=== PATIENT | female | born 1950 | race Caucasian/White ===

== ENCOUNTER 2019-02-18 11:40 | Observation (INO) | payer MEDICARE, OTHER ==
[~2019-02-18] VITALS: Ht 165.1 cm; Wt 90.7 kg
--- NOTE | ~2019-02-18 | HEMODYNAMI ---
PATIENT:ELANA CHERRY MEDICAL RECORD: [id number] : 48 LOCATION:[facility] D.2117 ADMISSION DATE: 02/18/19 Generatedon:02/19/201911:13 Patient name: ELANA CHERRY Patient #: [id number] SSN: : Date of study: 02/19/2019 Page: Of Hemodynamic Procedure Report Patient Data Patient Demographics Procedure consent was obtained First Name: ELANA Gender: Female Last Name: : 1950 [facility] Initial: MAYO Age: 68 year(s) Patient #: [id number] Race: Unknown Additional ID: [id number] Contact details [address]: [address] [place] [address] State: [place] City: [place] Zip code: [address] Admission Admission Data Admission Date: 02/18/2019 Admission Time: 14:12 Arrival Date: 02/18/2019 Arrival Time: 14:12 Admit Source: Other Insurance Payor: Medicare Room #: D.2117 Height (in.): 64.96 BSA: 1.98 (m2) Height (cm.): 165 BMI: 33.39 (kg/m2) Weight (lbs.): 200.4 Weight (kg.): 90.9 Lab Results Lab Result Date: 02/19/2019 Lab Result Time: 0:00 Biochemistry Name Units Result Min Max BUN mg/dl 17 --(---*)-- 7 18 Creatinine mg/dl 1.1 --(--*-)-- 0.6 1.3 CBC Name Units Result Min Max Hemoglobin g/dl 11.7 *-(----)-- 13.5 17.5 Procedure Procedure Types Cath Procedure Diagnostic Procedure [facility] w/Coronaries Procedure Description Procedure Date Procedure Date: 02/19/2019 Procedure Start Time: 11:01 Procedure End Time: 11:11 Procedure Staff Name Function Yasir Quiros MD Performing Physician Jian Montes De Oca RN Nurse Waldo White RT Scrub Adonis Varela RT Monitor Procedure Data Cath Procedure Fluoroscopy Diagnostic fluoroscopy Total fluoroscopy Time: 0.9 time: 0.9 min min Diagnostic fluoroscopy Total fluoroscopy dose: 385 dose: 385 mGy mGy Contrast Material Contrast Material Type Amount (ml) Isovue 370 46 Entry Location Entry Primary Successful Side Size Upsize Upsize Entry Closure Flores ccessful Closure Location (Fr) 1 (Fr) 2 (Fr) Remarks Device Remarks Radial Right 6 Fr Mechanical artery Short Compression Estimated blood loss: 10 ml Procedure Complications No complications Procedure Medications Medication Administration Route Dosage 0.9% NaCl I.V. 100 ml/hr Oxygen etCO2 Nasal cannula 2 l/min Heparin Flush Bag added to field 2 bags (1000units/500ml NS) Lidocaine 2% added to field 20 Radial Cocktail added to field 1 syringe (Verapamil 2mg/Nitro 400mcg/Heparin 1500units) Radial Cocktail I.A. 1 syringe (Verapamil 2mg/Nitro 400mcg/Heparin 1500units) Versed I.V. 1 mg Fentanyl I.V. 50 mcg Hemodynamics Rest BSA: 1.98 (m2) HGB: 11.7 (g/dl) O2 Consumption: Estimated: 186.7 (ml/min) O2 Con sumption indexed: Estimated:94.29 (ml/min/m) Heart Rate: 75 (bpm) Pressure Samples Time Site Value (mmHg) Purpose Heart Use Rate(bpm) 11:03 LV 89/7,9 Snapshot 84 11:04 AO 117/96(106) Pullback 82 11:04 LV 106/-19,85 Pullback 82 Gradients Valve Time Site 1 Site 2 Mean SEP/DFP Peak To Heart Use (mmHg) (sec/min) Peak Rate (mmHg) (bpm) Aortic 11:04 LV AO 0 13 0 82 106/-19,85 117/96(106) Calculations Valve P-P Mean Valve Index Valve Source Name Gradient Area Flow (cm2) Aortic 0 0 0 0 Snapshots Pre Cath Intra NCS Post Cath Vital Signs Time Heart Resp SPO2 etCO2 NIBP (mmHg) Rhythm Pain Sedation Rate (ipm) (%) (mmHg) Status Level (bpm) 10:52:45 73 15 99 52 156/87(125) NSR 0 (11) 10(A) , No pain 10:56:47 79 19 100 55 157/95(126) NSR 0 (11) 10(A) , No pain 11:00:53 84 11 94 49.8 161/96(127) NSR 0 (11) 10(A) , No pain 11:05:07 76 14 92 30 123/81(101) NSR 0 (11) 10(A) , No pain 11:08:52 85 19 92 23.7 140/115(132) NSR 0 (11) 10(A) , No pain Medications Time Medication Route Dose Verified Delivered Reason Notes Effectiveness by by 10:56:11 0.9% NaCl I.V. 100 Jian Jian Per ml/hr Tavon Montes De Oca physician RN RN 10:56:20 Oxygen etCO2 2 l/min Jian Jian for low 02 Nasal Lorigan Jessiigan sats cannula RN RN 10:56:36 Heparin Flush added 2 bags Jian Jian used for Bag to Lorigan Lorigan procedure (1000units/500ml field RN RN NS) 10:56:47 Lidocaine 2% added 20ml Jian Jian for local to vial Lorigan Lorigan anesthetic field MARSHALL RN 10:57:05 Radial Cocktail added 1 Jian Jian used for (Verapamil to syringe Lorigan Lorigan procedure 2mg/Nitro field MARSHALL RN 400mcg/Heparin 1500units) 10:57:45 Versed I.V. 1 mg Jian Jian for sedation Tavon Montes De Oca RN RN 10:57:56 Fentanyl I.V. 50 mcg Jian Jian for sedation Tavon Montes De Oca RN RN 11:04:17 Radial Cocktail I.A. 1 Jian Yasir for (Verapamil syringe Lorigan Catlett vasodilation 2mg/Nitro ROLANDO CARABALLO 400mcg/Heparin 1500units) Procedure Log Time Note 8:41:09 Time tracking: Regular hours (M-F 7:00 - 5:00) 8:41:13 Plan of Care:Hemodynamics will remain stable., Cardiac rhythm will remain stable., Comfort level will be maintained., Respiratory function will remain adequate., Patient/ family verbilizes understanding of procedure., Procedure tolerated without complication., Recovers from procedure without complications.. 8:43:22 Lab Result : BUN 17 mg/dl 8:43:22 Lab Result : Creatinine 1.1 mg/dl 8:43:22 Lab Result : Hemoglobin 11.7 g/dl 8:43:25 Admit Source: Other 8:43:29 Patient Height : 64.96 inches 8:43:32 Patient Weight : 200.4 lbs 8:43:40 Insurance Payor : Medicare 8:43:46 Arrival Date: 02/18/2019 2:12:00 PM 10:12:26 Waldo HERNÁNDEZ(R) sent for patient. Start room use. 10:41:53 Patient received from Med II to CCL 2 Alert and oriented. Tansferred to table in Supine position. 10:41:54 Warm blankets applied, and alie hugger turned on for patient comfort. 10:41:54 Correct patient and procedure confirmed by team. 10:41:56 Signed procedure consent form obtained from patient. 10:41:56 ECG and BP/O2 sat monitors applied to patient. 10:47:50 Vital chart was started 10:54:51 Baseline sample Acquired. 10:54:57 Rhythm: sinus rhythm 10:54:58 Full Disclosure recording started 10:55:01 H&P Date Dictated: 02/19/2019 New H&P dictated by physician.. 10:55:03 Pre-procedure instructions explained to patient. 10:55:03 Pre-op teaching completed and patient verbalized understanding. 10:55:10 Family in patients room. 10:55:11 Patient NPO since Midnight. 10:55:14 Is the patient allergic to Iodine/contrast media? No. 10:55:15 Was the patient premedicated? No 10:55:16 Is patient on blood thinner?No 10:55:17 Patient diabetic? Yes. 10:55:18 If diabetic: On Metformin? No 10:55:32 Previous problem with sedation/anesthesia? Yes desat with sedation 10:55:34 Snore? Yes 10:55:35 Sleep apnea? Yes 10:55:36 Deviated septum? No 10:55:37 Opens mouth fully? Yes 10:55:42 Sticks out tongue? Yes 10:55:45 Airway obstruction? Yes copd 10:55:47 Dentures? No ? 10:55:50 Pre procedure: right dorsailis pedis pulse 2+ Normal; easily identifiable; not easily obliterated 10:55:52 Pre procedure: left dorsailis pedis pulse 2+ Normal; easily identifiable; not easily obliterated 10:55:54 Patient pain scale 0/10 ?. 10:55:59 IV patent on arrival in left forearm with 0.9% NaCl at [facility]. 10:56:01 Lab results completed and on chart. 10:56:05 Right Radial & Right Groin area was prepped with chlora-prep and draped in sterile fashion 10:56:06 Alarms reviewed by R. N. 10:56:06 Sharps counted by scrub and verified by R.N. 10:56:07 Physician arrived 10:56:08 --------ALL STOP TIME OUT------ 10:56:08 Final Timeout: patient, procedure, and site verified with staff and physician. All members of the team are in agreement. 10:56:10 5 Fr Medtronic Ultra 4.0 10:56:10 Right Radial & Right Groin site verified by team. 10:56:11 0.9% NaCl 100 ml/hr I.V. was administered by Jian Montes De Oca RN; Per physician; 10:56:13 Maximum allowable Isovue 370 dose 300ml. Physician notified. (300ml for normal creatinines. For patients with creatinine of 1.7 or higher multiply weight(kg) x 5 divided by creatinine.) 10:56:16 Fire Safety Assessment: A--An alcohol-based skin anteseptic being used preoperatively., C--Open oxygen or nitrous oxide is being used., D--An ESU, laser, or fiber-optic light is being used. 10:56:19 Physical assessment completed. ASA score P 2 - A patient with mild systemic disease as per Yasir Quiros MD. 10:56:20 Oxygen 2 l/min etCO2 Nasal cannula was administered by Jian Montes De Oca RN; for low 02 sats; 10:56:23 Sedation plan: IV Moderate Sedation Medication:Versed, Fentanyl 10:56:35 Use device set Radial Dx or PCI 10:56:36 Heparin Flush Bag (1000units/500ml NS) 2 bags added to field was administered by Jian Montes De Oca RN; used for procedure; 10:56:36 ACIST Syringe (76408) opened to sterile field. 10:56:37 Medline Cath Pack ([id number]) opened to sterile field. 10:56:37 Bag Decanter () opened to sterile field. 10:56:37 DIAGNOSTIC WIRE .035 260cm J wire (140387) opened to sterile field. 10:56:38 ACIST Hand Control (61833) opened to sterile field. 10:56:38 ACIST Manifold (74522) opened to sterile field. 10:56:39 Tegaderm 4 x 4 (1626W) opened to sterile field. 10:56:40 MBrace Wrist Support ([id number]) opened to sterile field. 10:56:41 SHEATH 6FR Slender (45-5550) opened to sterile field. 10:56:47 Lidocaine 2% 20ml vial added to field was administered by Jian Montes De Oca RN; for local anesthetic; 10:57:05 Radial Cocktail (Verapamil 2mg/Nitro 400mcg/Heparin 1500units) 1 syringe added to field was administered by Jian Montes De Oca RN; used for procedure; 10:57:45 Versed 1 mg I.V. was administered by Jian Montes De Oca RN; for sedation; 10:57:56 Fentanyl 50 mcg I.V. was administered by Jian Montes De Oca RN; for sedation; 10:59:09 Procedure started. 11:00:11 ULTRA 4.0 opened to sterile field. 11:01:14 A 6 Fr Short sheath was inserted into the Right Radial artery 11:01:57 Local anesthetic to right radial artery with Lidocaine 2% by Yasir Quiros MD.INITIAL ACCESS ONLY 11:02:08 Zero performed for pressure channel P1 11:02:19 Zero performed for pressure channel P1 11:04:17 Radial Cocktail (Verapamil 2mg/Nitro 400mcg/Heparin 1500units) 1 syringe I.A. was administered by Yasir Quiros MD; for vasodilation; 11:05:19 LV gram done using SOMMER 11:05:23 Injector settings: Ml/sec: 5, Volume: 15, 11:05:25 LV hemodynamics recorded. 11:05:36 EF : 55 % 11::40 LCA angiography performed. 11:05:43 RCA angiography performed. 11:06:34 Catheter removed. 11:08:03 Sheath removed intact; hemostasis achieved with Mechanical Compression to the Right Radial artery. 11:08:39 Procedure ended.(Physican Out) 11:09:23 Fluoroscopy time 00.90 minutes. 11::28 Flurop Dose total: 385 11::28 Fluoroscopy dose: 385 mGy 11::33 Contrast amount:Isovue 370 46ml. 11:09:37 Sharps counted by scrub and verified by R.N. 11:09:39 TR band inflated with 12cc of air. 11:09:40 Insertion/operative site no bleeding no hematoma. 11:09:46 Post right radial artery:stable, soft, clean and dry 11:09:47 Post Procedure Pulses reassessed and unchanged 11:09:49 Post-procedure physical assessment completed. ASA score P 2 - A patient with mild systemic disease as per Yasir Quiros MD. 11:09:51 Post procedure rhythm: unchanged. 11:09:53 Estimated blood loss: 10 ml 11:09:54 Post procedure instruction explained to patient.Patient verbalizes understanding. 11:09:55 Patient needs reinforcement of post procedure teaching. 11:10:37 Procedure and supply charges have been captured, reviewed, submitted and are correct. 11:10:40 Procedure Complication : No complications 11:10:57 Vital chart was stopped 11:10:57 See physician's report for complete and final results. 11:11:09 Report given to PCU. 11:11:11 Patient transfered to PCU with Stretcher. 11:11:13 Procedure ended. 11:11:13 Full Disclosure recording stopped 11:11:18 End room use (Document Last) Device Usage Item Name Manufacture Quantity Catalog Hospital Part Current Minimal Lot# / Number Charge Number Stock Stock Serial# Code ACIST Acist 1 26239 369958 119929 855550 20 Syringe Medical (12258) Systems Inc Medline Medline 1 [id number] 679316 23419 715962 5 Cath Pack ([id number]) Bag Microtek 1 2001S 162568 92232 093223 5 Decanter Medical Inc. () DIAGNOSTIC St Jeremy 1 961884 771363 097182 213019 30 WIRE .035 260cm J wire (865160) ACIST Hand Acist 1 45114 910187 209622 144449 5 Control Medical (06204) Systems Inc ACIST Acist 1 35840 597438 199228 553828 5 Manifold Medical (89664) Systems Inc Tegaderm 4 3M 1 1626W 721633 794048 802898 5 x 4 (1626W) MBrace Advanced 1 140-0250-00 532391 65031 333334 5 Wrist Vascular Support Dynamics ([id number]) SHEATH 6FR Terumo 1 [id number] 095050 923167 616972 5 Slender (30-7081) ULTRA 4.0 Unknown 1 0 0 Signature Audit [place] Stage Time Signature Unsigned Intra-Procedure 02/19/2019 Adonis Varela 11:13:47 AM RT(R) Signatures Monitor : Adonis Varela RT Signature : Date : Time : [facility] [address] [place] [address]
[2019-02-18] MEDS ORDERED: COREG6.25 MG PO (11:56)
[2019-02-18] MEDS ORDERED: LISINOPRIL20 MG PO (11:56)
[2019-02-18] MEDS ORDERED: SYNTHROID200 MC1 PO (11:56)
[2019-02-18] MEDS ORDERED: NEURONTIN 300300 MG PO ×2 (11:57)
[2019-02-18] MEDS ORDERED: REQUIP1 MG PO ×2 (11:58→14:59)
[2019-02-18] MEDS ORDERED: K-DUR20 MEQ PO (11:58)
[2019-02-18] MEDS ORDERED: CYMBALTA60 MG PO ×2 (11:59→14:56)
[2019-02-18] MEDS ORDERED: DEMADEX20 MG PO (11:59)
[2019-02-18] MEDS ORDERED: TRAZODONE HCL150 MG PO (12:00)
[2019-02-18] MEDS ORDERED: NOVOLOG100 UNIT/1 SC (12:05)
[2019-02-18] MEDS ORDERED: LANTUS INSULIN10 ML SC (12:05)
[2019-02-18 12:31] LABS: BASOPHILS 0.4 % (0-2); EOSINOPHILS 2.8 % (0-7); HEMATOCRIT 37.7 % (36.0-48.0); HEMOGLOBIN 12.1 g/dL (12-16); IMMATURE GRANULOCYTES 0.6 % (0-5); LYMPHOCYTES 37.9 % (15-50); MCHC 32.1 g/dL (31.0-37.0); MCV 81.1 fL (80.0-100.0); MONOCYTES 4.5 % (2-11); NEUTROPHILS 53.8 % (40-80); PLATELET COUNT 162 10x3/uL (130-400); RBC 4.65 10x6/uL (4.00-5.40); RDW 14.9 % (11.5-14.5); WBC 12.7 10x3/uL (4.8-10.8)
[2019-02-18 12:43] LABS: APTT 33.2 SECONDS (22.8-39.4); INR 0.98 (0.85-1.17); PROTIME 12.5 SECONDS (11.6-15.0)
[2019-02-18 12:46] LABS: ALBUMIN 3.6 g/dL (3.4-5.0); ALKALINE PHOSPHATASE 94 U/L (46-116); ALT (SGPT) 25 U/L (10-68); BILIRUBIN - TOTAL 0.34 mg/dL (0.2-1.3); CALC OSMOLALITY 288 mosm/kg (275-300); CALCIUM 8.8 mg/dL (8.5-10.1); CARBON DIOXIDE 31.9 mmol/L (21.0-32.0); CHLORIDE - SERUM 102 mmol/L (98-107); GLUCOSE 210 mg/dL (74-106); POTASSIUM - SERUM 3.6 mmol/L (3.5-5.1); PROTEIN - SERUM 7.2 g/dL (6.4-8.2); SODIUM 141 mmol/L (136-145); UREA NITROGEN 17 mg/dL (7-18); eGFR NON AFRICAN AMERICAN 58 mL/min (90-120)
[2019-02-18 12:52] VITALS: BP 151/93
[2019-02-18 12:57] LABS: CREATINE KINASE 149 UL (21-215); MAGNESIUM - SERUM 1.8 mg/dL (1.8-2.4); TROPONIN-I < 0.017 ng/mL (0.000-0.060)
--- NOTE | 2019-02-18 13:04 | NUR ---
PT STATES THAT SHE IS PAIN FREE AFTER 1 NTG.
[2019-02-18 13:11] VITALS: BP 151/94
[2019-02-18] MEDS ORDERED: ROPINIROLE HCL2 MG PO (14:58)
[2019-02-18] MEDS ORDERED: SINGULAIR10 MG PO (15:00)
[2019-02-18] MEDS ORDERED: RESTORIL15 MG PO (15:00)
[2019-02-18 15:01] VITALS: BP 139/96; BMI 33.3
[2019-02-18] MEDS ORDERED: IPRAT-ALBUT 0.5-3 ML UPD (15:01)
--- NOTE | 2019-02-18 15:26 | NUR ---
PT WAS A NEW ADMIT FROM ER. A&O SITTING UP IN BED. ADMISSION WORKUP COMPLETED. PT DENIES ANY CHEST PAIN AND STATES SHE NEVER HAD ANY THAT SHE ACTUALLY CAME IN FOR A VERY HARSH COUGH WHICH HAS MADE HER THROAT VERY SORE. PT IN PAIN NOW REQUESTING THROAT RELIEF. PAGED PRIMARY AND REC'D NEW ORDERS WILL TRY TO MAKE PT COMFORTABLE. SHE VOICED THANKS. WILL CTM.
[2019-02-18 18:58] LABS: CKMB 2.1 U/L (0.0-3.6); CREATINE KINASE 127 UL (21-215)
[2019-02-18 19:09] LABS: TROPONIN-I < 0.017 ng/mL (0.000-0.060)
--- NOTE | 2019-02-18 19:30 | NUR ---
RESUMING PATIENT CARE. PATIENT IS RESTING COMFORTABLY IN BED. RESPIRATIONS ARE EVEN AND UNLABORED. NEEDS MET. NO S/S OF DISTRESS. NO C/O PAIN. CALL LIGHT WITHIN REACH. WILL CPOC.
--- NOTE | 2019-02-18 19:38 | NUR ---
PROVIDED PT WITH BRIEFS REQUESTED. PT STATES SHE IS INCONTINENT AND DOESNT REALIZE WHEN SHE GOES TO THE BR. WE ARE NEEDING A UA I EXPLAINED PROCESS AND SHE STATES SHE WILL TRY BUT IF UNABLE TO COLLECT WE WILL HAVE TO PERFORM AN IN/OUT CATH. PT VERBALIZED UNDERSTANDING. BEDSIDE SHIFT REPORT COMPLETED. PT DENIES ANY FURTHER NEEDS FROM ME AT THIS TIME.
[2019-02-18 20:00] VITALS: BP 145/92
[2019-02-19 02:33] LABS: BASOPHILS 0.4 % (0-2); EOSINOPHILS 3.3 % (0-7); HEMATOCRIT 36.8 % (36.0-48.0); HEMOGLOBIN 11.7 g/dL (12-16); IMMATURE GRANULOCYTES 0.6 % (0-5); LYMPHOCYTES 37.8 % (15-50); MCHC 31.8 g/dL (31.0-37.0); MCV 81.8 fL (80.0-100.0); MEAN PLATELET VOLUME 9.6 fL (7.4-10.4); MONOCYTES 6.1 % (2-11); NEUTROPHILS 51.8 % (40-80); PLATELET COUNT 156 10x3/uL (130-400); RDW 14.9 % (11.5-14.5); WBC 12.3 10x3/uL (4.8-10.8)
[2019-02-19 03:01] LABS: CALC OSMOLALITY 285 mosm/kg (275-300); CALCIUM 8.5 mg/dL (8.5-10.1); CARBON DIOXIDE 30.4 mmol/L (21.0-32.0); CHLORIDE - SERUM 103 mmol/L (98-107); CKMB 1.9 U/L (0.0-3.6); CREATINE KINASE 104 UL (21-215); CREATININE - SERUM 1.1 mg/dL (0.6-1.3); GLUCOSE 182 mg/dL (74-106); POTASSIUM - SERUM 3.5 mmol/L (3.5-5.1); SODIUM 140 mmol/L (136-145); TROPONIN-I < 0.017 ng/mL (0.000-0.060); UREA NITROGEN 17 mg/dL (7-18); eGFR NON AFRICAN AMERICAN 52 mL/min (90-120)
[2019-02-19 04:00] VITALS: BP 137/78
--- NOTE | 2019-02-19 04:07 | NUR ---
PATIENT ASKED FOR MEDICATION FOR HER HEADACHE. PATIENT HAD TYLENOL FOR A HEADACHE. ATTEMPTED TO GIVE PATIENT THE TYLENOL AND SHE REFUSED THAT THAT SHE WOULD NOT TAKE THE TYLENOL BECAUSE IT WOULD DO NO GOOD.
--- NOTE | 2019-02-19 07:00 | NUR ---
AM ROUNDS COMPLETED. INTRODUCED MYSELF TO PT PRIMARY RN FOR TODAYS SHIFT. PT IS A&O LYING BACK IN BED RESTING QUIETLY. PT C/O HER MIGRAINE COMING BACK AND STATES SHES BEEN CRYING ALL NIGHT. WILL PAGE PRIMARY TO TRY AND GET HER RELIEF. PT VOICED THANKS. 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 CONSENTS ARE SIGNED AND IN CHART AND PT HAS HAD HER BATH. WILL REVIEW CHART AND ORDERS AND BRING MORNING MEDICATIONS. NO IMMEDIATE NEEDS. CL IN REACH, BED IN LOWEST, SIDE RAILS X2. WILL CTM.
[2019-02-19 09:18] VITALS: BP 145/86
--- NOTE | 2019-02-19 09:30 | NUR ---
SOLDERING MACHINE OPERATOR AUTOMATIC CALLED TO PRE-OP PT. PRE-OP MEDICATIONS GIVEN. PT RESTING QUIETLY IN BED AND DENIES ANY CURRENT PAIN OR NEEDS. CL IN REACH. WILL CTM.
[2019-02-19 09:46] VITALS: Ht 165.1 cm; Wt 90.7 kg
--- NOTE | 2019-02-19 11:12 | CN ---
PATIENT NAME:ELANA CHERRY MEDICAL RECORD: [id number] : 48 LOCATION:D.Robert D.2117 ADMIT DATE: 02/18/19 ACCOUNT: [id number] CONSULTING PHYSICIAN: BENITA RAMÍREZ MD REFERRING PHYSICIAN: REY RUSS MD DATE OF CONSULTATION: 02/18/2019 HISTORY OF PRESENT ILLNESS: A 68-year-old female with a history of cardiac arrhythmia status post loop monitor. No high-grade arrhythmias being diagnosed at this time, this was almost 3 years ago. She has a history of hypertension as well as diabetes mellitus, dyslipidemia, has been having intermittent chest pain, chest tightness and pressure, they are kind of by shortness of breath, dizzy. Has some cough. Cardiac enzymes negative at this point. She has noticed increasing tightness and pressure with even ADLs at this point. We are asked to see her concerning her cardiovascular status. PAST MEDICAL HISTORY: Includes: 1. History of hypertension. 2. Hyperlipidemia. 3. Diabetes mellitus. 4. Cardiac arrhythmias, type unspecified. 5. Peripheral neuropathy. MEDICATIONS: Typically include insulin, lisinopril 20 mg daily, Synthroid 200 mcg every day, Demadex 20 every day, trazodone 100 at bedtime, Restoril 30 mg at bedtime, Neurontin 900 bedtime, Cymbalta 120 every day, and carvedilol 6.25 b.i.d. ALLERGIES: INCLUDE COMPAZINE, MORPHINE, IBUPROFEN, METFORMIN, AND BENADRYL. SOCIAL HISTORY: Nonsmoker, nondrinker, typically takes care of all of her ADLs. Exercise in the form of physical therapy at home. REVIEW OF SYSTEMS: The patient reports easy bruising but reports no swollen glands. The patient reports no fever, no night sweats, no significant weight gain, no significant weight loss. No significant exercise tolerance. The patient reports no dry eyes, no irritation, no vision change. Patient reports no difficulty hearing and no ear pain. Patient reports no frequent nose bleeds or nose and sinus problems. Patient reports on arm pain on exertion. No shortness of breath while lying down. No history of heart murmur. Patient reports no cough, no wheezing or coughing up blood. Patient reports no abdominal pain, no vomiting. Normal appetite. No diarrhea and not vomiting blood. No nausea and no constipation. Patient reports no incontinence. No difficulty urinating. No hematuria. No increased frequency. Patient reports no muscle aches. No weakness, no arthralgias, no back pain. No swelling of the extremities. Patient reports no abnormal mole, no jaundice, no rashes. Reports no loss of consciousness. No weakness and no numbness. No seizures, dizziness, or headaches. The patient reports no depression, no sleep disturbance, feeling safe in a relationship and no alcohol abuse. Patient reports on fatigue. Reports no runny nose or sinus pressure. No itching, no hives, and no frequent sneezing. PHYSICAL EXAMINATION: GENERAL: Pleasant female in no acute distress. VITAL SIGNS: 132/93, pulse 95 and regular. CONSULT REPORT [id number] ELANA CHERRY HEENT: Normocephalic and atraumatic. NECK: No bruits noted. HEART: Regular, II/ systolic ejection murmur. LUNGS: Good air excursion. ABDOMEN: Soft, nontender. EXTREMITIES: Pulses 2+. There is no edema. DIAGNOSTIC DATA: ECG shows poor R-wave progression, nonspecific ST-T changes inferiorly. IMPRESSION: Acute coronary syndrome, accelerated angina. PLAN: Diagnostic angiography, intervention based on above. TRANSINT:[id number] Voice Confirmation ID: [id number] DOCUMENT ID: [id number] BENITA RAMÍREZ MD at 1112 CC: [id number] DICTATION DATE: 02/18/19 1607 LIBRARY MEDIA SPECIALIST: 02/18/19 2230 [place] [address]
--- NOTE | 2019-02-19 11:49 | NUR ---
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 NO BLEEDING OR S/S OF HEMATOMA NOTED. VSS AND BEING MONITERED PER POST PROCEDURE POLICY. FAMILY AT BEDSIDE. WILL CTM.
[2019-02-19 12:11] VITALS: BP 126/69
--- NOTE | 2019-02-19 12:20 | NUR ---
PT KEEPS FALLING ASLEEP AND DESATTING IN THE 80S. ONCE PT IS WOKE UP SHE IMMEDIATELY JUMPS BACK TO 94% ON 3L NC. ALL OTHER VITALS ARE UNREMARKABLE. PT IS ON/OFF AWAKE BUT AWAKENS VERY EASILY BY VOICE. NS INFUSING VIA L.AC PIV ORDERED. PT SITTING UP WAITING ON LUNCH TRAY. R.WRIST TR BAND IN PLACE AND HAS NO BLEEDING OR S/S OF HEMATOMA NOTED. CL IN REACH. WILL CTM.
--- NOTE | 2019-02-19 13:10 | NUR ---
PT ATE 100% OF HER LUNCH. PT IS SITTING UP IN BED RESTING WITH FAMILY AT BEDSIDE. RR NONLABORED AND SHE REMOVED HER OXGYEN AND PULSE OX IS STAYING >92%. VSS AND BEING MONITERED. R.WRIST TR BAND REMAINS FREE OF BLEEDING OR HEMATOMA. CL IN REACH. WILL CTM.
[2019-02-19 13:12] VITALS: BP 123/65
--- NOTE | 2019-02-19 14:23 | NUR ---
REMOVED HALF AIR FROM R.WRIST TR BAND AND NO BLEEDING NOTED. WILL CONTINUE TO REMOVE PER PROTOCOL. VSS AND FAMILY AT BEDSIDE. CL IN REACH. WILL CTM.
--- NOTE | 2019-02-19 15:30 | NUR ---
ALL AIR WAS REMOVED FROM PTS R.WRIST TR BAND AND NO BLEEDING WAS NOTED. PLACED BAND-AID AND WILL CONTINUE TO MONITER FOR HEMATOMA OR BLEEDING. VSS. PT DENIES ANY CURRENT NEEDS AND IS INQUIRING ABOUT DISCHARGING. WILL PAGE PRIMARY AND FIND OUT.
[2019-02-19] MEDS ORDERED: TESSALON PERLE100 MG PO (16:12)
[2019-02-19] MEDS ORDERED: ROBITUSSIN AC (WITH PO (16:13)
--- NOTE | 2019-02-19 17:51 | NUR ---
DISCHARGE TEACHING PROVIDED AND PAPERS SIGNED. FAMILY SURROUNDING BEDSIDE. PT DENIES ANY QUESTIONS OR CONCERNS. D/C PTS L.AC PIV WITH CATHETER TIP FULLY INTACT. RETURNED TELEMETRY TO Apportable SEP. PT IS FINISHING UP DINNER AND STATES THEN SHE WILL GET DRESSED AND BE READY TO GO. NO FURTHER NEEDS.
--- NOTE | 2019-02-22 08:37 | MORECARE ---
CASE MANAGEMENT DISCHARGE SUMMARY PATIENT: ELANA CHERRY UNIT: [id number] ADM DATE: 02/18/19 AGE: 68 : [birth year] SEX: F ROOM/BED: D.8793 AUTHOR: ESPERANZA GRANGER PHYSICIAN: REFERRING PHYSICIAN: REY RUSS MD DATE OF SERVICE: 02/22/19 Discharge Plan Patient Name: [facility]LANA CHERRY [facility] : 1950 Planned Disposition: Home Anticipated Discharge Date: 02/19/19 Discharge Date: 02/19/2019 Expected LOS: 1 Initial Reviewer: [email or web address] Initial Review Date: 02/22/2019 Generated: 02/22/19 9:37 am Patient Name: ELANA CHERRY Page [phone] at 0837 All edits/amendments must be made on the electronic document DICTATION DATE: 02/22/19835 ARCHERY INSTRUCTOR: LISS 02/22/1937 RPT#: [id number] DC DATE:02/19/19 STATUS: DIS IN [facility] [address] [place] [address] END OF REPORT
--- NOTE | 2019-02-22 09:55 | EC ---
PATIENT:ELANA CHERRY DATE OF SERVICE: 02/18/19 SEX: F MEDICAL RECORD: [id number] DATE OF : [birth year] LOCATION:D.M2 D.211 AGE OF PATIENT: 68 ADMISSION DATE: 02/18/19 REFERRING PHYSICIAN: INTERPRETING PHYSICIAN: BENITA RAMÍREZ MD ECHOCARDIOGRAM REPORT ECHO CHARGES 4 ECHO COMPLETE Date: 02/19/19 CLINICAL DIAGNOSIS: ECHOCARDIOGRAPHIC MEASUREMENTS (adult normal given) AC root (d.<3.7cm) 3.1 cm LV Septum d (<1.2 cm> 1.4 cm Valve Excursion 1.7 cm LV Septum (systole) 1.6 cm Left Atria (s.<4.0cm> 2.8 cm LVPW d(<1.2cm) 0.8 cm RV (d.<2.3cm) 3.1 cm LVPW (sytole) 1.3 cm LV diastole(<5.6CM) 5.4 cm MV E-F(>70mm/sec) cm LV systole 4.6 cm LVOT Diameter 1.9 cm MV exc.(>10mm) cm Est.ejection fraction (50-75%) % DOPPLER: LVIT cm/sec A 78.0 cm/sec E 54.0 cm/sec LA cm/sec RVSP 32.2 mmHg LVOT 91.0 cm/sec AOP1/2T m/s Asc. Ao 135 cm/sec RVOT 59.0 cm/sec RA cm/sec PA 96.0 cm/sec AV Gradient Peak 7.3 mmHg AV Mean 4.1 mmHg AV Area 1.9 cm MV Gradient Peak 3.8 mmHg MV Mean 2.4 mmHg MV Area cm COMMENTS: Data Entry Coordinator: Barbara PALMA Printed Circuit Boards Inspector: 2 Dr. Fox TAPE# PACS Pericardial Effusion N DATE OF SERVICE: Adequate 2D, color flow, spectral Doppler, and M-Mode LVH is present. LV internal dimensions are normal. Wall motion is normal. EF is greater than or equal to 55%. Aortic valve is tricuspid. There is no evidence of stenosis by Doppler interrogation. Left atrium is normal. Mitral valve shows no prolapse. Trace MR. Right-sided chambers are grossly normal. Trace TR. ECHOCARDIOGRAM REPORT [id number] ELANA CHERRY TRANSINT:[id number] Voice Confirmation ID: [id number] DOCUMENT ID: [id number] BENITA RAMÍREZ MD at 0955 CC: [id number] DICTATION DATE: 02/19/19 1129 PARACHUTE FOLDER: 02/19/19 1335 DIS IN 02/19/19 [facility] [address] [place] [id number]
--- NOTE | 2019-02-22 09:55 | OP ---
PATIENT NAME: ELANA CHERRY MEDICAL RECORD: [id number] :48 LOCATION:D.M2 D.2117 ADMISSION DATE:02/18/19 SURGEON: BENITA RAMÍREZ MD DATE OF OPERATION: 02/19/2019 PROCEDURE: Left heart catheterization, selective coronary angiography, right radial approach. CATHETERS: Radial sheath, [place] catheter. The procedure was well tolerated. The patient returned to nelson. Sheath was removed. TR band was placed. FINDINGS: Left ventriculography in 30-degree SOMMER view: Normal wall motion and normal systolic function. CORONARY ANATOMY: LEFT MAIN: Left main is free of disease. LAD: Free of disease in the diagonal system. CIRCUMFLEX: Free of disease in the marginal system. RIGHT CORONARY ARTERY: Dominant artery, gives rise to PDA, free of disease. IMPRESSION: LV systolic function. Normal coronary anatomy. TRANSINT:[id number] Voice Confirmation ID: [id number] DOCUMENT ID: [id number] BENITA RAMÍREZ MD at 0955 CC: [id number] DICTATION DATE: 02/19/19 1112 OPHTHALMOLOGY SURGICAL TECHNICIAN: 02/19/19 1216 DIS IN 02/19/19 [facility] [address] [place] [address]
== END 2019-02-19 18:45 | disposition home or self-care (01) ==
LOC: D.ER 11:40 → D.M2 14:12 → OBSVTIME 14:13 → D.M2 02-19 18:45
PROVIDERS: Emergency Medicine; ADMIT Internal Medicine Nephrology; ATTEND Internal Medicine Nephrology
DX: I24.9 Acute ischemic heart disease, unspecified (principal); I20.0 Unstable angina; I10 Essential (primary) hypertension; G47.33 Obstructive sleep apnea (adult) (pediatric); M32.9 Systemic lupus erythematosus, unspecified; E78.5 Hyperlipidemia, unspecified; E11.42 Type 2 diabetes mellitus with diabetic polyneuropathy

== ENCOUNTER 2019-02-28 14:56 | Emergency (ER) | payer MEDICARE, OTHER ==
[~2019-02-28] VITALS: Ht 165.1 cm; Wt 90.9 kg
[~2019-02-28 14:56] MED LIST: COREG6.25 MG PO; CYMBALTA60 MG PO; DEMADEX20 MG PO; IPRAT-ALBUT 0.5-3 ML UPD; K-DUR20 MEQ PO; LANTUS INSULIN10 ML SC; LISINOPRIL20 MG PO; NEURONTIN 300300 MG PO; NOVOLOG100 UNIT/1 SC; REQUIP1 MG PO; RESTORIL15 MG PO; ROBITUSSIN AC (WITH PO; ROPINIROLE HCL2 MG PO; SINGULAIR10 MG PO; SYNTHROID200 MC1 PO; TESSALON PERLE100 MG PO; TRAZODONE HCL150 MG PO
[2019-02-28 15:25] VITALS: Ht 165.1 cm; Wt 90.9 kg
[2019-02-28] MEDS ORDERED: IMITREX6 MG/0.51 SQ (19:22)
[2019-02-28] MEDS ORDERED: PHENERGAN25 M1 PO (19:22)
[2019-02-28 19:49] VITALS: BP 128/90
== END 2019-02-28 19:44 | disposition home or self-care (01) ==
LOC: D.ER 14:56
DX: G43.909 Migraine, unspecified, not intractable, without status migrainosus (principal)

== ENCOUNTER 2019-03-18 13:58 | Inpatient (IN) | payer MEDICARE, OTHER ==
[~2019-03-18] VITALS: Ht 165.1 cm; Wt 93.8 kg
[~2019-03-18 13:58] MED LIST changes: +IMITREX6 MG/0.51 SQ; +PHENERGAN25 M1 PO
[2019-03-18 14:47] LABS: BASOPHILS 0.5 % (0-2); EOSINOPHILS 4.1 % (0-7); HEMATOCRIT 34.7 % (36.0-48.0); HEMOGLOBIN 10.8 g/dL (12-16); IMMATURE GRANULOCYTES 0.2 % (0-5); LYMPHOCYTES 42.4 % (15-50); MCH 25.4 pg (26.0-34.0); MCHC 31.1 g/dL (31.0-37.0); MCV 81.6 fL (80.0-100.0); MEAN PLATELET VOLUME 10.1 fL (7.4-10.4); MONOCYTES 3.9 % (2-11); NEUTROPHILS 48.9 % (40-80); PLATELET COUNT 155 10x3/uL (130-400); RBC 4.25 10x6/uL (4.00-5.40); RDW 15.4 % (11.5-14.5); WBC 8.4 10x3/uL (4.8-10.8)
[2019-03-18 15:21] LABS: APTT 35.1 SECONDS (22.8-39.4); INR 0.91 (0.85-1.17); PROTIME 11.8 SECONDS (11.6-15.0)
[2019-03-18 15:36] LABS: ALBUMIN 3.3 g/dL (3.4-5.0); ALKALINE PHOSPHATASE 63 U/L (46-116); ALT (SGPT) 36 U/L (10-68); BILIRUBIN - TOTAL 0.34 mg/dL (0.2-1.3); CALC OSMOLALITY 286 mosm/kg (275-300); CALCIUM 8.7 mg/dL (8.5-10.1); CARBON DIOXIDE 31.6 mmol/L (21.0-32.0); CHLORIDE - SERUM 102 mmol/L (98-107); CREATININE - SERUM 1.2 mg/dL (0.6-1.3); GLUCOSE 220 mg/dL (74-106); POTASSIUM - SERUM 3.6 mmol/L (3.5-5.1); PROTEIN - SERUM 6.7 g/dL (6.4-8.2); SODIUM 139 mmol/L (136-145); UREA NITROGEN 17 mg/dL (7-18); eGFR NON AFRICAN AMERICAN 47 mL/min (90-120)
[2019-03-18 15:46] LABS: CKMB 11.2 U/L (0.0-3.6); CREATINE KINASE 508 UL (21-215); PRO BNP 65 pg/mL (0-125)
[2019-03-18 15:49] LABS: TROPONIN-I < 0.017 ng/mL (0.000-0.060)
[2019-03-18 18:26] VITALS: BP 146/74
[2019-03-18 18:26] LABS: APPEARANCE CLEAR (CLEAR); BILIRUBIN NEGATIVE (NEGATIVE); COLOR YELLOW (YELLOW); GLUCOSE NEGATIVE (NEGATIVE); KETONE NEGATIVE (NEGATIVE); NITRITE NEGATIVE (NEGATIVE); PROTEIN NEGATIVE (NEGATIVE); UROBILINOGEN NORMAL (NORMAL)
[2019-03-18 18:27] LABS: BACTERIA MODERATE /hpf (NONE SEEN); EPITHELIAL CELLS OCC /hpf (0-5); RED CELLS - URINE OCC /hpf (0-5); WHITE CELLS - URINE 0-5 /hpf (0-5)
[2019-03-18 20:00] VITALS: BP 145/80
[2019-03-18 20:33] LABS: % SATURATION 9 % (15-55); IRON 40 ug/dl (35-150); TOTAL IRON BIND CAPACITY 401 ug/dl (260-445); UNSAT IRON BIND CAPACITY 361 ug/dl (150-375)
[2019-03-18 21:38] VITALS: BP 145/80; BMI 37.5
[2019-03-18 22:20] LABS: CKMB 14.9 U/L (0.0-3.6); CREATINE KINASE 494 UL (21-215); TROPONIN-I < 0.017 ng/mL (0.000-0.060)
[2019-03-19] VITALS: BP 130/87
[2019-03-19 04:00] VITALS: BP 129/76
[2019-03-19 06:00] LABS: BASOPHILS 0.4 % (0-2); EOSINOPHILS 3.7 % (0-7); HEMOGLOBIN 11.6 g/dL (12-16); IMMATURE GRANULOCYTES 0.1 % (0-5); LYMPHOCYTES 38.4 % (15-50); MCH 25.3 pg (26.0-34.0); MCHC 30.5 g/dL (31.0-37.0); MEAN PLATELET VOLUME 9.7 fL (7.4-10.4); MONOCYTES 4.1 % (2-11); NEUTROPHILS 53.3 % (40-80); PLATELET COUNT 151 10x3/uL (130-400); RBC 4.58 10x6/uL (4.00-5.40); RDW 15.4 % (11.5-14.5); WBC 9.3 10x3/uL (4.8-10.8)
[2019-03-19 06:34] LABS: ALBUMIN 3.5 g/dL (3.4-5.0); BILIRUBIN - TOTAL 0.31 mg/dL (0.2-1.3); CALCIUM 8.9 mg/dL (8.5-10.1); CREATININE - SERUM 1.3 mg/dL (0.6-1.3); POTASSIUM - SERUM 3.5 mmol/L (3.5-5.1); PROTEIN - SERUM 7.1 g/dL (6.4-8.2)
[2019-03-19 06:40] LABS: ANION GAP 6.8 mmol/L (8-16)
[2019-03-19 06:41] LABS: CARBON DIOXIDE 40.7 mmol/L (21.0-32.0)
--- NOTE | 2019-03-19 07:00 | NUR ---
REPORT RECEIVED FROM NIGHTSHIFT AND CARE ASSUMED. SHE IS LYING ON LEFT SIDE IN BED WITH CPAP ON THAT SHE WEARS AT HS. ALERT ABLE TO VOICE NEEDS. RESP EVEN WITHOUT LABOR, DAUGHTER AT BEDSIDE. CL IN REACH. SHE AGREES TO WEAR HER MACHINE FOR A LITTLE LONGER THIS AM TO HELP WITH INCREASE IN CO2 LEVEL.
[2019-03-19 08:38] VITALS: BP 117/83
[2019-03-19 11:30] VITALS: BP 122/78
--- NOTE | 2019-03-19 12:17 | NUR ---
SHE REQUESTED A DOSE OF IMITREX FOR HER MIGRAINE THAT HAS NOT FULLY LET UP. NO OTHER C/O
[2019-03-19 14:48] VITALS: BP 110/80
--- NOTE | 2019-03-19 15:31 | NUR ---
SHE IS AWARE OF NEED FOR STOOL SPECIMEN, HAT IN BATHROOM. WILL CALL IF SHE HAS BM BUT STATES THAT MAY NOT BE TODAY.
--- NOTE | 2019-03-19 16:02 | NUR ---
TRANSPORTED PER CT STAFF TO RECEIVE CT SCAN AT THIS TIME. RESP EVEN WITHOUT LABOR NO CHANGE IN STATUS. TYLENOL GIVEN FOR GENERAL ACHES.
[2019-03-19 20:00] VITALS: BP 109/66
--- NOTE | 2019-03-19 22:58 | NUR ---
PT STATES:" SHE FEEL HARD TO BREATH. CALLED RESP STAFF. AND RESP STAFF GIVEN PRN TREATMENT FOR PT.
--- NOTE | 2019-03-19 23:01 | NUR ---
PT STATES SHE IS HAVING A HARD TIME TAKING A DEEP BREATH. PT NOW TAKING PRN DUONEB BREATHING TREATMENT WITH SOME RELIEF. HR 86, SPO2 96 ON 3L NC DIMINDIHED BS BILATERALLY. WILL CONTINUE TO MONITOR
[2019-03-20] VITALS: BP 111/56; BP 121/72
--- NOTE | 2019-03-20 02:12 | NUR ---
I have reviewed this patient and I concur with the Shift Assessment completed by the Licensed Practical Nurse today this shift.
--- NOTE | 2019-03-20 03:01 | NUR ---
LOVENOX GIVEN ORDERED. CALL LIGHT IN REACH.
[2019-03-20 04:00] VITALS: BP 100/48
[2019-03-20 04:26] LABS: BASOPHILS 0.4 % (0-2); EOSINOPHILS 2.3 % (0-7); HEMATOCRIT 35.4 % (36.0-48.0); HEMOGLOBIN 10.7 g/dL (12-16); IMMATURE GRANULOCYTES 0.1 % (0-5); LYMPHOCYTES 20.5 % (15-50); MCH 24.9 pg (26.0-34.0); MCHC 30.2 g/dL (31.0-37.0); MCV 82.5 fL (80.0-100.0); MEAN PLATELET VOLUME 9.9 fL (7.4-10.4); MONOCYTES 6.9 % (2-11); NEUTROPHILS 69.8 % (40-80); PLATELET COUNT 125 10x3/uL (130-400); RBC 4.29 10x6/uL (4.00-5.40); RDW 15.4 % (11.5-14.5); WBC 7.7 10x3/uL (4.8-10.8)
[2019-03-20 04:41] LABS: ALBUMIN 3.2 g/dL (3.4-5.0); ANION GAP 5.5 mmol/L (8-16); BILIRUBIN - TOTAL 0.31 mg/dL (0.2-1.3); CALCIUM 8.1 mg/dL (8.5-10.1); CARBON DIOXIDE 38.2 mmol/L (21.0-32.0); CREATININE - SERUM 1.5 mg/dL (0.6-1.3); MAGNESIUM - SERUM 1.7 mg/dL (1.8-2.4); POTASSIUM - SERUM 2.7 mmol/L (3.5-5.1); PROTEIN - SERUM 6.4 g/dL (6.4-8.2)
--- NOTE | 2019-03-20 04:57 | NUR ---
LAB CALLED, PT POTASSIUM 2.7, POTASSIUM 20MEQ GIVEN ORDERED.
--- NOTE | 2019-03-20 07:18 | NUR ---
PT ASLEEP WITH CPAP ON, DID NOT WAKE I ENTERED, DID NOT FURTHER DISTURB AT THIS TIME. NO DISTRESS NOTED, BREATHS EVEN/REGULAR/UNLABORED. CL IN REACH, SRX2.
[2019-03-20 09:32] VITALS: BP 106/58
--- NOTE | 2019-03-20 10:36 | MORECARE ---
CASE MANAGEMENT DISCHARGE SUMMARY PATIENT: ELANA CHERRY UNIT: [id number] ADM DATE: 03/18/19 AGE: 68 : 49 SEX: F ROOM/BED: D.2102 AUTHOR: ESPERANZA GRANGER PHYSICIAN: REFERRING PHYSICIAN: REY RUSS MD DATE OF SERVICE: 03/20/19 Discharge Plan Patient Name: ELANA CHERRY Facility: [facility]:[place] : 1950 Planned Disposition: Home Anticipated Discharge Date: Discharge Date: Expected LOS: Initial Reviewer: [email or web address] Initial Review Date: 03/20/2019 Generated: 03/20/19 11:36 am Comments DCP- Discharge Planning Updated by [email or web address]: Mana Padilla on 03/20/19 9:[address] Patient Name: ELANA CHERRY Admission Status: ER Accout number: [id number] Admission Date: 03-18-2019 : 1950 Admission Diagnosis: Attending: REY RUSS Current LOS: 2 Anticipated DC Date: Planned Disposition: Home Primary Insurance: MEDICARE A & B Discharge Planning Comments: CM AFTER OBTAINING VERBAL CONSENT COMPLETED INITIAL ASSESSMENT. PT WAS EDUCATED ON CM ROLE AND ON ALL SERVICES AVAILABLE LIKE DME, HOME HEALTH AND REHAB SERVICES. PT DENIES ANY NEEDS AT THIS TIME. LIVES WITH SPOUSE AND STATES HOME IS A SAFE DC PLAN. CM WILL CONT TO FOLLOW THRU STAY Senior Managing Director: Mana Padilla DCPIA - Discharge Planning Initial Assessment Updated by [email or web address]: Mana Padilla on 03/20/19 10:32 am * Is the patient Alert and Oriented? Yes * How many steps to enter\exit or inside your home? * PCP NONE * Pharmacy [facility] * Preadmission Environment Home with Family * ADLs Independent * Verbal permission to speak to the caregivers and representatives has been obtained from the patient. N/A * Additional services required to return to the preadmission environment? No * Can the patient safely return to the preadmission environment? Yes * Has this patient been hospitalized within the prior 30 days at any hospital? No Patient Name: ELANA CHERRY Page [phone] at 1036 All edits/amendments must be made on the electronic document DICTATION DATE: 03/20/19 103 CCO: LISS 03/20/19 1035 RPT#: [id number] SC DATE: STATUS: ADM IN [facility] [address] [place] [address] END OF REPORT
--- NOTE | 2019-03-20 10:42 | NUR ---
I have reviewed this patient and I concur with the Shift Assessment completed by the Licensed Practical Nurse today this shift.
[2019-03-20 11:00] VITALS: BP 89/44
--- NOTE | 2019-03-20 14:31 | NUR ---
PT B/P 89/44, STATES NO SIDE EFFECTS AT THIS TIME. WILL GIVE BOLUS OF NS AND ELEVATE LEGS.
--- NOTE | 2019-03-20 14:45 | NUR ---
PT STATES SHE'S FEELING A BIT SICKLY NOW, STATES SHE FEELS WEEK AND FLUSTURED. PUT PT IN SLIGHT [place] POSITON AND AM CURRENTLY RUNNING A BOLUS OF FLUID TO BRING B/P UP. WILL REASSES.
[2019-03-20 15:00] VITALS: BP 110/86
--- NOTE | 2019-03-20 15:50 | NUR ---
RECHECKED B/O, 110/65, WITHIN PTS NORMAL RANGE. PT STATES SHE STILL FEELS BAD BUT NO WORSE THAN SHE HAD BEEN. CL IN REACH, SRX2
--- NOTE | 2019-03-20 17:31 | NUR ---
PT IS AWAKE AND ORIENTED, GRANDDAUGHTER AT BEDSIDE. PT HAS HAD A ROUGH DAY, THE LOW B/PS (RESOLVED) FROM EARLIER MADE HER NERVOUS. SHE HAS OTHERWISE FELT TIRED AND ILL, STATING "I JUST DON'T FEEL WELL". NO COPMLAINTS/CONCERNS AT THIS TIME, GOING TO TAKE A NAP POST SUPPER WITH HER HOME CPAP. CL IN REACH, SRX2.
[2019-03-20 19:51] VITALS: BP 109/70
--- NOTE | 2019-03-20 21:40 | NUR ---
CHECKED PT FABS 226. 4 UNITS HUMULIN R ORDERED.
--- NOTE | 2019-03-20 21:56 | NUR ---
REST IN BED AND PLAY WITH CELL PHONE. DENIES NEEDS AT THIS TIME.
--- NOTE | 2019-03-21 00:57 | NUR ---
REST QUIETLY IN BED. RESP EVEN, NO S/S OF DISTRESS. CALL LIGHT IN REACH.
[2019-03-21 04:30] VITALS: BP 102/56
[2019-03-21 04:46] LABS: EOSINOPHILS 4.9 % (0-7); HEMATOCRIT 36.8 % (36.0-48.0); IMMATURE GRANULOCYTES 0.4 % (0-5); LYMPHOCYTES 26.5 % (15-50); MCH 24.9 pg (26.0-34.0); MCHC 29.9 g/dL (31.0-37.0); MCV 83.4 fL (80.0-100.0); MEAN PLATELET VOLUME 9.9 fL (7.4-10.4); MONOCYTES 6.3 % (2-11); NEUTROPHILS 60.9 % (40-80); PLATELET COUNT 106 10x3/uL (130-400); RBC 4.41 10x6/uL (4.00-5.40); RDW 15.5 % (11.5-14.5)
[2019-03-21 04:54] LABS: WBC 4.9 10x3/uL (4.8-10.8)
[2019-03-21 05:06] LABS: ALBUMIN 3.1 g/dL (3.4-5.0); ANION GAP 9.1 mmol/L (8-16); BILIRUBIN - TOTAL 0.29 mg/dL (0.2-1.3); CALCIUM 8.2 mg/dL (8.5-10.1); CARBON DIOXIDE 36.3 mmol/L (21.0-32.0); CREATININE - SERUM 1.3 mg/dL (0.6-1.3); MAGNESIUM - SERUM 2.1 mg/dL (1.8-2.4); POTASSIUM - SERUM 3.4 mmol/L (3.5-5.1); PROTEIN - SERUM 6.4 g/dL (6.4-8.2)
--- NOTE | 2019-03-21 05:21 | NUR ---
CHECKED PT FSBS 128.
--- NOTE | 2019-03-21 05:25 | NUR ---
I have reviewed this patient and I concur with the Shift Assessment completed by the Licensed Practical Nurse today this shift.
--- NOTE | 2019-03-21 05:46 | NUR ---
PT'S POTASSIUM LEVEL 3.4. 40MEQ POTASSIUM GIVEN ORDERED.
[2019-03-21 10:09] VITALS: BP 108/68
--- NOTE | 2019-03-21 10:32 | NUR ---
PT IS LYING IN BED, WOKE EASILY TO MODERATE STIMULATION. SHE STATES SHE'S JUST FEELING VERY TIRED TODAY. PT KEPT FALLING ASLEEP I WAS GETTING HER MEDICATION READY, SHE REQUESTED TO BE LEFT ALONE AFTER GETTING MEDICATIONS SO SHE COULD REST MORE THIS MORNING. OBLIGED. CL IN REACH, SRX2, HOME CPAP ON AND FUNCTIONING WNL.
--- NOTE | 2019-03-21 15:35 | NUR ---
THIS HOSTED SERVICES ANALYST LOGGED IN SO ELANA GANDARA LPN CAN ADMINISTER MEDICATIONS. DUE TO POWER OUTAGE, SYSTEM SAYS THAT SHE IS LOGGED INTO 2 COMPUTERS AND WILL NOT LOG HER OUT. THIS HOSTED SERVICES ANALYST DID NOT ADMINISTER THE MEDICATIONS SCANNED AT THIS TIME.
--- NOTE | 2019-03-21 17:15 | NUR ---
I have reviewed this patient and I concur with the Shift Assessment completed by the Licensed Practical Nurse today this shift.
[2019-03-21 19:02] VITALS: BP 116/78
[2019-03-21 19:06] VITALS: BP 122/65
[2019-03-21 20:00] VITALS: BP 112/62
--- NOTE | 2019-03-21 20:11 | NUR ---
RECIEVED UP IN BED WITH HOB ELEVATED AND TRILOGY ON. DTR AT BEDSIDE. IV TO LFT AC SL.. GENERALIZED EDEMA AND FACE PUFFY. DENIES ANY NEEDSAT THIS TIME.
[2019-03-22] VITALS (31 sets, daily range): BP systolic 62–139; BP diastolic 37–94; BMI 37.4
[2019-03-22 04:37] LABS: BASOPHILS 0.1 % (0-2); EOSINOPHILS 1.3 % (0-7); HEMATOCRIT 38.9 % (36.0-48.0); IMMATURE GRANULOCYTES 3.1 % (0-5); MCH 24.8 pg (26.0-34.0); MCHC 28.3 g/dL (31.0-37.0); MEAN PLATELET VOLUME 9.7 fL (7.4-10.4); NEUTROPHILS 72.5 % (40-80); PLATELET COUNT 86 10x3/uL (130-400); RBC 4.43 10x6/uL (4.00-5.40); RDW 15.6 % (11.5-14.5)
[2019-03-22 04:45] LABS: MCV 87.8 fL (80.0-100.0); WBC 8.8 10x3/uL (4.8-10.8)
[2019-03-22 04:51] LABS: ALBUMIN 3.5 g/dL (3.4-5.0); BILIRUBIN - TOTAL 0.27 mg/dL (0.2-1.3); CALCIUM 8.4 mg/dL (8.5-10.1); CREATININE - SERUM 1.1 mg/dL (0.6-1.3); MAGNESIUM - SERUM 2.2 mg/dL (1.8-2.4); POTASSIUM - SERUM 3.7 mmol/L (3.5-5.1); PROTEIN - SERUM 7.3 g/dL (6.4-8.2)
[2019-03-22 04:57] LABS: ANION GAP 2.1 mmol/L (8-16); CARBON DIOXIDE 45.6 mmol/L (21.0-32.0)
[2019-03-22 05:24] LABS: PLATELET ESTIMATE DECREASED
--- NOTE | 2019-03-22 05:33 | NUR ---
I have reviewed this patient and I concur with the Shift Assessment completed by the Licensed Practical Nurse today this shift.
--- NOTE | 2019-03-22 06:08 | NUR ---
PT HARD TO AROUSE EARLIER THIS AM. USED STERNAL RUB AND RESPONDED. RT CALLED AND IN ROOM. O2 SAT 89% WITH TRILOGY ON. TRILOGY TAKEN OFF AND SAT JACE TO 94%. RECIEVED LAB RESULS OF CO2 AT 45.6. ABG ORDWER AND PH 7.1 CO2 135 ON [address] HUNT NOTIFIED WITH NEW ORDERS TO REMOVE HOME TRILOGY FROM ROOM START BIPAP AT 18/6 AND 40%FIO2.RT SET SETTING AND APPLIED TO PT. ALSO, NPO TIL DR. HUNT SEES PT THIS AM.
--- NOTE | 2019-03-22 06:33 | NUR ---
SPOKE WITH DR. HUNT 0630-PER PHONE COVERSATION. RN MONICA AND RADARMAN HEARD CONVERSATION. INTUBATE PATIENT WITH 7.5 TUBE, AC 500/22/+8 AND 60% FI02. NO SEDATION OR GASES TO BE DRAWN AT THIS TIME.
--- NOTE | 2019-03-22 07:00 | NUR ---
RAPID RESPONSE CALLED [facility], REC'D PATIENT VIA BED, LETHARGIC, NOT EASILY AROUSED, DOSE NOT FOLLOW COMMANDS, VSS, CO2 LEVEL HIGH PER ABG, O2 VIA NC AT 4L, HAS BEEN WEARING TRILOGY FOR 4 DAYS PER RT, PER ORDER INTUBATED BY ANESTHESIA MD ON ARRIVAL, ASSESSMENT COMPLETED PER ANDRADE, DAUGHTER CALLED TO BEDSIDE, STATUS UPDATE GIVEN, SHE HAS NOTIFIED THE YANELI WHO IS ON HIS WAY.
--- NOTE | 2019-03-22 07:14 | NUR ---
CALLED SPOUSE AND NO ANSWER. LEFT A MESSAGE.
--- NOTE | 2019-03-22 07:30 | NUR ---
RIGHT IJ CVL PLACE BY DR HIGGINBOTHAM WITHOUT DIFFICULTY DRESSING CDI, AND SWAB CAPS IN USE
--- NOTE | 2019-03-22 09:00 | NUR ---
DR HUNT HERE FOR EVAL, NEW ORDER GIVEN, CVP LINE INITIATED, READING 10
--- NOTE | 2019-03-22 10:05 | NUR ---
CHG BATH COMPLETED STOVALL PLACED PER ORDER
--- NOTE | 2019-03-22 11:00 | NUR ---
ASSESSMENT COMPLETED PER FLOWSHEET, NO ACUTE CHANGE FROM PREVIOUS, ALERT AND FOLLOWS COMMANDS, NO NEEDS AT THIS TIME
--- NOTE | 2019-03-22 15:00 | NUR ---
REPOSTIIONED TO RIGTHT SIDE WITH PILLOW PROPPED TO BACK, NO ACUTE CHANGE FROM PREVIOUS ASSESSMENT, VSS, ORAL CARE AND SUCTION COMPLETED, CALL LIGHT IN REACH
--- NOTE | 2019-03-22 17:30 | NUR ---
RESTING WITH EYES OPEN, NO SIGNS OF DISTRESS, VSS, REPOSITIONED TO BACK WITH HEELS FLOATED
--- NOTE | 2019-03-22 17:45 | NUR ---
CULTURES ORDERED FOR ELEVATED TEMP
--- NOTE | 2019-03-22 18:53 | NUR ---
BEDSIDE SHIFT REPORT GIVEN BY DEPARTING RN. PT LAYING IN BED ON VENT WITHOUT RESTRAINTS OR SEDATION. AAOX4. PERRLA. VENT SETTINGS ON FLOWSHEET. RT SUBCLAVIAN CVL SL'D. F/C DRAINING TO GRAVITY. ORAL TEMP 101.3 ORDERS FOR NPO, WILL CONTACT MD FOR FURTHER ORDERS. C/O DENERALIZED PAIN OF 06/24. ASSESSMENT COMPLETE. VSS. SAFETY MEASURES IN PLACE. CBIR.
--- NOTE | 2019-03-22 19:43 | NUR ---
DR. HUNT PAGED. ORDERS CLARIFIED. OG TUBE ORDERED TO BE PLACED.
--- NOTE | 2019-03-22 20:00 | NUR ---
PRN PAIN MED GIVEN. FAMILY AT BEDSIDE. ALL QUESTIONS ANSWERED.
--- NOTE | 2019-03-22 20:38 | NUR ---
OG TUBE PLACED. TOLERATED WELL. PRN TYLENOL GIVEN FOR ORAL TEMP OF 101.3
--- NOTE | 2019-03-22 21:40 | NUR ---
HS MEDS GIVEN. BLOOD CULTURES SENT.
--- NOTE | 2019-03-22 23:04 | NUR ---
BP CONTINUING TO DROP. ALL OTHER VSS. SCARLETT HINSON PHONED. ORDERS RECEIVED, VERIFIED, AND READ BACK. SEE MAR FOR DETAILS. STAT LABS SENT.
[2019-03-22 23:09] LABS: BASOPHILS 0.4 % (0-2); EOSINOPHILS 0.4 % (0-7); HEMATOCRIT 31.9 % (36.0-48.0); HEMOGLOBIN 9.3 g/dL (12-16); IMMATURE GRANULOCYTES 0.4 % (0-5); LYMPHOCYTES 34.9 % (15-50); MCH 25.1 pg (26.0-34.0); MCHC 29.2 g/dL (31.0-37.0); MCV 86.2 fL (80.0-100.0); MONOCYTES 9.5 % (2-11); NEUTROPHILS 54.4 % (40-80); PLATELET COUNT 113 10x3/uL (130-400); RDW 15.4 % (11.5-14.5); WBC 8.3 10x3/uL (4.8-10.8)
[2019-03-22 23:22] LABS: ANION GAP 6.5 mmol/L (8-16); CALCIUM 8.6 mg/dL (8.5-10.1); CARBON DIOXIDE 38.5 mmol/L (21.0-32.0); MAGNESIUM - SERUM 1.7 mg/dL (1.8-2.4)
[2019-03-22 23:24] LABS: CREATININE - SERUM 2.2 mg/dL (0.6-1.3)
--- NOTE | 2019-03-22 23:24 | NUR ---
CRITICAL PHOS OF 0.6 SCARLETT HINSON NOTIFIED. FOLLOW PROTOCOL. ELECTROLYTE PROTOCOL INITIATED FOR POTASSIUM OF 3.0, PHOS 0.6, AND MAG 1.7. SEE MAR FOR DETAILS.
[2019-03-22 23:27] LABS: PHOSPHOROUS 0.6 mg/dL (2.5-4.9)
--- NOTE | 2019-03-22 23:34 | NUR ---
DR. HUNT PAGED REGARDING O2 SAT 90% AND BP REMAINING LOW. ORDERS RECEIVED, VERIFIED, AND READ BACK. SEE MAR FOR DETAILS. ORDERED PT TO "NOT BE TURNED OR MOVED TOO MUCH".
[2019-03-23] VITALS (99 sets, daily range): BP systolic 60–221; BP diastolic 22–148
--- NOTE | 2019-03-23 01:10 | NUR ---
TITRATING LEVOPHED PER MD ORDER
--- NOTE | 2019-03-23 02:50 | NUR ---
REASSESSMENT COMPLETE. NO NEW CHANGES TO REPORT. LEVOPHED TITRATION PER MD ORDER TO CONTINUE. AAOX4. NO DISTRESS NOTED AT THIS TIME.
--- NOTE | 2019-03-23 04:54 | NUR ---
PRN MED GIVEN. TOLERATED WELL.
--- NOTE | 2019-03-23 07:00 | NUR ---
REC'D REPORT AND RESUMED CARE, SLEEPING AROUSABLEL TO VERBAL STIMULI, FOLLOWS COMMANDS, NO SEDATION IN USE, VSS, LEVAPHED IN USE AT 3 MCG, 5.6 CC/HR, STOVALL TO GRAVITY WITH CLEAR YELLOW DRAINAGE TO BAG, RIGHT IJ DRESSING BLOODY, PDRESSING CHANGE COMPLETED PER PROTOCAL, ASSESSMNENT COMPLETED PER FLOWSHEET
--- NOTE | 2019-03-23 08:11 | NUR ---
DR HUNT AT BEDSIDE, NEW ORDERS GIVEN, VENT SETTINGS CHANGE TO CPAP 500 12/58, WITH 60 % FIO2,
--- NOTE | 2019-03-23 10:35 | NUR ---
BLOOD DRAWN FROM CVL, GIVEN TO CLOUD CONSULTANT FOR TRANSPORT TO LAB AND EVAL
[2019-03-23 10:42] LABS: ALBUMIN 3.2 g/dL (3.4-5.0); BILIRUBIN - TOTAL 0.81 mg/dL (0.2-1.3); CALCIUM 7.8 mg/dL (8.5-10.1); CARBON DIOXIDE 36.2 mmol/L (21.0-32.0); CREATININE - SERUM 2.4 mg/dL (0.6-1.3); MAGNESIUM - SERUM 1.8 mg/dL (1.8-2.4); PROTEIN - SERUM 6.4 g/dL (6.4-8.2)
[2019-03-23 10:43] LABS: ANION GAP 7.5 mmol/L (8-16); PHOSPHOROUS 2.2 mg/dL (2.5-4.9); POTASSIUM - SERUM 3.7 mmol/L (3.5-5.1)
--- NOTE | 2019-03-23 11:02 | NUR ---
CALLED TO ROOM, WROTE ON CLIP BOARD, PAIN 5/10, FENTANYL 25 MCG GIVEN PER PRN ORDER, NO OTHER ACUTE CHANGES FROM PREVIOUS ASSESSMENT
--- NOTE | 2019-03-23 13:27 | NUR ---
PT BECAME APENIC AFTER PAIN MEDICATION. PT CHANGED BACK OVER TO CPAP, PT LASTED ABOUT 10 MINUTES AND THEN BECAME APENIC AND HAD TO BE CHANGED BACK OVER TO AC.
[2019-03-23 14:19] LABS: BASOPHILS 0.4 % (0-2); EOSINOPHILS 0.5 % (0-7); HEMATOCRIT 34.1 % (36.0-48.0); IMMATURE GRANULOCYTES 0.6 % (0-5); LYMPHOCYTES 44.1 % (15-50); MCH 25.2 pg (26.0-34.0); MCHC 29.3 g/dL (31.0-37.0); MCV 85.9 fL (80.0-100.0); MEAN PLATELET VOLUME 10.4 fL (7.4-10.4); MONOCYTES 8.7 % (2-11); NEUTROPHILS 45.7 % (40-80); PLATELET COUNT 123 10x3/uL (130-400); RBC 3.97 10x6/uL (4.00-5.40); RDW 15.7 % (11.5-14.5)
[2019-03-23 14:20] LABS: WBC 12.6 10x3/uL (4.8-10.8)
--- NOTE | 2019-03-23 14:49 | NUR ---
PER DR HUNT EXTUBATE 2-3L NASAL CANNULA. PLACE ON TRILOGY IF NEEDED, TRILOGY HS AND PRN DAYTIME
--- NOTE | 2019-03-23 14:55 | NUR ---
EXTUBATED TO 3 L NC, TOLERATED WITHOUT DIFFICULTY, ORAL CARE AND SUCTION COMPLETED, NO OTHER ACUTE CHANGE FROM PREVIOUS
--- NOTE | 2019-03-23 15:15 | NUR ---
STRIDER NOTED, O2 SAT IN 80'S, RACEMIC EPI GIVEN, BIPAP INITIATED AT 100% FIO2, PAGED DR HUNT
--- NOTE | 2019-03-23 15:30 | NUR ---
DR HUNT AT BEDSIDE, NEW ORDERS FOR DEXAMETHANSONE AND ABG'S,
--- NOTE | 2019-03-23 15:55 | NUR ---
REINTUBATED WITH 7.5 ETT AT THE 25 CM, GIVEN 100% FIO2,
--- NOTE | 2019-03-23 16:30 | NUR ---
PATIENT MORE AWAKE AND FOLLOWING COMMANDS, DAUGHTER AT BEDSIDE, STATUS UPDATED, NO NEEDS AT THIS TIME
--- NOTE | 2019-03-23 17:12 | NUR ---
PT EXTUBATED AT 1455. AFTER EXTUBATION PLACED PT ON 3L NASAL CANNULA, PT SATURATION 95% AND VERY HAPPY THE ETT IS OUT. ABOUT 10 MINUTES LATER I WAS CALLED INTO THE ROOM BY THE NURSE BECAUSE THE PT SAURATION WAS 85% AND STRIDOR WAS AUDIBLE. CALLED DR. HUTN HE SAID TO PLACE PT ON BIPAP AND GIVE RACEMIC EPI. PT PLACED ON BIPAP AND 2 RACEMIC EPI WAS GIVEN. PT BEGAN TO ZOË DOWN AND DR. HUNT WAS PAGED AGAIN. GOT AN ABG PER DR. HUNT AND INTUBATED PT AT 1555.
--- NOTE | 2019-03-23 17:29 | MORECARE ---
CASE MANAGEMENT DISCHARGE SUMMARY PATIENT: ELANA CHERRY UNIT: [id number] ADM DATE: 03/18/19 AGE: 69 : 48 SEX: F ROOM/BED: D.2311 AUTHOR: ELKINDOC PHYSICIAN: REFERRING PHYSICIAN: REY RUSS MD DATE OF SERVICE: 03/23/19 Discharge Plan Patient Name: ELANA CHERRY Facility: [facility]:[place] : 1950 Planned Disposition: Home Anticipated Discharge Date: Discharge Date: Expected LOS: Initial Reviewer: [email or web address] Initial Review Date: 03/20/2019 Generated: 03/23/19 6:29 pm Comments DCP- Discharge Planning Updated by [id number]: Natalie Shepherd on 03/23/19 4:[address] Patient Name: ELANA CHERRY Admission Status: ER Accout number: [id number] Admission Date: 03-18-2019 : 1950 Admission Diagnosis:SHORTNESS OF BREATH Attending: REY RUSS Current LOS: 5 Anticipated DC Date: Planned Disposition: Home Primary Insurance: MEDICARE A & B Discharge Planning Comments: MD IS PLANNING FOR PATIENT TO BE EXTUBATED TODAY. AFTER SHE IS EXTUBATED I WILL MEET WITH HER AND SEE IF SHE IS INTERESTED IN [facility] OR OTHER SERVICES. PLEASE ADD AN ORDER FOR PT TO ASSESS AFTER SHE IS EXTUBATED. PATIENT STILL ON THE VENT OF NOW . CM TO FOLLOW AND ASSIST. Painter [employer]: Natalie Shepherd DCP- Discharge Planning Updated by [id number]: Mana Padilla on 03/20/19 9:[address] Patient Name: ELANA CHERRY Admission Status: ER Accout number: [id number] Admission Date: 03-18-2019 : 1950 Admission Diagnosis: Attending: REY RUSS Current LOS: 2 Anticipated DC Date: Planned Disposition: Home Primary Insurance: MEDICARE A & B Discharge Planning Comments: CM AFTER OBTAINING VERBAL CONSENT COMPLETED INITIAL ASSESSMENT. PT WAS EDUCATED ON CM ROLE AND ON ALL SERVICES AVAILABLE LIKE DME, HOME HEALTH AND REHAB SERVICES. PT DENIES ANY NEEDS AT THIS TIME. LIVES WITH SPOUSE AND STATES HOME IS A SAFE DC PLAN. CM WILL CONT TO FOLLOW THRU STAY Painter Shipyard: Mana Padilla DCPIA - Discharge Planning Initial Assessment Updated by [id number]: Mana Padilla on 03/20/19 10:32 am * Is the patient Alert and Oriented? Yes * How many steps to enter\exit or inside your home? * PCP NONE * Pharmacy [facility] * Preadmission Environment Home with Family * ADLs Independent * Verbal permission to speak to the caregivers and representatives has been obtained from the patient. N/A * Additional services required to return to the preadmission environment? No * Can the patient safely return to the preadmission environment? Yes * Has this patient been hospitalized within the prior 30 days at any hospital? No Last DP export: 03/20/19 9:36 am Patient Name: ELANA CHERRY Page [id number] at 1729 All edits/amendments must be made on the electronic document DICTATION DATE: 03/23/191727 DEVELOPMENT ENG: LISS 03/23/191727 RPT#: [id number] DC DATE: STATUS: ADM IN [facility] [address] [place] [address] END OF REPORT
--- NOTE | 2019-03-23 19:01 | NUR ---
BEDSIDE SHIFT REPORT GIVEN BY DEPARTING RN. PT LAYING IN BED WITH EYES OPEN. AAOX4. PERRLA. RESTRAINTS REMAIN OFF AT THIS TIME. PT VERBALIZES UNDERSTANDING AND ACKNOWLEDGES SHE WILL NOT PULL AT LINES OR MEDICAL EQUIPMENT. RT SUBCLAVIAN CVL DRESSING INTACT, YET SOILED. CVL LINES PATENT AND INFUSING MD ORDERED MEDS. WILL CONTINUE TO TITRATE LEVOPHED DRIP PER MD ORDER. REPOSITIONS SELF. F/C NOTED AND DRAINING TO GRAVITY. ASSESSMENT COMPLETE. VSS. SAFETY MEASURES IN PLACE. CBIR.
--- NOTE | 2019-03-23 19:27 | NUR ---
FAMILY AND PREACHER ADMITTED TO UNIT BEFORE VISITATION TIME DUE TO SCHEDULING ISSUES. UPDATE GIVEN. ALL QUESTIONS ANSWERED.
--- NOTE | 2019-03-23 20:47 | NUR ---
CHG BATH GIVEN. LINENS CHANGED. GOWN CHANGED. TOLERATED WELL. ORAL CARE PROVIDED. DENIES ANY NEEDS AT THIS TIME.
--- NOTE | 2019-03-23 21:10 | NUR ---
MD HUNT PHONED TO GET PT UPDATE. UPDATE GIVEN. DENIED ANY NEED FOR OGT. ORDERED TO HOLD ALL PO MEDS, TO KEEP PT NPO. CHANGE ACCUCHECKS TO Q6H.
--- NOTE | 2019-03-23 21:46 | NUR ---
ALERTED NURSE USING CALL MANNING SYSTEM. PLACED ON BED ZARAGOZA. SMALL HARD BM NOTED. TOLERATED WELL.
--- NOTE | 2019-03-23 22:19 | NUR ---
ALERTED NURSE USING CALL MANNING. PLACED ON BED ZARAGOZA.
--- NOTE | 2019-03-23 23:49 | NUR ---
REASSESSMENT COMPLETE. NO CHANGES NOTED IN PT CONDITION. SEE FLOWSHEET FOR FULL DETAILS. DENIES ANY NEEDS AT THIS TIME. SAFETY MEASURES IN PLACE. CBIR.
[2019-03-24] VITALS (95 sets, daily range): BP systolic 92–147; BP diastolic 56–107
--- NOTE | 2019-03-24 02:04 | NUR ---
ALERTED NURSE USING CALL MANNING SYSTEM. PLACED ON BED ZARAGOZA. LARGE FORMED BM NOTED. TOLERATED WELL.
--- NOTE | 2019-03-24 02:35 | NUR ---
REASSESSMENT COMPLETE. NO NEW CHANGES NOTED IN PT CONDITION. VSS. REPOSITIONS SELF. SAFETY MEASURES IN PLACE. CBIR.
--- NOTE | 2019-03-24 03:07 | NUR ---
CVL DRESSING CHANGED PER HOSPITAL PROTOCOL USING STERILE TECHNIQUE. TOLERATED WELL.
[2019-03-24 05:17] LABS: BASOPHILS 0.1 % (0-2); EOSINOPHILS 0 % (0-7); HEMATOCRIT 30.1 % (36.0-48.0); HEMOGLOBIN 9.3 g/dL (12-16); IMMATURE GRANULOCYTES 0.3 % (0-5); LYMPHOCYTES 24.7 % (15-50); MCH 25.2 pg (26.0-34.0); MCHC 30.9 g/dL (31.0-37.0); MEAN PLATELET VOLUME 10.3 fL (7.4-10.4); MONOCYTES 4.1 % (2-11); NEUTROPHILS 70.8 % (40-80); PLATELET COUNT 122 10x3/uL (130-400); RBC 3.69 10x6/uL (4.00-5.40); WBC 14.3 10x3/uL (4.8-10.8)
[2019-03-24 05:27] LABS: MCV 81.6 fL (80.0-100.0)
[2019-03-24 06:14] LABS: ALBUMIN 3.2 g/dL (3.4-5.0); BILIRUBIN - TOTAL 0.74 mg/dL (0.2-1.3); CARBON DIOXIDE 31.8 mmol/L (21.0-32.0); CREATININE - SERUM 1.8 mg/dL (0.6-1.3); PROTEIN - SERUM 6.5 g/dL (6.4-8.2)
[2019-03-24 06:16] LABS: ANION GAP 11.2 mmol/L (8-16)
--- NOTE | 2019-03-24 07:00 | NUR ---
REC'D REPORT AND CARE RESUMED, ETT TO VENTILATION AND SECURED, AWAKE AND ALERT, USES WRITING PAD TO COMMUNICATE, C/O PAIN 03/24, IN BACK AND LEGS, WANTS TO GET REQUIP MEDICATION DISCUSSED AND EDUCATED ON MEDS THAT MAKE HER DROWSEY, PER MD ALL PO MEDDS ARE DEC'D FOR NOW, RIGHT IJ WITH CDI DRESSING, LEVAPHED INFUSING AT 2 MCG, STOVALL TO GRAVITY WITH CLEAR YELLOW DRAINAGE TO BAG, SELF REPOSITIONS, CALL LIGHT IN REACH, ASSESSMENT COMPLETE PER FLOWSHEET
--- NOTE | 2019-03-24 08:30 | NUR ---
CALLED TO ROOM, HAS HEADACHE 03/24, FENTANYL 25 MCG GIVEN PER MAR FLOWSHEET
--- NOTE | 2019-03-24 09:00 | NUR ---
MORNING MEDS INTITIATED PER FLOWSHEET
--- NOTE | 2019-03-24 09:00 | NUR ---
[facility] INITIATED
--- NOTE | 2019-03-24 10:04 | NUR ---
PER DR HUNT PLEASE DO NOT ORDER ANY OTHER SEDATIVE OR PAIN MEDS FOR THIS PATIENT. ANY ORDER FROM OTHER MD'S SHOULD BE VERIFIED BY HIM
--- NOTE | 2019-03-24 11:00 | NUR ---
RESTING WITH NO SIGNS OF DISTRESS, VSS, CONTINUES ON PRESSORS, NO ACUTE CHANGE FROM PREVIOUS ASSESSMENT
--- NOTE | 2019-03-24 12:43 | NUR ---
NUTRITION F/U PT BACK ON VENT, NO CURRENT NUTRITION SUPPORT. RECOMMEND NUTRITION SUPPORT IF UNABLE TO WEAN FROM VENT IN [address] FOLLOWING
--- NOTE | 2019-03-24 15:00 | NUR ---
ASSESSMENT COMPLETE PER FLOWSHEET, VSS, CONTINUES ON PRESSORS, NO ACUTE CHANGE FROM PREVIOUS
--- NOTE | 2019-03-24 16:30 | NUR ---
DAUGHTER JENNIFER AT BEDSIDE, STATUS UPDATED, VOICES NO NEEDS AT THIS TIME
--- NOTE | 2019-03-24 17:43 | NUR ---
COULD NOT STOP GAGING, VERSED 2MG IVP GIVEN PER FLOWSHEET
--- NOTE | 2019-03-24 17:54 | NUR ---
FSBS 171, 2 UNIT S REG INS PER S/S GIVEN LUQ ABD
--- NOTE | 2019-03-24 19:42 | NUR ---
BEDSIDE SHIFT REPORT GIVEN BY DEPARTING RN. PT LAYING ON SIDE WITH EYES CLOSED. AAOX4. PERRLA. VENTILATED WITHOUT RESTRAINTS. VSS. RT SUBCLAVIAN CVL PATENT AND INFUSING WITHOUT DIFFICULTY. F/C NOTED. ASSESSMENT COMPLETE. SEE FS FOR DETAILS. SAFETY MEASURES IN PLACE. CBIR.
--- NOTE | 2019-03-24 22:44 | NUR ---
HS MEDS GIVEN. TOLERATED WELL.
--- NOTE | 2019-03-24 23:09 | NUR ---
REASSESSMENT COMPLETE. NO NEW CHANGES NOTED IN PT CONDITION. VSS. SEE FLOWSHEET FOR DETAILS. CONTINUING TO TITRATE LEVOPHED PER MD ORDER.
[2019-03-25] VITALS (59 sets, daily range): BP systolic 99–143; BP diastolic 64–109
--- NOTE | 2019-03-25 01:40 | NUR ---
C/O JAW PAIN ASSOCIATED WITH VENT. PRN PAIN MED GIVEN.
--- NOTE | 2019-03-25 03:06 | NUR ---
REASSESSMENT COMPLETE. NO NEW CHANGES NOTED IN PT CONDITION. SEE FLOWSHEET FOR DETAILS. SAFETY MEASURES IN PLACE. CBIR.
[2019-03-25 05:09] LABS: BASOPHILS 0.1 % (0-2); EOSINOPHILS 0.1 % (0-7); HEMATOCRIT 29.9 % (36.0-48.0); HEMOGLOBIN 9.3 g/dL (12-16); IMMATURE GRANULOCYTES 0.3 % (0-5); LYMPHOCYTES 29.2 % (15-50); MCH 25.2 pg (26.0-34.0); MCHC 31.1 g/dL (31.0-37.0); MEAN PLATELET VOLUME 10.4 fL (7.4-10.4); MONOCYTES 3.4 % (2-11); NEUTROPHILS 66.9 % (40-80); PLATELET COUNT 124 10x3/uL (130-400); RBC 3.69 10x6/uL (4.00-5.40); RDW 16.1 % (11.5-14.5); WBC 11.8 10x3/uL (4.8-10.8)
[2019-03-25 05:43] LABS: ALBUMIN 3.3 g/dL (3.4-5.0); ANION GAP 9.5 mmol/L (8-16); BILIRUBIN - TOTAL 0.54 mg/dL (0.2-1.3); CALCIUM 8.3 mg/dL (8.5-10.1); CARBON DIOXIDE 30.4 mmol/L (21.0-32.0); CREATININE - SERUM 1.4 mg/dL (0.6-1.3); MAGNESIUM - SERUM 2.1 mg/dL (1.8-2.4); PHOSPHOROUS 2.7 mg/dL (2.5-4.9); PROTEIN - SERUM 6.5 g/dL (6.4-8.2)
[2019-03-25 05:51] LABS: POTASSIUM - SERUM 2.9 mmol/L (3.5-5.1)
--- NOTE | 2019-03-25 07:15 | NUR ---
REPORT RECEIVED. PT IS AWAKE AND ALERT ON VENT. 7.5 TUBE AND 25CM AT THE LIP. PT DOES NOT HAVE AN OGT PER DR ORDER. PT IS NPO. SHE HAS A RIGHT SUBCLAVIAN CENTRAL LINE WITH NS INFUSING AT 5ML/HR. SHE GETS HER BLOOD SUGARS CHECKED EVERY 6 HRS. PT IS ABLE TO REPOSITION HERSELF AND IS ABLE TO SHAKE HER HEAD YES AND NO TO QUESTIONS. PT DOES HAVE A STOVALL. HER LUNGS SOUND COARSE. VSS. WILL CONTINUE TO MONITOR.
--- NOTE | 2019-03-25 08:49 | NUR ---
DR HUNT IN TO CHECK IF PT STILL HAS SWELLING. PT DOES HAVE SWELLING AND WILL LEAVE INTUBATED NOW. PT COMPLAINS OF RLL. WILL ASK ATTENDING FOR MEDICATION TO HELP WITH THAT THROUGH IV.
--- NOTE | 2019-03-25 10:10 | NUR ---
PT ABLE TO COMMUNICATE NEEDS VIA WRITING ON PAPER. COMPLAINS OF RESTLESS LEG AND BEING UNCOMFORTABLE. GAVE DOSE OF VERSED PER ORDER TO TRY TO RELAX PT. WILL CONTINUE TO MONITOR.
--- NOTE | 2019-03-25 11:13 | NUR ---
STARTED PT ON PROPOFOL D/T PT BEING MISERABLE AND GAGGING ON VENT. DR HUNT PUT ORDER IN. BP AT 1110 WAS 148/94 WITH MAP OF 112. HR 62. WILL MONITOR.
--- NOTE | 2019-03-25 13:15 | NUR ---
PT ON PROPOFOL AND SEDATED. VSS. PT REPOSITIONED AND SUCTIONED. STOVALL CATH IN PLACE. IV IN RIGHT SUBC. WILL CONT TO MONITOR.
--- NOTE | 2019-03-25 15:29 | NUR ---
PT REPOSITIONED AND SUCTIONED. VSS. WILL CONTINUE TO MONITOR.
--- NOTE | 2019-03-25 17:30 | NUR ---
BS 145. NO INSULIN. PT SEDATED. REACTS TO ANY STIMULI. PT MAXED ON PROPOFOL. VSS. PT SUCTIONED. WILL CONTINUE TO MONITOR.
--- NOTE | 2019-03-25 19:00 | NUR ---
REPORT REC'D, PT CARE ASSUMED. ASSESSMENT COMPLETED PER FLOWSHEETS. PT SEDATED ON VENT, OPENS EYES WITH VOICES, FOLLOWS COMMANDS.SR ON CM. CPOC.
--- NOTE | 2019-03-25 21:00 | NUR ---
NO VISITORS AT THIS TIME. REPOSITIONED AND MOUTH CARE PROVIDED. PILLOWS IN USE FOR SUPPORT. SHEDULED MEDS GIVEN PER ORDER. VSS. CPOC.
--- NOTE | 2019-03-25 23:00 | NUR ---
REASSESSMENT COMPLETED. SEE FLOWSHEETS FOR ALL FINDINGS. PT SEDATED ON VENT RESTING QUIELTLY AT THIS TIME. VSS. NO ACUTE CHANGES NOTED. CPOC.
[2019-03-26] VITALS (35 sets, daily range): BP systolic 91–149; BP diastolic 60–109
--- NOTE | 2019-03-26 01:00 | NUR ---
PT SEDATED ON VENT RESTLESS, HONKING THE VENT, CONT SEDATION FOR PTS CONFORT ON VENT. REPOSITIONED AND MOUTH CARE PER VAP DONE. HOB UP. SIDE RAILS UP. CPOC.
--- NOTE | 2019-03-26 03:00 | NUR ---
REASSESSMENT COMPLETED PER FLOWSHEETS. NO ACUTE CHANGES NOTED IN PT'S STATUS. VSS. CPOC.
--- NOTE | 2019-03-26 04:00 | NUR ---
I&O COMPLETED TO CHART.
[2019-03-26 04:46] LABS: BASOPHILS 0.1 % (0-2); EOSINOPHILS 0 % (0-7); HEMATOCRIT 30.9 % (36.0-48.0); HEMOGLOBIN 9.9 g/dL (12-16); IMMATURE GRANULOCYTES 0.4 % (0-5); LYMPHOCYTES 42.8 % (15-50); MCH 25.5 pg (26.0-34.0); MCV 79.6 fL (80.0-100.0); MEAN PLATELET VOLUME 10.1 fL (7.4-10.4); NEUTROPHILS 52.7 % (40-80); PLATELET COUNT 131 10x3/uL (130-400); RBC 3.88 10x6/uL (4.00-5.40); RDW 16.1 % (11.5-14.5); WBC 10.6 10x3/uL (4.8-10.8)
[2019-03-26 05:12] LABS: ALBUMIN 3.3 g/dL (3.4-5.0); BILIRUBIN - TOTAL 0.58 mg/dL (0.2-1.3); CALCIUM 7.9 mg/dL (8.5-10.1); CARBON DIOXIDE 29.6 mmol/L (21.0-32.0); CREATININE - SERUM 1.3 mg/dL (0.6-1.3); MAGNESIUM - SERUM 2.1 mg/dL (1.8-2.4); PROTEIN - SERUM 6.5 g/dL (6.4-8.2)
[2019-03-26 05:13] LABS: ANION GAP 12.1 mmol/L (8-16); PHOSPHOROUS 4.1 mg/dL (2.5-4.9)
[2019-03-26 05:21] LABS: POTASSIUM - SERUM 2.7 mmol/L (3.5-5.1)
--- NOTE | 2019-03-26 07:10 | NUR ---
REPORT RECEIVED. PT SEDATED ON PROPOFOL AND ON VENT. SETTINGS PER RT. PT HAD CHG BATH ON TAPE WEAVER. PT GETS HER BLOOD SUGARS CHECKED Q6H. PT HAS NO OGT AND IS NOT TO HAVE ONE D/T SWELLING IN THROAT. SHE HAS A RIGHT IJ. SHE HAS A STOVALL. HER POTASSIUM THIS MORNING WAS 2.7. SHE CURRENTLY HAS POTASSIUM RIDERS INFUSING. HEAD TO TOE ASSESSMENT DONE. VSS. WILL CONTINUE TO MONITOR.
--- NOTE | 2019-03-26 07:47 | NUR ---
PT SEDATION TURNED OFF PER PULMONOLOGY TO DO CPAP TRIALS. WILL MONITOR PT.
--- NOTE | 2019-03-26 08:26 | NUR ---
Nutrition follow-up: Pt remains intubated; possible extubated today There is no NGT/OGT in place due to throat swelling. Labs reviewed Wt: 209# If unable to extubate today, recommend starting ProcalAmine PPN @ 75 ml/hr RDN following.
--- NOTE | 2019-03-26 09:15 | NUR ---
PT HAD LARGE BOWEL MOVEMENT ON BEDPAN. FORMED AND BROWN. PT CLEANED THEN REPOSITIONED IN PT.
--- NOTE | 2019-03-26 09:42 | NUR ---
RT IN TO SEE IF PT STILL HAS SWELLING. WILL MONITOR.
--- NOTE | 2019-03-26 10:08 | NUR ---
WILL NOT REMOVE ETT TODAY D/T SWELLING. PT IN TEARS UNCOMFORTABLE ON VENT. STARTED HER SEDATION (PROPOFOL) BACK. LAST RIDER OF POTASSIUM INFUSING. WILL CONTINUE TO MONITOR.
--- NOTE | 2019-03-26 12:00 | NUR ---
PT SEDATED. VSS. PT SUCTIONED. WILL CONTINUE TO MONITOR. AT BEDSIDE. UPDATED.
--- NOTE | 2019-03-26 12:20 | NUR ---
REHAB PRESCREENING Rehab referral received and chart reviewed. Rehab will continue to follow this patient as she progresses medically and with therapies. Thank you for this referral! Priya Rome, SSN/SSBN [employer] [facility]
--- NOTE | 2019-03-26 13:45 | NUR ---
PT'S FAMILY AT BEDSIDE. UPDATED. VSS.
--- NOTE | 2019-03-26 15:15 | NUR ---
PT'S POTASSIUM RECHECKED. 3.1. WILL REPLACE PER PROTOCOL.
--- NOTE | 2019-03-26 15:48 | NUR ---
PT HAD INCONTINENT BOWEL MOVEMENT. CHG BATH GIVEN. LINENS CHANGED. RT IN TO CHANGE VENT SETTINGS. WILL CONTINUE TO MONITOR.
--- NOTE | 2019-03-26 17:45 | NUR ---
PT REPOSITIONED AND SUCTIONED. VSS. PT SEDATED. OPENS EYES TO VERY LITTLE STIMULUS. NO NEW CHANGES AT THIS TIME. WILL CONTINUE TO MONITOR.
[2019-03-27] VITALS (24 sets, daily range): BP systolic 90–137; BP diastolic 50–95; Ht 165.1 cm; Wt 93.8 kg
[2019-03-27 06:43] LABS: BASOPHILS 0.1 % (0-2); EOSINOPHILS 0.1 % (0-7); HEMATOCRIT 31.7 % (36.0-48.0); HEMOGLOBIN 10.1 g/dL (12-16); IMMATURE GRANULOCYTES 0.2 % (0-5); LYMPHOCYTES 47.6 % (15-50); MCH 25.8 pg (26.0-34.0); MCHC 31.9 g/dL (31.0-37.0); MCV 81.1 fL (80.0-100.0); MEAN PLATELET VOLUME 9.9 fL (7.4-10.4); PLATELET COUNT 152 10x3/uL (130-400); RBC 3.91 10x6/uL (4.00-5.40); RDW 16.3 % (11.5-14.5); WBC 8.6 10x3/uL (4.8-10.8)
[2019-03-27 07:04] LABS: ALBUMIN 3.2 g/dL (3.4-5.0); ANION GAP 10.8 mmol/L (8-16); BILIRUBIN - TOTAL 0.42 mg/dL (0.2-1.3); CALCIUM 7.8 mg/dL (8.5-10.1); CARBON DIOXIDE 29.6 mmol/L (21.0-32.0); CREATININE - SERUM 1.4 mg/dL (0.6-1.3); POTASSIUM - SERUM 3.4 mmol/L (3.5-5.1); PROTEIN - SERUM 6.3 g/dL (6.4-8.2)
--- NOTE | 2019-03-27 07:35 | NUR ---
AWAKES EASILY TO VERBAL STIMULI SKIN WARM AND DRY. ETT SECURE TO VENT. DIPIRVAN TURNED DOWN TO 35 MCG/KG/MIN. TO TRY CPAP TRAIL. OBEYS COMMANDS. NODES HEAD TO YES AND NO QUESTIONS. ANSWERS APPRIOPIATELY. IV RIJ DRESSING INTACT NO REDNESS OR DRAINAGE INFUSING WITH NS AT 30 ML HOUR, DIPRIVAN WAS AT 75 MCG/KG/MIN. STOVALL CATH PATENT DRAINAGE CLOUDY GREEN COLOR. NO DISTRESS.
--- NOTE | 2019-03-27 09:22 | NUR ---
ON BEDPAN, SMALL LIQUID STOOL. COMPLETE BED BATH GIVEN WITH HIBCLENS AND LINEN CHANGE. PATIENT TOLERATE WELL AWAKE ALERT. ASSIST WITH TURNING SELF. AT BEDSIDE UPDATE GIVEN. PATIENT COMPLAINTS OF ITCHING BETWEEN HER LEGS. SOME REDNESS NOTED. BUTTPASTE APPLIED. STOVALL CATH CARE DONE. RESP DEEP AND REGULAR. TOLERATING CPAP WELL.
--- NOTE | 2019-03-27 10:30 | NUR ---
DR. PACHECO HERE ORDERS NOTED. PATIENT TOLERATING CPAP WELL. STILL ON DIPIRVAN AT 37 MCG/KG/MIN. AWAKES EASILY. OBEYS COMMANDS WRITTING NOTES TO COMMUNICATE. OG INSERT WITHOUT DIFFICULTY. IMMEDIATE RETURN OF BROWN LIQUID. AUDIBLE AIR HEARD IN ABD. PATIENT TOLERATED WELL.
--- NOTE | 2019-03-27 12:00 | NUR ---
TOLERATING CPAP WELL. NO DISTRESS.
--- NOTE | 2019-03-27 14:30 | NUR ---
DR. LEHMAN HERE ORDERS RECEIVED
--- NOTE | 2019-03-27 19:00 | NUR ---
REPORT RECEIVED. INITIAL ASSESSMENT COMPLETE. PT AWAKE CALM AND NODS HEAD APPROPRIATELY TO QUESTIONS FOLLOWS COMMANDS. PT CONSTANTLY MOVING LEGS ASKED IF SHE HAD RESTLESS LEG SYNDROME SHE NODS HEAD YES INFORMED HER HER MEDICINE REQUIP WAS ORDERED AT HS. SHE NODS HEAD YES WHEN ASKED IF SHE TAKES REQUIP AT HOME. ORALLY INTUBATED ON VENT SIMV MODE SEE RESP NOTES. DIPRIVAN FOR LIGHT SEDATION SEE FLOWSHEETS FOR ASSESSMENT REPOSTIONED FOR COMFORT. CM READING SR ALARMS ON AND AUDIBLE
--- NOTE | 2019-03-27 23:00 | NUR ---
REASSESSMENT MADE. PT NODS HEAD YES THAT THE REQUIP HELPED WITH RESTLESS LEGS SHE ALSO HAS NOT CONSTANTLY BEEN MOVING LEGS EARLIER. CPOC VSS
[2019-03-28] VITALS (22 sets, daily range): BP systolic 85–126; BP diastolic 45–81
--- NOTE | 2019-03-28 00:30 | NUR ---
PT HAD DARK BROWN BM SAMPLE SENT TO LAB FOR OCCULT BLOOD ORDER NOTED FROM 03/18/19. PARTIAL BATH AND LINEN CHANGE
--- NOTE | 2019-03-28 01:30 | NUR ---
PT HAD LARGE LIQUID DARK BROWN STOOL COMPLETE BATH AND LINEN CHANGE WHILE ROLLING PT TO LEFT SIDE TO CHANGE SOILED LINENS PTS O2 SATS DROPPED TO 70'S. 100% O2 FOR 2 MINUTES ENGAGED ON VENT. O2 SATS NOT COMING UP SO 100% BAG AND SUCTIONED MODERATE AMOUNT CLEAR SECRETIONS VIA ETT AND ORALLY. PT 02 SAT GRADUALLY INCREASED TO 90'S. IT DID TAKE SEVERAL MINUTES FOR SATS TO INCREASE TO 90'S WILL CLOSELY MONITOR.
--- NOTE | 2019-03-28 02:00 | NUR ---
PTS O2 SAT 94%.
--- NOTE | 2019-03-28 03:00 | NUR ---
REASSESSMENT MADE PT HAD BM PARTIAL BATH AND LINEN CHANGE DENIES DISTRESS AT THIS TIME CPOC REPOSITIONED FOR COMFORT
--- NOTE | 2019-03-28 04:00 | NUR ---
PT RESTING EYES CLOSED VSS AT THIS TIME O2 SAT 96% NO DISTRESS NOTED CPOC
--- NOTE | 2019-03-28 06:00 | NUR ---
PT BACK TO MOVING LEGS CONSTANTLY BACK AND FORTH NODS HEAD YES TO RESTLESS LEG SYMPTOMS BACK. INFORMED PT WOULD PASS ON IN REPORT THAT SHE DID GET RELIEF FROM THE 2 MG REQUIP MAYBE SHE COULD HAVE INCREASED DOSE TIMES.
[2019-03-28 07:04] LABS: BASOPHILS 0.1 % (0-2); EOSINOPHILS 1.6 % (0-7); HEMATOCRIT 32.8 % (36.0-48.0); HEMOGLOBIN 10.4 g/dL (12-16); IMMATURE GRANULOCYTES 0.4 % (0-5); MCHC 31.7 g/dL (31.0-37.0); MONOCYTES 4.9 % (2-11); PLATELET COUNT 172 10x3/uL (130-400); RDW 17.2 % (11.5-14.5)
[2019-03-28 07:12] LABS: WBC 13.4 10x3/uL (4.8-10.8)
[2019-03-28 07:17] LABS: BILIRUBIN - TOTAL 0.45 mg/dL (0.2-1.3); CALCIUM 7.3 mg/dL (8.5-10.1); CARBON DIOXIDE 26.2 mmol/L (21.0-32.0); CREATININE - SERUM 1.3 mg/dL (0.6-1.3)
[2019-03-28 07:26] LABS: ANION GAP 14.7 mmol/L (8-16)
[2019-03-28 07:27] LABS: POTASSIUM - SERUM 2.9 mmol/L (3.5-5.1)
--- NOTE | 2019-03-28 07:30 | NUR ---
AWAKE OBEYING COMMANDS, WRITES NOTED TO COMMUNICATE NEEDS. RESTLESS ALL OVER BED, CAN NOT KEEP LEGS STILL. SMALL DARK BROWN STOOL. PERDICARE DONE STOVALL CATH CARE DONE, CLEAN LINEN APPLIED. REPOSITIONED RIJ INFUSING WITH DIPRIVAN AT 50 MCG/KG/MIN. NS AT 30 ML HOUR. OG INFUSING WITH PULMOCARE AT 45 ML HOUR. NO RESIDUAL. MEDS GIVEN EARLY DUE TO RESTLESS LEGS. STOVALL CATH PATENT.
--- NOTE | 2019-03-28 08:25 | NUR ---
RESTING COMFORTABLY ON LEFT SIDE. DIPRIVAN AT 45 MCG/KG/MIN. ON CPAP ON VENT. TOLERATING WELL AT THIS TIME
--- NOTE | 2019-03-28 09:57 | NUR ---
LARGE DARK BROWN STOOL. ETTA CARE AND STOVALL DONE. REPOSITIONED. TOLERATED WELL
--- NOTE | 2019-03-28 12:00 | NUR ---
LARGE DARK BROWN STOOL. PERICARE AND STOVALL CARE DONE, PATIENT TOLERATED WELL
--- NOTE | 2019-03-28 13:00 | NUR ---
ANDREEA HERE UPDATE GIVEN. DR. LEHMAN AND DR. RUSS HERE NEW ORDERS RECEIVED.
--- NOTE | 2019-03-28 13:27 | NUR ---
IMITREX SQ GIVENPER PATIENT REQUEST FOR HEAD ACHE. RESTING COMFORTABLY AT BEDSIDE.
--- NOTE | 2019-03-28 15:00 | NUR ---
TOLERATING CPAP WELL NO DISTRESS. SUCTION ORALL AND ETT.
--- NOTE | 2019-03-28 17:00 | NUR ---
TOLERATING CPAP WELL. NO DISTRESS. RESTLESS LEGS . TALKED DR. RUSS. PATIENT IS ON MAX MEDS FOR THIS.
--- NOTE | 2019-03-28 18:09 | NUR ---
REPOSITIONED. RESTLESS LEGS. DENIES PAIN. HEADACHE RELIEVED. PLACED BACK ON SIMV DIPIRVAN INCREASED TO 45 MCG/KG/MIN. SUCTION THICK WHITE SPUTUM PER ETT, THICK CLEAR SPUTUM FROM MOUTH
--- NOTE | 2019-03-28 23:00 | NUR ---
.RECEIVED PATIENT AWAKE AND ALERT. MONITORS CONNECTED TO PATIENT WITH ALARMS SET. VSS. ETT INTACT/SECURE/PATENT. NO ACUTE DISTRESS OBSERVED. CALL LIGHT IN REACH. HOB UP DEGREES
[2019-03-29] VITALS (24 sets, daily range): BP systolic 87–129; BP diastolic 49–96
--- NOTE | 2019-03-29 01:00 | NUR ---
AWAKE AND ALERT.VSS
--- NOTE | 2019-03-29 05:00 | NUR ---
AWAKE AND ALERT. VSS. NO ACUTE DISRESS OBSERVED
[2019-03-29 05:38] LABS: BASOPHILS 0.2 % (0-2); EOSINOPHILS 1.1 % (0-7); HEMATOCRIT 33.8 % (36.0-48.0); HEMOGLOBIN 10.9 g/dL (12-16); IMMATURE GRANULOCYTES 0.6 % (0-5); LYMPHOCYTES 34.1 % (15-50); MCH 26.4 pg (26.0-34.0); MCHC 32.2 g/dL (31.0-37.0); MCV 81.8 fL (80.0-100.0); MEAN PLATELET VOLUME 9.9 fL (7.4-10.4); MONOCYTES 3.4 % (2-11); NEUTROPHILS 60.6 % (40-80); PLATELET COUNT 180 10x3/uL (130-400); RBC 4.13 10x6/uL (4.00-5.40); RDW 17.7 % (11.5-14.5)
[2019-03-29 05:39] LABS: WBC 17.4 10x3/uL (4.8-10.8)
[2019-03-29 05:51] LABS: ALBUMIN 3.2 g/dL (3.4-5.0); ANION GAP 15.5 mmol/L (8-16); BILIRUBIN - TOTAL 0.48 mg/dL (0.2-1.3); CALCIUM 8.1 mg/dL (8.5-10.1); CREATININE - SERUM 1.3 mg/dL (0.6-1.3); POTASSIUM - SERUM 3.5 mmol/L (3.5-5.1); PROTEIN - SERUM 6.4 g/dL (6.4-8.2)
--- NOTE | 2019-03-29 07:15 | NUR ---
REPORT RECEIVED. PT ON VENT. SETTINGS PER RT. PT IS ON 50MCG OF PROPOFOL. PT IS NOT COMPLETELY SEDATED. SHE AROUSES VERY EASILY. PT RECOGNIZED ME FROM TAKING CARE OF HER LAST WEEK. ABLE TO FOLLOW COMMANDS. PT HAS OGT WITH PULMOCARE INFUSING AT 45ML/HR WHICH IS GOAL AND A 25ML/HR FLUSH. PT HAS A RIGHT IJ AND HAS A STOVALL. HER VSS. WILL CONTINUE TO MONITOR.
--- NOTE | 2019-03-29 09:15 | NUR ---
PT STILL COMPLAINING OF HEADACHE. TYLENOL GIVEN WITH MORNING MEDS. EXTRA WATER GIVEN THROUGH OGT. VSS. WILL CONTINUE TO MONITOR.
--- NOTE | 2019-03-29 09:24 | NUR ---
NUTRITION F/U PT REMAINS SEDATED ON VENT. DIPRIVAN @ 30 CC/HR PROVIDING ~800 KCAL PER DAY. PULMOCARE @ 45 CC/HR PROVIDING ~ 1620 KCAL PER DAY FOR TOTAL 2412 KCAL PER DAY. MAY NEED TO DECREASE TUBE FEED RATE IF UNABLE TO REDUCE DIPRIVAN. RD FOLLOWING
--- NOTE | 2019-03-29 11:15 | NUR ---
PT STILL COMPLAINS OF HEADACHE. WILL GIVE DOSE OF IMITREX. VSS. WILL CONTINUE TO MONITOR.
--- NOTE | 2019-03-29 13:43 | NUR ---
PT RESTING QUIETLY AT THIS TIME. DAUGHTER WAS HERE VISITTING ABOUT 30 MINUTES AGO. VSS. WILL CONTINUE TO MONITOR.
--- NOTE | 2019-03-29 14:44 | NUR ---
ASKED PT IF HER HEAD HAS STOPPED HURTING SOME AND SHE SHOOK HER HEAD YES. WILL CONTINUE TO MONITOR.
--- NOTE | 2019-03-29 16:32 | NUR ---
PT AGAIN COMPLAINS OF HEAD HURTING. WILL GIVE TYLENOL. HAS HAD THE 12MG OF IMITREX ALLOWED WITHIN A DAY (PER ORDER). WILL CONTINUE TO MONITOR.
--- NOTE | 2019-03-29 17:50 | NUR ---
SPOKE WITH SCARLETT GOMEZ, REGARDING PT'S ANTIDEPRESSANTS AND HEADACHES. CANNOT CRUSH CYMBALTA. DOES NOT WANT TO ORDER ANY SEDATING MEDICATION WITHOUT PULMONARY CONSENT. GAVE PT TYLENOL. SHE IS RESTING QUIETLY AT THIS TIME. VSS. WILL CONTINUE TO MONITOR.
[2019-03-30] VITALS (24 sets, daily range): BP systolic 84–145; BP diastolic 46–81
[2019-03-30 05:01] LABS: BASOPHILS 0.1 % (0-2); EOSINOPHILS 1.3 % (0-7); HEMATOCRIT 33.5 % (36.0-48.0); HEMOGLOBIN 10.5 g/dL (12-16); IMMATURE GRANULOCYTES 0.5 % (0-5); MCH 25.5 pg (26.0-34.0); MCHC 31.3 g/dL (31.0-37.0); MCV 81.3 fL (80.0-100.0); MEAN PLATELET VOLUME 10.1 fL (7.4-10.4); MONOCYTES 4.2 % (2-11); NEUTROPHILS 63.9 % (40-80); PLATELET COUNT 166 10x3/uL (130-400); RBC 4.12 10x6/uL (4.00-5.40); RDW 17.5 % (11.5-14.5); WBC 16.7 10x3/uL (4.8-10.8)
[2019-03-30 05:49] LABS: ALBUMIN 3.1 g/dL (3.4-5.0); ANION GAP 14.2 mmol/L (8-16); BILIRUBIN - TOTAL 0.28 mg/dL (0.2-1.3); CALCIUM 8.4 mg/dL (8.5-10.1); CARBON DIOXIDE 26.6 mmol/L (21.0-32.0); CREATININE - SERUM 1.3 mg/dL (0.6-1.3); MAGNESIUM - SERUM 2.2 mg/dL (1.8-2.4); PHOSPHOROUS 4.6 mg/dL (2.5-4.9); POTASSIUM - SERUM 3.8 mmol/L (3.5-5.1); PROTEIN - SERUM 6.3 g/dL (6.4-8.2)
--- NOTE | 2019-03-30 07:30 | NUR ---
REPORT RECEIVED. PT'S SEDATION TURNED DOWN TO 20MCG D/T LOW BP. PT IS AWAKE AND ORIENTED. ORAL CARE DONE. PT SUCTIONED. PT REPOSITIONS HERSELF. STOVALL CATHETER IN PLACE. HAS PULMOCARE INFUSING AT 40ML/HR WITH 25 FLUSH HOURLY. WILL GIVE PT BATH LATER IN THE MORNING. HEAD TO TOE ASSESSMENT COMPLETED. STILL ON VENT. SETTINGS PER RT. WILL CONTINUE TO MONITOR.
--- NOTE | 2019-03-30 09:15 | NUR ---
PT'S BEDSIDE. PT ALERT. VSS. ASKED ABOUT HER REQUIP. GIVING PER MORNING MEDS. VSS. WILL CONTINUE TO MONITOR.
--- NOTE | 2019-03-30 09:25 | NUR ---
NUTRITION F//U CHART REVIEWED, PT VISIT. FAMILY AT BEDSIDE. REMAINS ON VENT WITH PULMOCARE AT 45CC/HR. DIPRIVAN RATE AT 12 CC/HR. WILL CONTINUE TO PROVIDE PULMOCARE AND MONITOR PT PROGRESS. RD FOLLOWING
--- NOTE | 2019-03-30 11:15 | NUR ---
PT RESTING. SUCTIONED. ORAL CARE DONE. PT REPOSITIONS HERSELF. VSS. WILL CONTINUE TO MONITOR.
--- NOTE | 2019-03-30 13:45 | NUR ---
PT GIVEN CHG BATH. LINENS CHANGED. PT ABLE TO TURN AND PARTICIPATE. TOLERATED WELL. VSS.
--- NOTE | 2019-03-30 15:29 | NUR ---
PT UPSET SHE HASN'T BEEN TOLD ANYTHING ABOUT THE VENT AND WHEN/IF THE TUBE WILL BE PULLED. ASKED PT IF SHE HAD THE LEAK TEST DONE TODAY. SHE SHOOK HER HEAD NO. SPOKE WITH RT, BRII. BRII STATED THAT HER STUDENT DID ONE AND THAT NO AIR WAS HEARD. SHE STATED THAT SHE WOULD DO ANOTHER ONE FOR THE PT. STATED DR BONILLA'S PLAN WAS TO BRONCH PT TOMORROW. WILL CONTINUE TO MONITOR.
--- NOTE | 2019-03-30 17:15 | NUR ---
TYLENOL WITH CODEINE GIVEN FOR HEADACHE. PT NODS "YES" THAT IT HAS HELPED ALLEVIATE THE PAIN. VSS. PT SUCTIONED. GOWN CHANGED. FACE CLEANED. NO OTHER NEEDS AT THIS TIME.
--- NOTE | 2019-03-30 18:56 | MORECARE ---
CASE MANAGEMENT DISCHARGE SUMMARY PATIENT: ELANA ARNOLD UNIT: [id number] ADM DATE: 03/18/19 AGE: 69 : 49 SEX: F ROOM/BED: D.2311 AUTHOR: ELKIN,DOC PHYSICIAN: REFERRING PHYSICIAN: REY RUSS MD DATE OF SERVICE: 03/30/19 Discharge Plan Patient Name: ELANA ARNOLD Facility: [facility]:[place] : 1950 Planned Disposition: Home Anticipated Discharge Date: Discharge Date: Expected LOS: Initial Reviewer: [id number] Initial Review Date: 03/20/2019 Generated: 03/30/19 7:55 pm Comments DCP- Discharge Planning Updated by [id number]: Georgia Mccain on 03/30/19 5:[address] CM received call from patient daughter Genoveva Arnold [phone] requesting for patient to be transferred to [facility] in [place]. Genoveva stated that patient has was in [facility] [place] with this same condition in the past and is wanting to transfer there. CM stated that she would check on this and get back intouch with her. CM will continue to follow and assist as needed with discharge planning / needs. DCP- Discharge Planning Updated by [id number]: Natalie Shepherd on 03/23/19 4:[address] Patient Name: ELANA ARNOLD Admission Status: ER Accout number: [id number] Admission Date: 03-18-2019 : 1950 Admission Diagnosis:SHORTNESS OF BREATH Attending: REY RUSS Current LOS: 5 Anticipated DC Date: Planned Disposition: Home Primary Insurance: MEDICARE A & B Discharge Planning Comments: MD IS PLANNING FOR PATIENT TO BE EXTUBATED TODAY. AFTER SHE IS EXTUBATED I WILL MEET WITH HER AND SEE IF SHE IS INTERESTED IN [facility] OR OTHER SERVICES. PLEASE ADD AN ORDER FOR PT TO ASSESS AFTER SHE IS EXTUBATED. PATIENT STILL ON THE VENT OF NOW . CM TO FOLLOW AND ASSIST. Air Box Tester: Natalie Shepherd DCP- Discharge Planning Updated by [id number]: Mana Padilla on 03/20/19 9:[address] Patient Name: ELANA ARNOLD Admission Status: ER Accout number: [id number] Admission Date: 03-18-2019 : 1950 Admission Diagnosis: Attending: REY RUSS Current LOS: 2 Anticipated DC Date: Planned Disposition: Home Primary Insurance: MEDICARE A & B Discharge Planning Comments: CM AFTER OBTAINING VERBAL CONSENT COMPLETED INITIAL ASSESSMENT. PT WAS EDUCATED ON CM ROLE AND ON ALL SERVICES AVAILABLE LIKE DME, HOME HEALTH AND REHAB SERVICES. PT DENIES ANY NEEDS AT THIS TIME. LIVES WITH SPOUSE AND STATES HOME IS A SAFE DC PLAN. CM WILL CONT TO FOLLOW THRU STAY Air Box Tester: Mana Padilla DCPIA - Discharge Planning Initial Assessment Updated by [email or web address]: Mana Padilla on 03/20/19 10:32 am * Is the patient Alert and Oriented? Yes * How many steps to enter\exit or inside your home? * PCP NONE * Pharmacy [facility] * Preadmission Environment Home with Family * ADLs Independent * Verbal permission to speak to the caregivers and representatives has been obtained from the patient. N/A * Additional services required to return to the preadmission environment? No * Can the patient safely return to the preadmission environment? Yes * Has this patient been hospitalized within the prior 30 days at any hospital? No Last DP export: 03/23/19 4:29 pm Patient Name: ELANA ARNOLD Page [id number] at 1856 All edits/amendments must be made on the electronic document DICTATION DATE: 03/30/191854 FOOD CART ATTENDANT: LISS 03/30/191854 RPT#: [id number] DC DATE: STATUS: ADM IN [facility] [address] [place] [address] END OF REPORT
--- NOTE | 2019-03-30 19:00 | NUR ---
REPORT RECEIVED. RECEIVED PATINT IN BED. INTUBATED. AWAKE AND ALERT. COMMUNICATING WITH NOTEPAD.HOB UP 30 DEGREES. MONITORS CONNECETED TO PATIENT WITH ALARMS SET. VSS . SHIFT ASSESSEMENT COMPLETED PER FLOW SHEET WITH NO ACUTE DISTRESS OBSERVED. CALL LIGHT IN REACH AND ABLE TO USE TO MAKE NEEDS KNOWN
--- NOTE | 2019-03-30 21:00 | NUR ---
AWAKE AND ALERT. VSS
--- NOTE | 2019-03-30 23:00 | NUR ---
REASSESSMENT COMPLETED PER FLOW SHEET WITH NO CHANGES OR ACUTE DISTRESS OBSERVED. VSS
[2019-03-31] VITALS (25 sets, daily range): BP systolic 55–141; BP diastolic 33–82
--- NOTE | 2019-03-31 01:00 | NUR ---
AWAKE AND ALERT. VSS.
[2019-03-31 05:13] LABS: BASOPHILS 0.1 % (0-2); EOSINOPHILS 1.2 % (0-7); HEMOGLOBIN 10.4 g/dL (12-16); IMMATURE GRANULOCYTES 0.5 % (0-5); MCH 25.9 pg (26.0-34.0); MCHC 31.5 g/dL (31.0-37.0); MCV 82.3 fL (80.0-100.0); MEAN PLATELET VOLUME 10.3 fL (7.4-10.4); MONOCYTES 5.3 % (2-11); NEUTROPHILS 61.9 % (40-80); PLATELET COUNT 183 10x3/uL (130-400); RBC 4.01 10x6/uL (4.00-5.40); RDW 17.8 % (11.5-14.5); WBC 12.7 10x3/uL (4.8-10.8)
[2019-03-31 05:35] LABS: ANION GAP 11.3 mmol/L (8-16); BILIRUBIN - TOTAL 0.23 mg/dL (0.2-1.3); CALCIUM 8.2 mg/dL (8.5-10.1); CARBON DIOXIDE 26.4 mmol/L (21.0-32.0); CREATININE - SERUM 1.2 mg/dL (0.6-1.3); POTASSIUM - SERUM 3.7 mmol/L (3.5-5.1); PROTEIN - SERUM 6.3 g/dL (6.4-8.2)
--- NOTE | 2019-03-31 09:31 | NUR ---
0700 AWAKE ALERT WHILE ON VENT AT SIMV 14 AT 40% ASSESSMENT COMPLETE PULMOCAR3 OFF FOR POSSOBLE TRACH TODAY PROPOFOL 20 MCG/MN INFUSING TO LEFT CENTRAL IJ. SITE SATISFACTORY PATIENT CALM AND COMPLIENT WITH CARE.
--- NOTE | 2019-03-31 09:34 | NUR ---
0745 PROPOFOL STOPPED PER DESTINY HOFFMAN CLASSER FOR CPAP TRIAL TOLERATING WELL
--- NOTE | 2019-03-31 09:35 | NUR ---
0930 OGT PLACEMENT VERIFIED WITH 10 CC AIR BOLUS PO MEDS CRUSHED AND PLACED DOWN OGT AND CLAMPED
--- NOTE | 2019-03-31 09:38 | NUR ---
0915 NOTIFIED [facility], OF VANC TROUGH OF 17.3. HE GAVE HIS APPROVAL TO INITIATE VANCOMYCIN 1 GRAM IV INFUSION
--- NOTE | 2019-03-31 09:40 | NUR ---
0963 SPOUSE AND DAUGHTER AT BEDSIDE UPDATE PROVIDED DTR ASKED IF PATIENT CAN BE TRANSFERRED TO [facility] REASON GIVEN WAS THAT PATIENT HAD RECENTLY BEEN A PATIENT THERE FOR SEVERAL WEEKS UNDER DR COURTNEY, SUIT MAKER AND BELIEVED THAT HE WAS MORE FAMILIAR WITH PATIENT
--- NOTE | 2019-03-31 09:57 | NUR ---
NUTRITION F/U PT REMAINS ON VENT, TUBE FEEDS OFF FOR POSSIBLE EXTUBATION THIS AM. WILL CONTINUE TO MONITOR PT PROGRESS. PROVIDE TUBE FEEDS IF NEEDED. RD FOLLOWING
--- NOTE | 2019-03-31 11:49 | MORECARE ---
CASE MANAGEMENT DISCHARGE SUMMARY PATIENT: ELANA ARNOLD UNIT: [id number] ADM DATE: 03/18/19 AGE: 69 : 49 SEX: F ROOM/BED: D.2311 AUTHOR: ELKIN,DOC PHYSICIAN: REFERRING PHYSICIAN: REY RUSS MD DATE OF SERVICE: 03/31/19 Discharge Plan Patient Name: ELANA ARNOLD Facility: [facility]:[place] : 1950 Planned Disposition: Home Anticipated Discharge Date: Discharge Date: Expected LOS: Initial Reviewer: [email or web address] Initial Review Date: 03/20/2019 Generated: 03/31/19 12:48 pm Comments DCP- Discharge Planning Updated by [id number]: Georgia Mccain on 03/31/19 10:[address] CM received call from patient daughter Genoveva Arnold [phone] requesting for patient to be transferred to [facility] in [place]. Genoveva stated that patient has was in [facility] [place] with this same condition in the past and is wanting to transfer there. Daughter denied any dislike to facility. CM stated that she would check on this and get back in touch with her. CM will continue to follow and assist as needed with discharge planning / needs. Appended by Georgia Mccain on 03/31/2019 11:41 CDT: CM contacted Crystal Charge Nurse that CM is working on this matter if family should ask. DCP- Discharge Planning Updated by [id number]: Natalie Shepherd on 03/23/19 4:[address] Patient Name: ELANA ARNOLD Admission Status: ER Accout number: [id number] Admission Date: 03-18-2019 : 1950 Admission Diagnosis:SHORTNESS OF BREATH Attending: REY RUSS Current LOS: 5 Anticipated DC Date: Planned Disposition: Home Primary Insurance: MEDICARE A & B Discharge Planning Comments: MD IS PLANNING FOR PATIENT TO BE EXTUBATED TODAY. AFTER SHE IS EXTUBATED I WILL MEET WITH HER AND SEE IF SHE IS INTERESTED IN [facility] OR OTHER SERVICES. PLEASE ADD AN ORDER FOR PT TO ASSESS AFTER SHE IS EXTUBATED. PATIENT STILL ON THE VENT OF NOW . CM TO FOLLOW AND ASSIST. Tax Services Manager: Natalie Shepherd DCP- Discharge Planning Updated by [id number]: Mana Valerie on 03/20/19 9:[address] Patient Name: ELANA ARNOLD Admission Status: ER Accout number: [id number] Admission Date: 03-18-2019 : 1950 Admission Diagnosis: Attending: REY RUSS Current LOS: 2 Anticipated DC Date: Planned Disposition: Home Primary Insurance: MEDICARE A & B Discharge Planning Comments: CM AFTER OBTAINING VERBAL CONSENT COMPLETED INITIAL ASSESSMENT. PT WAS EDUCATED ON CM ROLE AND ON ALL SERVICES AVAILABLE LIKE DME, HOME HEALTH AND REHAB SERVICES. PT DENIES ANY NEEDS AT THIS TIME. LIVES WITH SPOUSE AND STATES HOME IS A SAFE DC PLAN. CM WILL CONT TO FOLLOW THRU STAY Tax Services Manager: Mana Nobleman DCPIA - Discharge Planning Initial Assessment Updated by [email or web address]: Mana Nobleman on 03/20/19 10:32 am * Is the patient Alert and Oriented? Yes * How many steps to enter\exit or inside your home? * PCP NONE * Pharmacy [facility] * Preadmission Environment Home with Family * ADLs Independent * Verbal permission to speak to the caregivers and representatives has been obtained from the patient. N/A * Additional services required to return to the preadmission environment? No * Can the patient safely return to the preadmission environment? Yes * Has this patient been hospitalized within the prior 30 days at any hospital? No Last DP export: 03/30/19 5:55 p Patient Name: ELANA ARNOLD Page [phone] at 1149 All edits/amendments must be made on the electronic document DICTATION DATE: 03/31/19 1148 CORPORATE AUDITOR: LISS 03/31/19 1148 RPT#: [id number] DC DATE: STATUS: ADM IN [facility] [address] [place] [address] END OF REPORT
--- NOTE | 2019-03-31 12:27 | MORECARE ---
CASE MANAGEMENT DISCHARGE SUMMARY PATIENT: ELANA ARNOLD UNIT: [id number] ADM DATE: 03/18/19 AGE: 69 : 49 SEX: F ROOM/BED: D.2311 AUTHOR: ELKIN,DOC PHYSICIAN: REFERRING PHYSICIAN: REY RUSS MD DATE OF SERVICE: 03/31/19 Discharge Plan Patient Name: ELANA ARNOLD Facility: [facility]:[place] : 1950 Planned Disposition: Home Anticipated Discharge Date: Discharge Date: Expected LOS: Initial Reviewer: [id number] Initial Review Date: 03/20/2019 Generated: 03/31/19 1:27 pm Comments DCP- Discharge Planning Updated by [email or web address]: Georgia Mccain on 03/31/19 11:[address] CM called nursing wash house supervisor Carlyn that family is requesting lateral transfer to [facility] in . KRISHNA called [facility] in [phone] [facility]. KRISHNA spoke with Baldemar and gave the patients information and family request for transfer. Baldemar stated that she couldn't find any records where the patient had been to their facility. Baldemar stated that they didn't have any ICU beds currently available but she would needs to speak with her physician windchill administrator and would call CM back. KRISHNA called [facility] while awaiting callback from [facility] on transportation cost. Citlalli with [employer] gave a nunez quote of approximately $1800.00 with $1200. 00 needing to be paid up front and the rest can be paid out in monthly installments. KRISHNA received call back from Baldemar @ [facility]. Baldemar stated that Dr. Zhang had denied transfer d/t it being a lateral transfer ( [facility] has the specialist needed for patient's care) and no ICU bed availability. Baldemar stated that the patient could possibly transfer to [facility] [phone] for vent support. KRISHNA contacted [facility] [phone] and patient has been at their facility this year 10/26/18 -12/17/18 patient was listed under [facility] at that time. KRISHNA will check with MD to see if patient is appropriate for LTACH placement if that is the case and if patient is accepted for LTACH then transportation that would be covered for transfer. CM will continue to follow and assist as needed with discharge planning / needs. DCP- Discharge Planning Updated by [id number]: Georgia Mccain on 03/31/19 10:[address] CM received call from patient daughter Genoveva Arnold [phone] requesting for patient to be transferred to [facility] in [place]. Genoveva stated that patient has was in [facility] [place] with this same condition in the past and is wanting to transfer there. Daughter denied any dislike to facility. CM stated that she would check on this and get back in touch with her. CM will continue to follow and assist as needed with discharge planning / needs. Appended by Georgia Mccain on 03/31/2019 11:41 CDT: CM contacted Crystal Charge Nurse that CM is working on this matter if family should ask. DCP- Discharge Planning Updated by [id number]: Natalie Shepherd on 03/23/19 4:[address] Patient Name: ELANA ARNOLD Admission Status: ER Accout number: [id number] Admission Date: 03-18-2019 : 1950 Admission Diagnosis:SHORTNESS OF BREATH Attending: REY RUSS Current LOS: 5 Anticipated DC Date: Planned Disposition: Home Primary Insurance: MEDICARE A & B Discharge Planning Comments: MD IS PLANNING FOR PATIENT TO BE EXTUBATED TODAY. AFTER SHE IS EXTUBATED I WILL MEET WITH HER AND SEE IF SHE IS INTERESTED IN [facility] OR OTHER SERVICES. PLEASE ADD AN ORDER FOR PT TO ASSESS AFTER SHE IS EXTUBATED. PATIENT STILL ON THE VENT OF NOW . CM TO FOLLOW AND ASSIST. Staff Therapist: Natalie Shepherd DCP- Discharge Planning Updated by [id number]: Mana Padilla on 03/20/19 9:[address] Patient Name: ELANA ARNOLD Admission Status: ER Accout number: [id number] Admission Date: 03-18-2019 : 1950 Admission Diagnosis: Attending: REY RUSS Current LOS: 2 Anticipated DC Date: Planned Disposition: Home Primary Insurance: MEDICARE A & B Discharge Planning Comments: CM AFTER OBTAINING VERBAL CONSENT COMPLETED INITIAL ASSESSMENT. PT WAS EDUCATED ON CM ROLE AND ON ALL SERVICES AVAILABLE LIKE DME, HOME HEALTH AND REHAB SERVICES. PT DENIES ANY NEEDS AT THIS TIME. LIVES WITH SPOUSE AND STATES HOME IS A SAFE DC PLAN. CM WILL CONT TO FOLLOW THRU STAY Staff Therapist: Mana Padilla DCPIA - Discharge Planning Initial Assessment Updated by [email or web address]: Mana Padilla on 03/20/19 10:32 am * Is the patient Alert and Oriented? Yes * How many steps to enter\exit or inside your home? * PCP NONE * Pharmacy [facility] * Preadmission Environment Home with Family * ADLs Independent * Verbal permission to speak to the caregivers and representatives has been obtained from the patient. N/A * Additional services required to return to the preadmission environment? No * Can the patient safely return to the preadmission environment? Yes * Has this patient been hospitalized within the prior 30 days at any hospital? No Last DP export: 03/31/19 10:49 a Patient Name: ELANA ARNOLD Page [phone] at 1227 All edits/amendments must be made on the electronic document DICTATION DATE: 03/31/191226 CATHETER BUILDER: LISS 03/31/197 RPT#: [id number] DC DATE: STATUS: ADM IN [facility] [address] [place] [address] END OF REPORT
--- NOTE | 2019-03-31 13:07 | NUR ---
[address] BONILLA AT BEDSIDE EVALUATING ETT CUFF
--- NOTE | 2019-03-31 13:09 | NUR ---
1300 ORAL AND FACE CARE PROVIDED RESTAARTED DR BONILLA WILL DO BRONCOCOPY AND WEANING TRIAL IN AM RESTARTED PROPOFOL AT 20MCG/KG/MIN OR 12.1ML/HR RESTARTED TUBE FEEDING OF PULMOCARE AT 45ML/HR GOAL
--- NOTE | 2019-03-31 18:04 | MORECARE ---
CASE MANAGEMENT DISCHARGE SUMMARY PATIENT: ELANA ARNOLD UNIT: [id number] ADM DATE: 03/18/19 AGE: 69 : [birth year] SEX: F ROOM/BED: D.2311 AUTHOR: ELKIN,DOC PHYSICIAN: REFERRING PHYSICIAN: REY RUSS MD DATE OF SERVICE: 03/31/19 Discharge Plan Patient Name: ELANA ARNOLD Facility: [facility]:[place] : 1950 Planned Disposition: Home Anticipated Discharge Date: Discharge Date: Expected LOS: Initial Reviewer: Initial Review Date: 03/20/2019 Generated: 03/31/19 7:04 pm Comments DCP- Discharge Planning Updated by [id number]: Georgia Mccain on 03/31/19 4:[address] CM called nursing supervisor special effects Carlyn that family is requesting lateral transfer to [facility] in . KRISHNA called [facility] in [phone] Access Center. KRISHNA spoke with Baldemar and gave the patients information and family request for transfer. Baldemar stated that she couldn't find any records where the patient had been to their facility. Baldemar stated that they didn't have any ICU beds currently available but she would needs to speak with her physician commercial loan administrator and would call CM back. KRISHNA called [employer] while awaiting callback from [facility] on transportation cost. Citlalli with [employer] gave a nunez quote of approximately $1800.00 with $1200. 00 needing to be paid up front and the rest can be paid out in monthly installments. KRISHNA received call back from Baldemar @ [facility]. Baldemar stated that Dr. Zhang had denied transfer d/t it being a lateral transfer ( [facility] has the specialist needed for patient's care) and no ICU bed availability. Baldemar stated that the patient could possibly transfer to [facility] [phone] for vent support. KRISHNA contacted [facility] [place] [phone] and patient has been at their facility this year 10/26/18 -12/17/18 patient was listed under [facility] at that time. KRISHNA will check with MD to see if patient is appropriate for LTACH placement if that is the case and if patient is accepted for LTACH then transportation that would be covered for transfer. CM will continue to follow and assist as needed with discharge planning / needs. Appended by Georgia Mccain on 03/31/2019 17:58 CDT: Dr. Contreras states that he plans on doing a bronch on and possible extubation. If unsuccessful in extubation then he will refer to LTACH. DCP- Discharge Planning Updated by [id number]: Georgia Mccain on 03/31/19 10:[address] CM received call from patient daughter Genoveva Arnold [phone] requesting for patient to be transferred to [facility] [place]. Genoveva stated that patient has was in [facility] [place] with this same condition in the past and is wanting to transfer there. Daughter denied any dislike to facility. CM stated that she would check on this and get back in touch with her. CM will continue to follow and assist as needed with discharge planning / needs. Appended by Georgia Mccain on 03/31/2019 11:41 CDT: CM contacted [facility] Charge Nurse that CM is working on this matter if family should ask. DCP- Discharge Planning Updated by [id number]: Natalie Shepherd on 03/23/19 4:[address] Patient Name: ELANA ARNOLD Admission Status: ER Accout number: [id number] Admission Date: 03-18-2019 : 1950 Admission Diagnosis:SHORTNESS OF BREATH Attending: REY RUSS Current LOS: 5 Anticipated DC Date: Planned Disposition: Home Primary Insurance: MEDICARE A & B Discharge Planning Comments: MD IS PLANNING FOR PATIENT TO BE EXTUBATED TODAY. AFTER SHE IS EXTUBATED I WILL MEET WITH HER AND SEE IF SHE IS INTERESTED IN [facility] OR OTHER SERVICES. PLEASE ADD AN ORDER FOR PT TO ASSESS AFTER SHE IS EXTUBATED. PATIENT STILL ON THE VENT OF NOW . CM TO FOLLOW AND ASSIST. Geospatial Technician: Natalie Shepherd DCP- Discharge Planning Updated by [id number]: Mana Padilla on 03/20/19 9:[address] Patient Name: ELANA ARNOLD Admission Status: ER Accout number: [id number] Admission Date: 03-18-2019 : 1950 Admission Diagnosis: Attending: REY RUSS Current LOS: 2 Anticipated DC Date: Planned Disposition: Home Primary Insurance: MEDICARE A & B Discharge Planning Comments: CM AFTER OBTAINING VERBAL CONSENT COMPLETED INITIAL ASSESSMENT. PT WAS EDUCATED ON CM ROLE AND ON ALL SERVICES AVAILABLE LIKE DME, HOME HEALTH AND REHAB SERVICES. PT DENIES ANY NEEDS AT THIS TIME. LIVES WITH SPOUSE AND STATES HOME IS A SAFE DC PLAN. CM WILL CONT TO FOLLOW THRU STAY Geospatial Technician: Mana Padilla DCPIA - Discharge Planning Initial Assessment Updated by [id number]: Mana Padilla on 03/20/19 10:32 am * Is the patient Alert and Oriented? Yes * How many steps to enter\exit or inside your home? * PCP NONE * Pharmacy [facility] * Preadmission Environment Home with Family * ADLs Independent * Verbal permission to speak to the caregivers and representatives has been obtained from the patient. N/A * Additional services required to return to the preadmission environment? No * Can the patient safely return to the preadmission environment? Yes * Has this patient been hospitalized within the prior 30 days at any hospital? No Last DP export: 03/31/19 11:27 a Patient Name: ELANA ARNOLD Page 61694 at 1804 All edits/amendments must be made on the electronic document DICTATION DATE: 03/31/191803 CARPET BINDER: LISS 03/31/191803 RPT#: [id number] DC DATE: STATUS: ADM IN [facility] [address] [place] [address] END OF REPORT
[2019-04-01] VITALS (24 sets, daily range): BP systolic 83–137; BP diastolic 54–93
[2019-04-01 06:48] LABS: BASOPHILS 0.1 % (0-2); EOSINOPHILS 1.8 % (0-7); HEMATOCRIT 30.7 % (36.0-48.0); HEMOGLOBIN 9.4 g/dL (12-16); IMMATURE GRANULOCYTES 0.3 % (0-5); LYMPHOCYTES 38.7 % (15-50); MCH 25.4 pg (26.0-34.0); MCHC 30.6 g/dL (31.0-37.0); MEAN PLATELET VOLUME 10.4 fL (7.4-10.4); MONOCYTES 8.1 % (2-11); PLATELET COUNT 197 10x3/uL (130-400); RDW 17.8 % (11.5-14.5)
[2019-04-01 06:49] LABS: WBC 9.2 10x3/uL (4.8-10.8)
[2019-04-01 07:02] LABS: ALBUMIN 2.7 g/dL (3.4-5.0); ANION GAP 10.8 mmol/L (8-16); BILIRUBIN - TOTAL 0.21 mg/dL (0.2-1.3); CREATININE - SERUM 1.1 mg/dL (0.6-1.3); MAGNESIUM - SERUM 2.2 mg/dL (1.8-2.4); PHOSPHOROUS 3.6 mg/dL (2.5-4.9); POTASSIUM - SERUM 3.8 mmol/L (3.5-5.1); PROTEIN - SERUM 5.7 g/dL (6.4-8.2)
--- NOTE | 2019-04-01 07:15 | NUR ---
REPORT RECEIVED. PT IS ALERT AND ON THE VENT. VENT SETTINGS PER RT. IT IS PLANNED FOR PT TO HAVE A BRONCHOSCOPY TODAY. CONSENT SIGNED. PT HAS A STOVALL. SHE HAS A CENTRAL LINE IN HER RIGHT IJ. NS AND PROPOFOL ARE INFUSING. PT IS COMPLAINING OF RESTLESS LEG SYNDROME. ASSURED HER THAT I WOULD BE GIVING HER REQUIP WITH HER MORNING MEDS. HEAD TO TOE ASSESSMENT PERFORMED. WILL CONTINUE TO MONITOR.
--- NOTE | 2019-04-01 09:18 | NUR ---
PT COMPLAINS OF THROAT HURTING. STATES SHE IS HOT. CHECKED TEMP AND TURNED ON FAN. 98.4 ORALLY. WILL CONTINUE TO MONITOR.
--- NOTE | 2019-04-01 11:11 | NUR ---
1030-BRONCH STARTED ON PT BY DR BONILLA WITH RT PRESENT. 1040-PT EXTUBATED. NO S/S OF STRIDOR. 1045-RACEMIC EPI STARTED. 1055-PT ON O2 AT 4L. PT O2 SAT AT 97% ON 4L. DENIES HAVING ANY DIFFICULTY BREATHING. STATES SHE WANTS TO REST SOME. WILL BE MONITORING PT CLOSELY. BP 111/63.
--- NOTE | 2019-04-01 12:40 | NUR ---
PT RESTING QUIETLY. O2 SAT 94% ON 4L VIA NC. BLOOD SUGAR 186. PT IS NPO AT THIS TIME AGREED TO NOT GET INSULIN AND WAIT UNTIL WE CHECK BS AGAIN. NO OTHER NEEDS AT THIS TIME. WILL CONTINUE TO MONITOR.
--- NOTE | 2019-04-01 13:45 | NUR ---
PT STATES THAT SHE IS HURTING. WAITING ON SPEECH PATHOLOGIST TO COME DO EVAL AND TREAT. WILL CONTINUE TO MONITOR. VSS.
--- NOTE | 2019-04-01 14:54 | NUR ---
Rehab Note- Continue to follow the patient at this time. SHe was extubated today, will continue to monitor & follow at this time. Thank you for this referral! Olga Lidia Estes RN Clinical Liaison, [facility] Re[facility]
--- NOTE | 2019-04-01 15:36 | NUR ---
SPEECH PATH IN WITH PT AT THIS TIME TO DO EVAL AND TREAT. PER [facility], PT CAN BE ON A MECHANICAL SOFT DIET WITH THIN LIQUIDS.
--- NOTE | 2019-04-01 17:45 | NUR ---
PT ATE MOST OF HER DINNER WITH NO PROBLEM. DAUGHTER AT BEDSIDE. ABLE TO SWALLOW HER THIN LIQUIDS. BS 229. COVERED WITH 4 UNITS OF HUMULIN. COMPLAINS OF HEADACHE. WILL GIVE TYLENOL WITH CODEINE. VSS.
--- NOTE | 2019-04-01 19:00 | NUR ---
REPORT REC'D, ASSUMED PT'S CARE. ASSESSMENT COMPLETED PER FLOWSHEETS. PT A/O X3, DENIES ANY DISCOMFORT AT THIS TIME. CONT ON BIPAP, O2SAT 97%, UNLABORED. PPP. CALL LIGHT IN REACH. CONT TO MONITOR,
--- NOTE | 2019-04-01 20:30 | NUR ---
AT BEDSIDE. UPDATED AND QUESTIONS ANSWERED.
--- NOTE | 2019-04-01 21:00 | NUR ---
SCHEDULED MEDS GIVEN PER ORDER. PT MICHA WELL.
--- NOTE | 2019-04-01 23:00 | NUR ---
REASSESSMENT COMPLETED PER FLOWSHEETS. PT ON BIPAP WITHOUT DISTRESS. VSS.
[2019-04-02] VITALS (16 sets, daily range): BP systolic 101–134; BP diastolic 51–85
--- NOTE | 2019-04-02 01:00 | NUR ---
PT RESTING QUIELTY WITHOUT DISTRESS ON BIPAP. VSS. NO NEEDS VOICES AT THIS TIME. CPOC.
--- NOTE | 2019-04-02 03:59 | NUR ---
REASSESSMENT COMPLETED PER FLOWSHEETS. PT RESTING ON BIPAP WIHTOUT DISTRESS, VSS. NO NEEDS VOICES. WILL CONT TO MONITOR.
--- NOTE | 2019-04-02 09:14 | NUR ---
REVIEWED CURRENT NURSING PLAN AND AGREE WITH CONTINUED
--- NOTE | 2019-04-02 09:27 | NUR ---
Nutrition follow-up: Diet: ADA mechanical soft with thin liquids PO intake good per nursing labs reviewed Wt: 215# RDN following.
--- NOTE | 2019-04-02 13:51 | NUR ---
REPORT CALLED TO MED 2.
--- NOTE | 2019-04-02 14:28 | NUR ---
TRANSFEFFED TO 2136 VIA WHEELCHAIR. TO BED WITH ASSISTANCE.
--- NOTE | 2019-04-02 19:10 | NUR ---
PT RESTING IN BED. FAMILY AT BED SIDE. PT ON 2L O2 NC. SCD'S ON BUT NOT HOOKED UP. HOOKED SCD'S UP. NAME AND DATE PLACED ON BOARD. WILL CPOC
--- NOTE | 2019-04-02 19:38 | NUR ---
PT VOICE VERY QUIET. PT STATES HAVING PAIN IN RIGHT SHOULDER. PRN PAIN MEDICATION GIVEN ORDERED. PT STATES SHE IS SCARED. SPOKE WITH PT UNTIL SHE FELT BETTER. PT SIA NOTED. PT BED LOW AND CALL LIGHT IN REACH. SCDS ON BILATERAL. WILL CPOC
--- NOTE | 2019-04-02 20:52 | NUR ---
PT WAS STILL COMPLAINING OF LEG PAIN. WAS GOING TO CALL MANAGEMENT PROFESSOR BUT EMAR IS UPDATED AND HAS MEDICATION AVALIBLE THAT PT WAS WANTING. WILL CPOC
--- NOTE | 2019-04-02 22:20 | NUR ---
PT FSBS IS 249 30 UNITS OF LANTUS GIVEN ORDERED. SNACK OFFERED
--- NOTE | 2019-04-02 22:29 | NUR ---
4 UNITS OF HUMILIN GIVEN FOR FSBS OF 249, WENT OVER NIGHT MEDS WITH PT. PT VERBALIZED UNDERSTANDING OF ALL MEDICATIONS SNACK GIVEN, CLOTRIMAZOLE GIVEN FOR YEAST. PT COUGHING. NONE PRODUCTIVE. PT BED LOW AND CALL LIGHT IN REACH. WILL CPOC
--- NOTE | 2019-04-02 22:47 | NUR ---
STOVALL CARE PROVIDED. NO LOOPS OR KINKS. 890 DRAINED FROM STOVALL BAG. PT EATING GRAM CRACKERS. NS INFUSING TO RIGHT CVL KVO FLUSHED OTHER LUMENS, THE WHITE FLUSHES AND DRAWS BACK. THE RED IS NOT FLUSHING. PT HAS CALL LIGHT IN REACH. WILL CPOC
--- NOTE | 2019-04-02 23:07 | NUR ---
PT THROUGH WITH SNACK. BIPAP PLACED ON PT. PT HAS NO S/S OF DISTRESS. WILL CPOC
[2019-04-03] VITALS: BP 129/78
[2019-04-03 04:00] VITALS: BP 113/66
[2019-04-03 04:59] LABS: BASOPHILS 0.3 % (0-2); HEMATOCRIT 32.2 % (36.0-48.0); HEMOGLOBIN 9.9 g/dL (12-16); IMMATURE GRANULOCYTES 0.3 % (0-5); LYMPHOCYTES 47.4 % (15-50); MCH 25.9 pg (26.0-34.0); MCHC 30.7 g/dL (31.0-37.0); MCV 84.3 fL (80.0-100.0); MEAN PLATELET VOLUME 9.5 fL (7.4-10.4); MONOCYTES 5.1 % (2-11); NEUTROPHILS 44.9 % (40-80); RBC 3.82 10x6/uL (4.00-5.40); RDW 17.3 % (11.5-14.5); WBC 10.2 10x3/uL (4.8-10.8)
[2019-04-03 05:07] LABS: PLATELET COUNT 149 10x3/uL (130-400)
[2019-04-03 05:12] LABS: ANION GAP 7.2 mmol/L (8-16); CALCIUM 7.8 mg/dL (8.5-10.1); CARBON DIOXIDE 27.4 mmol/L (21.0-32.0); CREATININE - SERUM 1.1 mg/dL (0.6-1.3); MAGNESIUM - SERUM 2.2 mg/dL (1.8-2.4); PHOSPHOROUS 3.5 mg/dL (2.5-4.9); POTASSIUM - SERUM 3.6 mmol/L (3.5-5.1)
--- NOTE | 2019-04-03 06:57 | NUR ---
PT STOVALL CATH REMOVED PER PT REQUEST AND NURSES JUDGEMENT. STOVALL ONLY PLACED FOR ICU DUE TO VENT. PT SITTING UP IN BED. MORNING MEDICATIONS HAVE BEEN GIVEN. PT EATING A GRAMCRACKER. VOICE SOUNDS STRONGER THAN YESTURDAY. PT WILL CALL FOR ASSIST WHEN NEEDING TO USE RESTROOM. WILL CPOC
[2019-04-03 08:31] VITALS: BP 115/52
[2019-04-03 13:53] VITALS: BP 112/65
--- NOTE | 2019-04-03 14:22 | MORECARE ---
CASE MANAGEMENT DISCHARGE SUMMARY PATIENT: ELANA ARNOLD UNIT: [id number] ADM DATE: 03/18/19 AGE: 69 : [birth year] SEX: F ROOM/BED: D.9439 AUTHOR: ELKIN,DOC PHYSICIAN: REFERRING PHYSICIAN: REY RUSS MD DATE OF SERVICE: 04/03/19 Discharge Plan Patient Name: ELANA ARNOLD Facility: [facility]:[place] : 1950 Planned Disposition: Home Anticipated Discharge Date: Discharge Date: Expected LOS: Initial Reviewer: [email or web address] Initial Review Date: 03/20/2019 Generated: 04/03/19 3:21 pm Comments DCP- Discharge Planning Updated by [id number]: Annabella Rader on 04/03/19 1:[address] CM RECEIVED A TELEPHONE CALL FROM TATY MALAVE. [facility] LIAISON. CLAUDIA, THE LAYOUT MAN, RECIEVED A CONSULT. REHAB IS FOLLOWING THIS PATIENT POST EXTUBATION. THEY WILL REVIEW HER PROGRESS AND ADVISE REGARDING ACUTE REHAB ADMISSION. DCP- Discharge Planning Updated by [id number]: Georgia Mccain on 03/31/19 4:[address] CM called nursing assembly stock supervisor Carlyn that family is requesting lateral transfer to [facility] in . CM called [facility] [place] in [phone] [facility]. KRISHNA spoke with Baldemar and gave the patients information and family request for transfer. Baldemar stated that she couldn't find any records where the patient had been to their facility. Baldemar stated that they didn't have any ICU beds currently available but she would needs to speak with her physician windows server administrator and would call CM back. KRISHNA called [facility] while awaiting callback from [facility] on transportation cost. Citlalli with [facility] gave a nunez quote of approximately $1800.00 with $1200. 00 needing to be paid up front and the rest can be paid out in monthly installments. KRISHNA received call back from Baldemar @ [facility] [place]. Baldemar stated that Dr. Zhang had denied transfer d/t it being a lateral transfer ( [facility] has the specialist needed for patient's care) and no ICU bed availability. Baldemar stated that the patient could possibly transfer to [facility] [phone] for vent support. CM contacted [facility] [place] [phone] and patient has been at their facility this year 10/26/18 -12/17/18 patient was listed under [facility] at that time. CM will check with MD to see if patient is appropriate for LTACH placement if that is the case and if patient is accepted for LTACH then transportation that would be covered for transfer. CM will continue to follow and assist as needed with discharge planning / needs. Appended by Georgia Mccain on 03/31/2019 17:58 CDT: Dr. Contreras states that he plans on doing a bronch on and possible extubation. If unsuccessful in extubation then he will refer to LTACH. DCP- Discharge Planning Updated by [id number]: Georgia Mccain on 03/31/19 10:[address] CM received call from patient daughter Genoveva Arnold [phone] requesting for patient to be transferred to [facility] [place] in [place]. Genoveva stated that patient has was in [facility] [place] [place] with this same condition in the past and is wanting to transfer there. Daughter denied any dislike to facility. CM stated that she would check on this and get back in touch with her. CM will continue to follow and assist as needed with discharge planning / needs. Appended by Georgia Mccain on 03/31/2019 11:41 CDT: CM contacted [facility] Charge Nurse that CM is working on this matter if family should ask. DCP- Discharge Planning Updated by [id number]: Natalie Shepherd on 03/23/19 4:[address] Patient Name: ELANA ARNOLD Admission Status: ER Accout number: [id number] Admission Date: 03-18-2019 : 1950 Admission Diagnosis:SHORTNESS OF BREATH Attending: REY RUSS Current LOS: 5 Anticipated DC Date: Planned Disposition: Home Primary Insurance: MEDICARE A & B Discharge Planning Comments: MD IS PLANNING FOR PATIENT TO BE EXTUBATED TODAY. AFTER SHE IS EXTUBATED I WILL MEET WITH HER AND SEE IF SHE IS INTERESTED IN [facility] OR OTHER SERVICES. PLEASE ADD AN ORDER FOR PT TO ASSESS AFTER SHE IS EXTUBATED. PATIENT STILL ON THE VENT OF NOW . CM TO FOLLOW AND ASSIST. Features Editor: Natalie Shepherd DCP- Discharge Planning Updated by [id number]: Mana Padilla on 03/20/19 9:[address] Patient Name: ELANA ARNOLD Admission Status: ER Accout number: [id number] Admission Date: 03-18-2019 : 1950 Admission Diagnosis: Attending: REY RUSS Current LOS: 2 Anticipated DC Date: Planned Disposition: Home Primary Insurance: MEDICARE A & B Discharge Planning Comments: CM AFTER OBTAINING VERBAL CONSENT COMPLETED INITIAL ASSESSMENT. PT WAS EDUCATED ON CM ROLE AND ON ALL SERVICES AVAILABLE LIKE DME, HOME HEALTH AND REHAB SERVICES. PT DENIES ANY NEEDS AT THIS TIME. LIVES WITH SPOUSE AND STATES HOME IS A SAFE DC PLAN. CM WILL CONT TO FOLLOW THRU STAY Features Editor: Mana Padilla DCPIA - Discharge Planning Initial Assessment Updated by [email or web address]: Mana Padilla on 03/20/19 10:32 am * Is the patient Alert and Oriented? Yes * How many steps to enter\exit or inside your home? * PCP NONE * Pharmacy [facility] * Preadmission Environment Home with Family * ADLs Independent * Verbal permission to speak to the caregivers and representatives has been obtained from the patient. N/A * Additional services required to return to the preadmission environment? No * Can the patient safely return to the preadmission environment? Yes * Has this patient been hospitalized within the prior 30 days at any hospital? No Last DP export: 03/31/19 5:04 p Patient Name: ELANA ARNOLD Page [id number] at 1422 All edits/amendments must be made on the electronic document DICTATION DATE: 04/03/191420 GRINDER DRESSER: LISS 04/03/19 142 RPT#: [id number] DC DATE: STATUS: ADM IN [facility] [address] [place] [address] END OF REPORT
[2019-04-03 16:42] VITALS: BP 126/72
--- NOTE | 2019-04-03 19:10 | NUR ---
REPORT RECEIVED. NAME AND DATE PLACED ON BOARD. RECEIVED IN REPORT THAT THERE IS A REHAB CONSULT. PT WAS ASSISTED TO THE SHOWER TODAY. PT VOICE STILL HOARSE AND QUIET. NO OTHER CHANGES NOTED AT THIS TIME.
--- NOTE | 2019-04-03 19:16 | NUR ---
PT RESTING IN BED. FAMILY AT BED SIDE. PT COMPLAINS OF PAIN. PRN PAIN MEDICATION GIVEN. PT HAS 2L O2 NC. DENIES ANY NEEDS. NO S/S OF DISTRESS. WILL CPOC
[2019-04-03 20:00] VITALS: BP 130/54
--- NOTE | 2019-04-03 20:41 | NUR ---
PT UP TO RESTROOM WITH STANDBYE ASSIST. PT HAD A BLADDER ACCIDENT. CLEANED PT AND GOT NEW SLIP FREE SOCKS. PT BACK INTO BED. NO S/S OF DISTRESS. 2L O2 NC. NS KVO TO RIGHT IJ. WILL CPOC
--- NOTE | 2019-04-03 21:22 | NUR ---
NIGHT MEDICATIONS GIVEN. PT VERBALIZED UNDERSTANDING IN ALL MEDICATIONS. PT FSBS IS 138 30 UNITS OF LANTUS GIVEN. NO REGULAR INSULIN GIVEN. PT EATING A SNACK. PT SOUNDS LIKE SHE IS HAVING DYSPNEA, STATES IT SOUNDS BAD BUT IT ONLY FEELS LIKE IT IS THE SWOLLEN VOCAL CORDS. VOICE SOUNDS STRONGER THAN YESTURDAY. PT BED LOW AND CALL LIGHT IN REACH. NO S/S OF DISTRESS. WILL CPOC
--- NOTE | 2019-04-04 01:54 | NUR ---
PT AROUSED. REORIENTED TO TIME. PT THOUGHT SHE HAD SLEPT THE NIGHT AND IT WAS MORNING. ANCEF STARTED ORDERED. PT COMPLAINS OF PAIN. PRN MEDICATION GIVEN. PT DENIES ANY OTHER NEEDS. PLACED BIPAP BACK ON AFTER TAKING ORAL MEDS. WILL CPOC
[2019-04-04 04:00] VITALS: BP 107/57
--- NOTE | 2019-04-04 04:13 | NUR ---
PT ASLEEP. AROUSES TO VERBAL STIMULI. NO S/S OF DISTRESS. WILL CPOC
--- NOTE | 2019-04-04 07:00 | NUR ---
FSBS IS 133 NO INSULIN NEEDED. PT COMPLAINS OF SOME DISCOMFORT. PRN PAIN MEDICATION GIVEN. PT MORNING SYNTHROID AND PROTONIX GIVEN. PT DENIES ANY OTHER NEEDS. STILL HEARING EXTERNAL WHEEZE. PT DENIES ANY DYSPNEA. DECADRON NOT GIVEN AT THIS TIME. WILL PASS TO NEXT SHIFT TO GIVE ONCE MEDICATION IS VERIFIED. WILL CPOC
[2019-04-04 07:44] VITALS: BP 106/67
[2019-04-04 08:17] LABS: ANION GAP 7.6 mmol/L (8-16); CALCIUM 8.1 mg/dL (8.5-10.1); CARBON DIOXIDE 28.3 mmol/L (21.0-32.0); MAGNESIUM - SERUM 2.2 mg/dL (1.8-2.4); POTASSIUM - SERUM 3.9 mmol/L (3.5-5.1)
[2019-04-04 12:00] VITALS: BP 116/71
[2019-04-04 16:00] VITALS: BP 118/69
--- NOTE | 2019-04-04 19:00 | NUR ---
PATIENT LAYING IN BED. EYES CLOSED, CHEST RISING AND FALLING. NO DISTRESS NOTED.
[2019-04-04 20:00] VITALS: BP 107/59
--- NOTE | 2019-04-04 21:00 | NUR ---
PATIENT LAYING IN BED. NO COMPLAINTS AT THIS TIME. NO DISTRESS NOTED. FAMILY AT BEDSIDE.
--- NOTE | 2019-04-05 00:05 | NUR ---
I have reviewed this patient and I concur with the Shift Assessment completed by the Licensed Practical Nurse today this shift.
[2019-04-05 00:07] VITALS: BP 110/64
--- NOTE | 2019-04-05 01:41 | NUR ---
PATIENT LAYING IN BED. EYES CLOSED, CHEST RISING AND FALLING. NO DISTRESS NOTED.
[2019-04-05 04:00] VITALS: BP 108/54
[2019-04-05 04:39] LABS: BASOPHILS 0.3 % (0-2); EOSINOPHILS 2.1 % (0-7); HEMATOCRIT 34.5 % (36.0-48.0); HEMOGLOBIN 10.2 g/dL (12-16); IMMATURE GRANULOCYTES 0.4 % (0-5); LYMPHOCYTES 39.5 % (15-50); MCH 25.7 pg (26.0-34.0); MCHC 29.6 g/dL (31.0-37.0); MEAN PLATELET VOLUME 9.4 fL (7.4-10.4); MONOCYTES 4.4 % (2-11); NEUTROPHILS 53.3 % (40-80); RBC 3.97 10x6/uL (4.00-5.40); RDW 17.2 % (11.5-14.5); WBC 11.1 10x3/uL (4.8-10.8)
[2019-04-05 04:46] LABS: MCV 86.9 fL (80.0-100.0); PLATELET COUNT 208 10x3/uL (130-400)
[2019-04-05 06:02] LABS: ANION GAP 9.5 mmol/L (8-16); CALCIUM 7.9 mg/dL (8.5-10.1); CARBON DIOXIDE 28.5 mmol/L (21.0-32.0); CREATININE - SERUM 0.9 mg/dL (0.6-1.3)
--- NOTE | 2019-04-05 07:12 | NUR ---
ALERT AND ORIENTED. LUNGS WITH BILATERAL WHEEZES IN ALL ALEXANDER. HEART SOUNDS S1 AND S2 HEARD IN ALL ALEXANDER. BOWEL SOUNDS ACTIVE X 4. SKIN INTACT WITHOUT REDNESS. DENIES NEEDS. BED LOW. FALL PRECAUTIONS IN PLACE. CALL MANNING AND PERSONAL ITEMS IN REACH. WILL CONTINUE TO MONITOR.
[2019-04-05 08:27] VITALS: BP 138/72
--- NOTE | 2019-04-05 09:38 | NUR ---
DENIES PAIN. DENIES NEEDS. WILL CONTINUE TO MONITOR.
--- NOTE | 2019-04-05 12:11 | NUR ---
RESTING IN BED. DENIES PAIN. DENIES NEEDS. WILL CONTINUE TO MONITOR.
[2019-04-05 12:22] VITALS: BP 103/53
--- NOTE | 2019-04-05 14:12 | NUR ---
Nutrition Follow-Up: Pt reports good appetite/PO intake. Drinking Glucerna at time of visit. LEATHER WORKER signed off. Diet: Diabetic Mechanical Soft PO intake: 84% meal intake avg BM: 04/04 Wt: 192# Labs noted: Glu 165, Ca 7.9 Meds noted: Lasix, Humulin, Lantus, Protonix Continue current diet as tolerated. RD following.
--- NOTE | 2019-04-05 14:40 | NUR ---
RESTING IN BED. DENIES PAIN. DENIES NEEDS. WILL CONTINUE TO MONITOR.
--- NOTE | 2019-04-05 14:49 | NUR ---
C/O HEADACHE PAIN LEVEL 7/10. REQUESTED AND GIVEN PRN TYLENOL WITH CODEINE. DENIES FURTHER NEEDS.
--- NOTE | 2019-04-05 16:37 | NUR ---
PATIENT SLEEPING. WILL CONTINUE TO MONITOR.
[2019-04-05 16:44] VITALS: BP 121/68
--- NOTE | 2019-04-05 16:48 | MORECARE ---
CASE MANAGEMENT DISCHARGE SUMMARY PATIENT: ELANA ARNOLD UNIT: [id number] ADM DATE: 03/18/19 AGE: 69 : [birth year] SEX: F ROOM/BED: D.3224 AUTHOR: ELKIN,DOC PHYSICIAN: REFERRING PHYSICIAN: REY RUSS MD DATE OF SERVICE: 04/05/19 Discharge Plan Patient Name: ELANA ARNOLD Facility: [facility]:[place] : 1950 Planned Disposition: Home with Home Health Anticipated Discharge Date: 04/06/19 Discharge Date: Expected LOS: 19 Initial Reviewer: [id number] Initial Review Date: 03/20/2019 Generated: 04/05/19 5:47 pm Comments DCP- Discharge Planning Updated by [email or web address]: Annabella Rader on 04/03/19 1:[address] CM RECEIVED A TELEPHONE CALL FROM TATY MALAVE. [facility] LIAISON. CLAUDIA, THE WEIGHER AND CRUSHER, RECIEVED A CONSULT. REHAB IS FOLLOWING THIS PATIENT POST EXTUBATION. THEY WILL REVIEW HER PROGRESS AND ADVISE REGARDING ACUTE REHAB ADMISSION. DCP- Discharge Planning Updated by [id number]: Georgia Mccain on 03/31/19 4:[address] CM called nursing network control supervisor Carlyn that family is requesting lateral transfer to [facility] in . CM called [facility] in [phone] [facility]. KRISHNA spoke with Baldemar and gave the patients information and family request for transfer. Baldemar stated that she couldn't find any records where the patient had been to their facility. Baldemar stated that they didn't have any ICU beds currently available but she would needs to speak with her physician research administrator and would call CM back. KRISHNA called [facility] while awaiting callback from [facility] on transportation cost. Citlalli with [facility] gave a nunez quote of approximately $1800.00 with $1200. 00 needing to be paid up front and the rest can be paid out in monthly installments. KRISHNA received call back from Baldemar @ [facility]. Baldemar stated that Dr. Zhang had denied transfer d/t it being a lateral transfer ( [facility] has the specialist needed for patient's care) and no ICU bed availability. Baldemar stated that the patient could possibly transfer to [place] [phone] for vent support. CM contacted [facility] [phone] and patient has been at their facility this year 10/26/18 -12/17/18 patient was listed under [facility] at that time. CM will check with MD to see if patient is appropriate for LTACH placement if that is the case and if patient is accepted for LTACH then transportation that would be covered for transfer. CM will continue to follow and assist as needed with discharge planning / needs. Appended by Georgia Mccain on 03/31/2019 17:58 CDT: Dr. Contreras states that he plans on doing a bronch on and possible extubation. If unsuccessful in extubation then he will refer to LTACH. DCP- Discharge Planning Updated by [id number]: Georgia Mccain on 03/31/19 10:[address] CM received call from patient daughter Genoveva Arnold [phone] requesting for patient to be transferred to [facility] in [place]. Genoveva stated that patient has was in [facility] [place] with this same condition in the past and is wanting to transfer there. Daughter denied any dislike to facility. CM stated that she would check on this and get back in touch with her. CM will continue to follow and assist as needed with discharge planning / needs. Appended by Georgia Mccain on 03/31/2019 11:41 CDT: CM contacted Crystal Charge Nurse that CM is working on this matter if family should ask. DCP- Discharge Planning Updated by [id number]: Natalie Shepherd on 03/23/19 4:[address] Patient Name: ELANA ARNOLD Admission Status: ER Accout number: [id number] Admission Date: 03-18-2019 : 1950 Admission Diagnosis:SHORTNESS OF BREATH Attending: REY RUSS Current LOS: 5 Anticipated DC Date: Planned Disposition: Home Primary Insurance: MEDICARE A & B Discharge Planning Comments: MD IS PLANNING FOR PATIENT TO BE EXTUBATED TODAY. AFTER SHE IS EXTUBATED I WILL MEET WITH HER AND SEE IF SHE IS INTERESTED IN [facility] OR OTHER SERVICES. PLEASE ADD AN ORDER FOR PT TO ASSESS AFTER SHE IS EXTUBATED. PATIENT STILL ON THE VENT OF NOW . CM TO FOLLOW AND ASSIST. File Drawer Finisher: Natalie Shepherd DCP- Discharge Planning Updated by [id number]: Mana Padilla on 03/20/19 9:[address] Patient Name: ELANA ARNOLD Admission Status: ER Accout number: [id number] Admission Date: 03-18-2019 : 1950 Admission Diagnosis: Attending: REY RUSS Current LOS: 2 Anticipated DC Date: Planned Disposition: Home Primary Insurance: MEDICARE A & B Discharge Planning Comments: CM AFTER OBTAINING VERBAL CONSENT COMPLETED INITIAL ASSESSMENT. PT WAS EDUCATED ON CM ROLE AND ON ALL SERVICES AVAILABLE LIKE DME, HOME HEALTH AND REHAB SERVICES. PT DENIES ANY NEEDS AT THIS TIME. LIVES WITH SPOUSE AND STATES HOME IS A SAFE DC PLAN. CM WILL CONT TO FOLLOW THRU STAY File Drawer Finisher: Mana Padilla DCPIA - Discharge Planning Initial Assessment Updated by [id number]: Mana Padilla on 03/20/19 10:32 am * Is the patient Alert and Oriented? Yes * How many steps to enter\exit or inside your home? * PCP NONE * [facility] * Preadmission Environment Home with Family * ADLs Independent * Verbal permission to speak to the caregivers and representatives has been obtained from the patient. N/A * Additional services required to return to the preadmission environment? No * Can the patient safely return to the preadmission environment? Yes * Has this patient been hospitalized within the prior 30 days at any hospital? No Coverage Notice Reviewer: [id number] Keith Notice Issued Date-Time: 04/05/2019 12:25 Notice Type: Patient Choice Letter Notice Delivered To: Patient Relationship to Patient: Cellophane Press Operator Name: Delivery Method: HAND - Hand Delivered Kayli Days: Prior Verbal Notification: Recipient Understood Notice: Yes Recipient Signature: Yes Med Rec Note Co-signed by Attending: Coverage Notice Comment: NO HOME HEALTH PROVIDER PREFERENCE Reviewer: [id number] Demetris Keith Notice Issued Date-Time: 04/05/2019 12:25 Notice Type: IM Discharge Notice Notice Delivered To: Patient Relationship to Patient: Cellophane Press Operator Name: Delivery Method: HAND - Hand Delivered Kayli Days: Prior Verbal Notification: Recipient Understood Notice: Yes Recipient Signature: Yes Med Rec Note Co-signed by Attending: Coverage Notice Comment: Last DP export: 04/03/19 1:22 p Patient Name: ELANA ARNOLD Page 74046 at 1648 All edits/amendments must be made on the electronic document DICTATION DATE: 04/05/191646 PAYROLL BOOKKEEPER: LISS 04/05/191646 RPT#: [id number] DC DATE: STATUS: ADM IN [facility] [address] [place] [address] END OF REPORT
--- NOTE | 2019-04-05 16:59 | MORECARE ---
CASE MANAGEMENT DISCHARGE SUMMARY PATIENT: ELANA ARNOLD UNIT: [id number] ADM DATE: 03/18/19 AGE: 69 : [birth year] SEX: F ROOM/BED: D.9681 AUTHOR: ELKIN,DOC PHYSICIAN: REFERRING PHYSICIAN: REY RUSS MD DATE OF SERVICE: 04/05/19 Discharge Plan Patient Name: ELANA ARNOLD Facility: [facility]:[place] : 1950 Planned Disposition: Home with Home Health Anticipated Discharge Date: 04/06/19 Discharge Date: Expected LOS: 19 Initial Reviewer: [email or web address] Initial Review Date: 03/20/2019 Generated: 04/05/19 5:58 pm Comments DCP- Discharge Planning Updated by [id number]: Derek Keith on 04/05/19 3:[address] Patient Name: ELANA ARNOLD Encounter No: [id number] : 1950 Primary Insurance: MEDICARE A & B Anticipated DC Date: 04-06-2019 Planned Disposition: Home with Home Health External Planned Provider: NO PROVIDER PREFERENCE DCP follow-up note: CM RECEIVED ORDER FOR INPATIENT REHAB PRESCREENING. CM MET WITH PT IN ROOM TO DISCUSS DISCHARGE PLANNING AND NEEDS. CM DISCUSSED REHAB OPTIONS, LOCATIONS AND PROVIDERS. PT REPORTS SHE IS NOT GOING TO REHAB ANYWHERE. PT REPORTS SHE IS GOING HOME WHERE HER WILL BE AVAILABLE TO ASSIST HER IF NEEDED. CM DISCUSSED THERAPY NOTES, PT INSISTS SHE IS STRONG ENOUGH TO DISCHARGE HOME AND IS READY TO GO HOME TODAY. PT STATES SHE WILL ACCEPT HOME HEALTH. CM PROVIDED PT HOME HEALTH PROVIDER LISTING, PT HAS NO CHOICE ON PROVIDER, CHOICE SIGNED FOR NO HOME HEALTH PROVIDER. IMPORTANT MESSAGE FROM MEDICARE PROVIDED AND EXPLAINED. CM CALLED AND NOTIFIED TYRELL OF [facility] INPATIENT RE[facility]AB. PT REFUSED REHAB PLACEMENT. WANTS HOME WITH SPOUSE AND HOME HEALTH. CM TO ARRANGE HOME HEALTH SERVICES WITH PHYSICIAN AGREEMENT AND ORDER. Derek Keith, REX MANGEMENT DCP- Discharge Planning Updated by [email or web address]: Annabella Rader on 04/03/19 1:[address] CM RECEIVED A TELEPHONE CALL FROM TATY MALAVE. [facility] LIA[facility]. CLAUDIA, THE CHICKEN SEXER, RECIEVED A CONSULT. REHAB IS FOLLOWING THIS PATIENT POST EXTUBATION. THEY WILL REVIEW HER PROGRESS AND ADVISE REGARDING ACUTE REHAB ADMISSION. DCP- Discharge Planning Updated by [id number]: Georgia Mccain on 03/31/19 4:[address] CM called nursing checkout supervisor Carlyn that family is requesting lateral transfer to [facility] in . CM called [facility] in [phone] [facility]. KRISHNA spoke with Baldemar and gave the patients information and family request for transfer. Baldemar stated that she couldn't find any records where the patient had been to their facility. Baldemar stated that they didn't have any ICU beds currently available but she would needs to speak with her physician collection systems administrator and would call CM back. KRISHNA called [facility] while awaiting callback from [facility] on transportation cost. Citlalli with [facility] gave a nunez quote of approximately $1800.00 with $1200. 00 needing to be paid up front and the rest can be paid out in monthly installments. KRISHNA received call back from Baldemar @ [facility]. Baldemar stated that Dr. Zhang had denied transfer d/t it being a lateral transfer ( [facility] has the specialist needed for patient's care) and no ICU bed availability. Baldemar stated that the patient could possibly transfer to [facility] [phone] for vent support. CM contacted [place] [phone] and patient has been at their facility this year 10/26/18 -12/17/18 patient was listed under [facility] at that time. KRISHNA will check with MD to see if patient is appropriate for LTACH placement if that is the case and if patient is accepted for LTACH then transportation that would be covered for transfer. CM will continue to follow and assist as needed with discharge planning / needs. Appended by Georgia Mccain on 03/31/2019 17:58 CDT: Dr. Contreras states that he plans on doing a bronch on and possible extubation. If unsuccessful in extubation then he will refer to LTACH. DCP- Discharge Planning Updated by [id number]: Georgia Mccain on 03/31/19 10:[address] CM received call from patient daughter Genoveva Arnold [phone] requesting for patient to be transferred to [facility] in . Genoveva stated that patient has was in [facility] [place] with this same condition in the past and is wanting to transfer there. Daughter denied any dislike to facility. CM stated that she would check on this and get back in touch with her. CM will continue to follow and assist as needed with discharge planning / needs. Appended by Georgia Mccain on 03/31/2019 11:41 CDT: CM contacted Crystal Charge Nurse that CM is working on this matter if family should ask. DCP- Discharge Planning Updated by [id number]: Natalie Shepherd on 03/23/19 4:[address] Patient Name: ELANA ARNOLD Admission Status: ER Accout number: [id number] Admission Date: 03-18-2019 : 1950 Admission Diagnosis:SHORTNESS OF BREATH Attending: REY RUSS Current LOS: 5 Anticipated DC Date: Planned Disposition: Home Primary Insurance: MEDICARE A & B Discharge Planning Comments: MD IS PLANNING FOR PATIENT TO BE EXTUBATED TODAY. AFTER SHE IS EXTUBATED I WILL MEET WITH HER AND SEE IF SHE IS INTERESTED IN [facility] OR OTHER SERVICES. PLEASE ADD AN ORDER FOR PT TO ASSESS AFTER SHE IS EXTUBATED. PATIENT STILL ON THE VENT OF NOW . CM TO FOLLOW AND ASSIST. Senior Housekeeper: Natalie Cora DCP- Discharge Planning Updated by [email or web address]: Mana Padilla on 03/20/19 9:[address] Patient Name: ELANA ARNOLD Admission Status: ER Accout number: [id number] Admission Date: 03-18-2019 : 1950 Admission Diagnosis: Attending: REY RUSS Current LOS: 2 Anticipated DC Date: Planned Disposition: Home Primary Insurance: MEDICARE A & B Discharge Planning Comments: CM AFTER OBTAINING VERBAL CONSENT COMPLETED INITIAL ASSESSMENT. PT WAS EDUCATED ON CM ROLE AND ON ALL SERVICES AVAILABLE LIKE DME, HOME HEALTH AND REHAB SERVICES. PT DENIES ANY NEEDS AT THIS TIME. LIVES WITH SPOUSE AND STATES HOME IS A SAFE DC PLAN. CM WILL CONT TO FOLLOW THRU STAY Senior Housekeeper: Mana Padilla DCPIA - Discharge Planning Initial Assessment Updated by [id number]: Mana Padilla on 03/20/19 10:32 am * Is the patient Alert and Oriented? Yes * How many steps to enter\exit or inside your home? * PCP NONE * [facility] * Preadmission Environment Home with Family * ADLs Independent * Verbal permission to speak to the caregivers and representatives has been obtained from the patient. N/A * Additional services required to return to the preadmission environment? No * Can the patient safely return to the preadmission environment? Yes * Has this patient been hospitalized within the prior 30 days at any hospital? No Coverage Notice Reviewer: [id number] Demetris Keith Notice Issued Date-Time: 04/05/2019 12:25 Notice Type: Patient Choice Letter Notice Delivered To: Patient Relationship to Patient: Design Release Engineer Name: Delivery Method: HAND - Hand Delivered Kayli Days: Prior Verbal Notification: Recipient Understood Notice: Yes Recipient Signature: Yes Med Rec Note Co-signed by Attending: Coverage Notice Comment: NO HOME HEALTH PROVIDER PREFERENCE Reviewer: [id number] Demetris Keith Notice Issued Date-Time: 04/05/2019 12:25 Notice Type: IM Discharge Notice Notice Delivered To: Patient Relationship to Patient: Design Release Engineer Name: Delivery Method: HAND - Hand Delivered Kayli Days: Prior Verbal Notification: Recipient Understood Notice: Yes Recipient Signature: Yes Med Rec Note Co-signed by Attending: Coverage Notice Comment: Last DP export: 04/05/19 3:48 p Patient Name: ELANA ARNOLD Page 83920 at 1659 All edits/amendments must be made on the electronic document DICTATION DATE: 04/05/191657 HOSTLER HELPER: LISS 04/05/191657 RPT#: [id number] DC DATE: STATUS: ADM IN [facility] [address] [place] [address] END OF REPORT
--- NOTE | 2019-04-05 17:16 | NUR ---
SPOKE WITH JASON PANTOJA ABOUT PATIENT DESIRE TO DISCHARGE. STATES WILL GO SEE PATIENT.
--- NOTE | 2019-04-05 18:18 | NUR ---
ASSISTED TO BATHROOM AND BACK TO BED. PRN IMITREX GIVEN FOR MIGRAINE. DENIES FURTHER NEEDS. BED LOW. FALL PRECAUTIONS IN PLACE. CALL MANNING AND PERSONAL ITEMS IN REACH.
[2019-04-05 20:00] VITALS: BP 125/65
--- NOTE | 2019-04-05 22:17 | NUR ---
PATIENT FOUND UNRESPONSIVE WITH LIPS BLUE AND GASPING FOR AIR. PATIENT WAS ON HER O2. FSBS CHECKED 242. PATIENT'S TRILOGY MASK PLACE ON FACE AND A RAPID CALLED. AFTER A TRILOGY PLACED, PATIENT STARTED TO RESPOND. NEW ORDERS FROM RAPID INCLUDE CHEST XRAY, ABG'S, DC TRAZADONE AND LOWERED NEUROTIN DOSE. SEE RAPID RECORD FOR DETAILS.
--- NOTE | 2019-04-05 23:25 | NUR ---
PATIENT STILL RESPONSIVE WITH TRILOGY MASK ON.
--- NOTE | 2019-04-05 23:35 | NUR ---
PATIENT STILL RESPONSIVE WITH TRILOGY MASK ON.
[2019-04-06] VITALS (8 sets, daily range): BP systolic 113–164; BP diastolic 60–90
--- NOTE | 2019-04-06 | NUR ---
PATIENT STILL RESPONSIVE WITH TRILOGY ON.
--- NOTE | 2019-04-06 01:00 | NUR ---
PATIENT RESPONSIVE WITH TRILOGY ON.
--- NOTE | 2019-04-06 01:58 | NUR ---
FENTANLY INFUSION STARTED PER ORDER
--- NOTE | 2019-04-06 02:33 | NUR ---
PATIENT LAYING IN BED. EYES CLOSED, EASILY AROUSED. TRILOGY ON. NO DISTRESS NOTED. FAMILY AT BEDSIDE.
--- NOTE | 2019-04-06 03:29 | NUR ---
PATIENT LAYING IN BED, EYES CLOSED, CHEST RISING AND FALLING. PATIENT EASILY AROUSED. TRILOGY ON. NO COMPLAINTS AT THIS TIME. NO DISTRESS NOTED.
--- NOTE | 2019-04-06 04:30 | NUR ---
PATIENT STILL RESPONSIVE. HAS TRILOGY ON.
--- NOTE | 2019-04-06 05:15 | NUR ---
I have reviewed this patient and I concur with the Shift Assessment completed by the Licensed Practical Nurse today this shift.
[2019-04-06 05:35] LABS: BASOPHILS 0.1 % (0-2); EOSINOPHILS 1.6 % (0-7); HEMATOCRIT 35.9 % (36.0-48.0); HEMOGLOBIN 10.5 g/dL (12-16); IMMATURE GRANULOCYTES 0.7 % (0-5); LYMPHOCYTES 27.4 % (15-50); MCH 25.7 pg (26.0-34.0); MCHC 29.2 g/dL (31.0-37.0); MEAN PLATELET VOLUME 9.1 fL (7.4-10.4); MONOCYTES 5.5 % (2-11); NEUTROPHILS 64.7 % (40-80); PLATELET COUNT 225 10x3/uL (130-400); RBC 4.08 10x6/uL (4.00-5.40); RDW 17.6 % (11.5-14.5); WBC 19.2 10x3/uL (4.8-10.8)
[2019-04-06 05:43] LABS: ANION GAP 7.3 mmol/L (8-16); CALCIUM 7.9 mg/dL (8.5-10.1); CARBON DIOXIDE 32.1 mmol/L (21.0-32.0); POTASSIUM - SERUM 4.4 mmol/L (3.5-5.1)
--- NOTE | 2019-04-06 05:45 | NUR ---
PATIENT STILL RESPONSIVE. PATIENT HAS TRILOGY MASK ON.
--- NOTE | 2019-04-06 06:15 | NUR ---
PATIENT STILL RESPONSIVE. PATIENT HAS TRILOGY MASK ON.
--- NOTE | 2019-04-06 07:00 | NUR ---
RECEIVED REPORT. ASSUMED CARE OF PATIENT. CALL LIGHT WITHIN REACH. BIPAP AT 40%, O2 SAT 100% ON CONTINUOUS PULSE OX. FAMILY HAS STEPPED OUT OF ROOM AT THIS TIME. PATIENT AROUSES TO TOUCH, WILL NOD HEAD ACKNOWLEDGING INSTRUCTIONS. PATIENT TO REMAIN ON BIPAP. NO DISTRESS AT THIS TIME.
--- NOTE | 2019-04-06 07:30 | NUR ---
PER RT AND SCARLETT ORTIZN, PATIENT IS NOT TO COME GONZALO BIPAP FOR ANY REASON INCLUDING MEDS. BHASKAR, RT CALLING TO REPORT ABG'S. FAMILY AT BEDSIDE. PATIENT AROUSED TO TOUCH, OPENS EYES, AND NODS HEAD WHEN GIVEN INSTRUCTIONS.
--- NOTE | 2019-04-06 07:40 | NUR ---
SRAVAN PANTOJA AT BEDSIDE FOR ROUNDS AND SPEAKING WITH PATIENTS SPOUSE.
--- NOTE | 2019-04-06 10:31 | NUR ---
PATIENT JUST NOW ABLE TO BE TAKEN OFF OF BIPAP FOR MEDICATION ADMINISTRATION. TOLERATED ORAL MEDS WELL. NO DISTRESS.
--- NOTE | 2019-04-06 11:59 | NUR ---
FSBS 137. NO INSULIN ADMININSTERED.
--- NOTE | 2019-04-06 12:01 | NUR ---
REPORT CALLED TO MILLI IN ICU. PATIENT IS BEING TRANSFERRED TO 2303 DUE TO CO2 IS GOING BACK UP.
--- NOTE | 2019-04-06 12:23 | NUR ---
PATIENT TAKEN TO ICU 2304 AT THIS TIME WITH ALL PERSONAL BELONGINGS.
--- NOTE | 2019-04-06 12:32 | NUR ---
PT RECEIVED. VSS. PT LETHARGIC, PT WOKE UP REORIENTED ENCOURAGED TO DEEP BREATH BIPAP ADM. LIGHTS ON PT SITTING UP IN BED WATCHING TV WILL CONTINUE TO MONITOR
--- NOTE | 2019-04-06 14:29 | NUR ---
DR HUNT AT BEDSIDE GIVEN UDPATE. NO NEW CHANGES WILL CONTINUE TO MONITOR
--- NOTE | 2019-04-06 15:00 | NUR ---
REASSESSMENT COMPLETE PER FLOW SHEET. VSS. NO NEW CHANGES WILL CONTINUE TO MONITOR
--- NOTE | 2019-04-06 17:20 | NUR ---
PT SECOND HAND PAPER MACHINE LIGHT. ASSSITED ONTO BEDPAN NO VOID NOTED
--- NOTE | 2019-04-06 21:07 | NUR ---
BIPAP REMOVED FOR TRANSPORT TO CT. PATIENT STATES SHE IS NAUSEATED ZOFRAN GIVEN PER ORDER. PATIENT TO CT WITH NURSE AND RADIOLOGY STAFF.
--- NOTE | 2019-04-06 21:35 | NUR ---
PATIENT RETURNED FROM CT. PT STILL HAS STRIDOR NOTED, C/O OF NAUSEA.
--- NOTE | 2019-04-06 22:02 | NUR ---
DR. HUNT NOTIFIED OF PATIENT CONDITION AND THAT PT HAS STRIDOR NOTED. NEW ORDERS RECEIVED.
--- NOTE | 2019-04-06 22:20 | NUR ---
ER PHYSICIAN HERE AND WANTS ANESTHESIA TO BE CALLED FOR INTUBATION.
--- NOTE | 2019-04-06 22:35 | NUR ---
ANESTHESIA NOTIFIED OF INTUBATION NEEDED.
--- NOTE | 2019-04-06 22:56 | NUR ---
PT UNABLE TO TELL ME WHERE SHE IS OR WHAT TOWN SHE IS IN. AROUSES TO VERBAL STIMULI. PT DOES STATE SHE IS STILL NAUSEATED.
--- NOTE | 2019-04-06 23:45 | NUR ---
ANESTHESIA HERE FOR INTUBATION.
--- NOTE | 2019-04-06 23:58 | NUR ---
ANESTHESIA HERE PT INTUBATED WITH 7.5 ETT AT 24CM AT LIP.
[2019-04-07] VITALS (39 sets, daily range): BP systolic 74–158; BP diastolic 48–97
--- NOTE | 2019-04-07 00:08 | NUR ---
DIPROVAN STARTED PER ORDER AT 5MCG/KG/HR.
[2019-04-07 05:26] LABS: ANION GAP 5.7 mmol/L (8-16); CALCIUM 8.3 mg/dL (8.5-10.1); CARBON DIOXIDE 31.3 mmol/L (21.0-32.0); CREATININE - SERUM 0.9 mg/dL (0.6-1.3); MAGNESIUM - SERUM 1.9 mg/dL (1.8-2.4)
[2019-04-07 05:35] LABS: BASOPHILS 0.2 % (0-2); EOSINOPHILS 0.5 % (0-7); HEMATOCRIT 31.2 % (36.0-48.0); HEMOGLOBIN 9.3 g/dL (12-16); IMMATURE GRANULOCYTES 0.6 % (0-5); LYMPHOCYTES 31.4 % (15-50); MCH 25.5 pg (26.0-34.0); MCHC 29.8 g/dL (31.0-37.0); MEAN PLATELET VOLUME 9.9 fL (7.4-10.4); MONOCYTES 3.8 % (2-11); NEUTROPHILS 63.5 % (40-80); PLATELET COUNT 216 10x3/uL (130-400); RBC 3.65 10x6/uL (4.00-5.40); RDW 16.9 % (11.5-14.5)
[2019-04-07 05:37] LABS: MCV 85.5 fL (80.0-100.0)
[2019-04-07 05:52] LABS: APPEARANCE CLEAR (CLEAR); BILIRUBIN NEGATIVE (NEGATIVE); COLOR COLORLESS (YELLOW); GLUCOSE NEGATIVE (NEGATIVE); KETONE NEGATIVE (NEGATIVE); NITRITE NEGATIVE (NEGATIVE); PROTEIN NEGATIVE (NEGATIVE); UROBILINOGEN NORMAL (NORMAL)
--- NOTE | 2019-04-07 07:30 | NUR ---
REPORT RECEIVED. ASSESSMENT COMPLETE PER FLOW SHEET. VSS. NO NEW CHANGES WILL CONTINUE TO MONITOR
--- NOTE | 2019-04-07 09:07 | NUR ---
Nutrition follow-up: Pt now in ICU due to breathing issues Intubated with propofol started NPO at this time Labs reviewed Wt: 164# Recommend starting Pulmocare @ 25 ml/hr with increase to goal rate of 50 ml/hr with 25 ml H2O flush Q hour RDN following.
--- NOTE | 2019-04-07 11:00 | NUR ---
REASSESSMENT COMPLETE PER FLOW SHEET. VSS. NO NEW CHANGES WILL CONTINUE TO MONITOR
--- NOTE | 2019-04-07 14:10 | NUR ---
DR [facility] AWAITING CALL BACK
--- NOTE | 2019-04-07 14:56 | NUR ---
WILLIE AND KEVIN MARSHALL AT BEDSIDE PICC ADM
--- NOTE | 2019-04-07 15:00 | NUR ---
REASSESSMENT COMPLETE PER FLOW SHEET. VSS. NO NEW CHANGES WILL CONTINUE TO MONITOR
--- NOTE | 2019-04-07 16:58 | NUR ---
COMPLETE BB LINEN CHANGE ADM. CHG BATH ADM. NEEDS MET WILL CONTINUE TO MONITOR
[2019-04-08] VITALS (22 sets, daily range): BP systolic 94–148; BP diastolic 56–92
[2019-04-08 04:38] LABS: BASOPHILS 0.3 % (0-2); EOSINOPHILS 0 % (0-7); HEMATOCRIT 28.4 % (36.0-48.0); IMMATURE GRANULOCYTES 0.4 % (0-5); LYMPHOCYTES 41.9 % (15-50); MCH 25.8 pg (26.0-34.0); MCHC 31.7 g/dL (31.0-37.0); MEAN PLATELET VOLUME 9.6 fL (7.4-10.4); MONOCYTES 2.2 % (2-11); NEUTROPHILS 55.2 % (40-80); PLATELET COUNT 231 10x3/uL (130-400); RBC 3.49 10x6/uL (4.00-5.40); RDW 17.1 % (11.5-14.5); WBC 10.9 10x3/uL (4.8-10.8)
[2019-04-08 04:51] LABS: MCV 81.4 fL (80.0-100.0)
[2019-04-08 05:01] LABS: ANION GAP 9.3 mmol/L (8-16); CARBON DIOXIDE 29.3 mmol/L (21.0-32.0); CREATININE - SERUM 1.1 mg/dL (0.6-1.3); MAGNESIUM - SERUM 1.9 mg/dL (1.8-2.4); POTASSIUM - SERUM 3.6 mmol/L (3.5-5.1)
[2019-04-08 05:05] LABS: PHOSPHOROUS 3.1 mg/dL (2.5-4.9)
--- NOTE | 2019-04-08 06:00 | NUR ---
BED BATH/CHG BATH GIVEN, LINEN AND GOWN CHANGE, REPOSITIONED FOR COMFORT, ORAL CARE AND SUCTIONING COMPLETED, VSS, WILL CONTINUE TO ASSESS
--- NOTE | 2019-04-08 08:10 | NUR ---
REPORT RECEIVED. ASSESSMENT COMPLETE PER FLOW SHEET. VSS. ORAL ENDOTRACH CARE ADM. WILL CONTINUE TOMONITOR
--- NOTE | 2019-04-08 08:40 | NUR ---
DR RUIZ AT BEDSIDE GIVEN UPDATE. NEW ORDERS RECEIVED.
--- NOTE | 2019-04-08 10:10 | NUR ---
COMPLETE BB LINEN CHANGE ADM. CHG BATH ADM
--- NOTE | 2019-04-08 11:00 | NUR ---
REASSESSMENT COMPLETE PER FLOW SHEET. VSS NO NEW CHANGES WILL CONTINUE TO MFONITOR
--- NOTE | 2019-04-08 13:00 | NUR ---
trach and bronch at bedside
--- NOTE | 2019-04-08 15:00 | NUR ---
REASSESSMENT COMPLETE PER FLOW SHEET. VSS. NO NEW CHANGES WILL CONTINUE TO MONITOR
--- NOTE | 2019-04-08 15:08 | MORECARE ---
CASE MANAGEMENT DISCHARGE SUMMARY PATIENT: ELANA ARNOLD UNIT: [id number] ADM DATE: 03/18/19 AGE: 69 : [birth year] SEX: F ROOM/BED: D.2304 AUTHOR: ELKIN,DOC PHYSICIAN: REFERRING PHYSICIAN: REY RUSS MD DATE OF SERVICE: 04/08/19 Discharge Plan Patient Name: ELANA ARNOLD Facility: [facility]:[place] : 1950 Planned Disposition: Home with Home Health Anticipated Discharge Date: 04/06/19 Discharge Date: Expected LOS: 19 Initial Reviewer: [id number] Initial Review Date: 03/20/2019 Generated: 04/08/19 4:07 pm DCP- Discharge Planning Updated by [email or web address]: Derek Keith on 04/05/19 3:[address] Patient Name: ELANA ARNOLD Encounter No: [id number] : 1950 Primary Insurance: MEDICARE A & B Anticipated DC Date: 04-06-2019 Planned Disposition: Home with Home Health External Planned Provider: NO PROVIDER PREFERENCE DCP follow-up note: CM RECEIVED ORDER FOR INPATIENT REHAB PRESCREENING. CM MET WITH PT IN ROOM TO DISCUSS DISCHARGE PLANNING AND NEEDS. CM DISCUSSED REHAB OPTIONS, LOCATIONS AND PROVIDERS. PT REPORTS SHE IS NOT GOING TO REHAB ANYWHERE. PT REPORTS SHE IS GOING HOME WHERE HER WILL BE AVAILABLE TO ASSIST HER IF NEEDED. CM DISCUSSED THERAPY NOTES, PT INSISTS SHE IS STRONG ENOUGH TO DISCHARGE HOME AND IS READY TO GO HOME TODAY. PT STATES SHE WILL ACCEPT HOME HEALTH. CM PROVIDED PT HOME HEALTH PROVIDER LISTING, PT HAS NO CHOICE ON PROVIDER, CHOICE SIGNED FOR NO HOME HEALTH PROVIDER. IMPORTANT MESSAGE FROM MEDICARE PROVIDED AND EXPLAINED. CM CALLED AND NOTIFIED TYRELL OF [facility] INPATIENT REHAB. PT REFUSED REHAB PLACEMENT. WANTS HOME WITH SPOUSE AND HOME HEALTH. CM TO ARRANGE HOME HEALTH SERVICES WITH PHYSICIAN AGREEMENT AND ORDER. Derek Keith, REX MANGEMENT DCP- Discharge Planning Updated by [id number]: Annabella Rader on 04/03/19 1:[address] CM RECEIVED A TELEPHONE CALL FROM TATY MALAVE. [facility] LIAISON. CLAUDIA, THE MERCHANDISING EXECUTION ASSOCIATE, RECIEVED A CONSULT. REHAB IS FOLLOWING THIS PATIENT POST EXTUBATION. THEY WILL REVIEW HER PROGRESS AND ADVISE REGARDING ACUTE REHAB ADMISSION. DCP- Discharge Planning Updated by [email or web address]: Georgia Mccain on 03/31/19 4:[address] CM called nursing supervisor dock Carlyn that family is requesting lateral transfer to [facility] in . CM called [facility] in [phone] Access Center. KRISHNA spoke with Baldemar and gave the patients information and family request for transfer. Baldemar stated that she couldn't find any records where the patient had been to their facility. Baldemar stated that they didn't have any ICU beds currently available but she would needs to speak with her physician wide area network administrator and would call CM back. KRISHNA called [facility] while awaiting callback from [facility] on transportation cost. Citlalli with [facility] gave a nunez quote of approximately $1800.00 with $1200. 00 needing to be paid up front and the rest can be paid out in monthly installments. KRISHNA received call back from Baldemar @ [facility]. Baldemar stated that Dr. Zhang had denied transfer d/t it being a lateral transfer ( [facility] has the specialist needed for patient's care) and no ICU bed availability. Baldemar stated that the patient could possibly transfer to [facility] [phone] for vent support. KRISHNA contacted [facility] [phone] and patient has been at their facility this year 10/26/18 -12/17/18 patient was listed under [facility] at that time. KRISHNA will check with MD to see if patient is appropriate for LTACH placement if that is the case and if patient is accepted for LTACH then transportation that would be covered for transfer. CM will continue to follow and assist as needed with discharge planning / needs. Appended by Georgia Mccain on 03/31/2019 17:58 CDT: Dr. Contreras states that he plans on doing a bronch on and possible extubation. If unsuccessful in extubation then he will refer to LTACH. DCP- Discharge Planning Updated by [email or web address]: Georgia Mccain on 03/31/19 10:[address] CM received call from patient daughter Genoveva Arnold [phone] requesting for patient to be transferred to [facility] in . Genoveva stated that patient has was in [facility] with this same condition in the past and is wanting to transfer there. Daughter denied any dislike to facility. CM stated that she would check on this and get back in touch with her. CM will continue to follow and assist as needed with discharge planning / needs. Appended by Georgia Mccain on 03/31/2019 11:41 CDT: CM contacted Crystal Charge Nurse that CM is working on this matter if family should ask. DCP- Discharge Planning Updated by [email or web address]: Natalie Shepherd on 03/23/19 4:[address] Patient Name: ELANA ARNOLD Admission Status: ER Accout number: [id number] Admission Date: 03-18-2019 : 1950 Admission Diagnosis:SHORTNESS OF BREATH Attending: REY RUSS Current LOS: 5 Anticipated DC Date: Planned Disposition: Home Primary Insurance: MEDICARE A & B Discharge Planning Comments: MD IS PLANNING FOR PATIENT TO BE EXTUBATED TODAY. AFTER SHE IS EXTUBATED I WILL MEET WITH HER AND SEE IF SHE IS INTERESTED IN [facility] OR OTHER SERVICES. PLEASE ADD AN ORDER FOR PT TO ASSESS AFTER SHE IS EXTUBATED. PATIENT STILL ON THE VENT OF NOW . CM TO FOLLOW AND ASSIST. Benzene Worker: Natalie Shepherd DCP- Discharge Planning Updated by [id number]: Mana Padilla on 03/20/19 9:[address] Patient Name: ELANA ARNOLD Admission Status: ER Accout number: [id number] Admission Date: 03-18-2019 : 1950 Admission Diagnosis: Attending: REY RUSS Current LOS: 2 Anticipated DC Date: Planned Disposition: Home Primary Insurance: MEDICARE A & B Discharge Planning Comments: CM AFTER OBTAINING VERBAL CONSENT COMPLETED INITIAL ASSESSMENT. PT WAS EDUCATED ON CM ROLE AND ON ALL SERVICES AVAILABLE LIKE DME, HOME HEALTH AND REHAB SERVICES. PT DENIES ANY NEEDS AT THIS TIME. LIVES WITH SPOUSE AND STATES HOME IS A SAFE DC PLAN. CM WILL CONT TO FOLLOW THRU STAY Benzene Worker: Mana Padilla DCPIA - Discharge Planning Initial Assessment Updated by [email or web address]: Mana Padilla on 03/20/19 10:32 am * Is the patient Alert and Oriented? Yes * How many steps to enter\exit or inside your home? * PCP NONE * Pharmacy [facility] * Preadmission Environment Home with Family * ADLs Independent * Verbal permission to speak to the caregivers and representatives has been obtained from the patient. N/A * Additional services required to return to the preadmission environment? No * Can the patient safely return to the preadmission environment? Yes * Has this patient been hospitalized within the prior 30 days at any hospital? No External Providers External Provider: Teresita Sykes [facility] Next Contact Date: Service Request Date: Service Type: Resolution: Reviewer: Comments: Coverage Notice Reviewer: [id number] Keith Notice Issued Date-Time: 04/05/2019 12:25 Notice Type: Patient Choice Letter Notice Delivered To: Patient Relationship to Patient: Booster Station Operator Name: Delivery Method: HAND - Hand Delivered Kayli Days: Prior Verbal Notification: Recipient Understood Notice: Yes Recipient Signature: Yes Med Rec Note Co-signed by Attending: Coverage Notice Comment: NO HOME HEALTH PROVIDER PREFERENCE Reviewer: [id number] Keith Notice Issued Date-Time: 04/05/2019 12:25 Notice Type: IM Discharge Notice Notice Delivered To: Patient Relationship to Patient: Booster Station Operator Name: Delivery Method: HAND - Hand Delivered Kayli Days: Prior Verbal Notification: Recipient Understood Notice: Yes Recipient Signature: Yes Med Rec Note Co-signed by Attending: Coverage Notice Comment: Last DP export: 04/05/19 3:59 p Patient Name: ELANA ARNOLD Page 23790 at 1508 All edits/amendments must be made on the electronic document DICTATION DATE: 04/08/191506 RUBBER COVERING MACHINE OPERATOR: LISS 04/08/19 1507 RPT#: [id number] DC DATE: STATUS: ADM IN [facility] [address] [place] [address] END OF REPORT
--- NOTE | 2019-04-08 17:20 | NUR ---
complete bb linen change adm. family at bedside given update
--- NOTE | 2019-04-08 19:00 | NUR ---
REPORT RECEIVED. RECEIVED PATIENT IN BED AWAKE. TRACH INTACT/SECURE/PATENT AND CONNECTED TO MECHANICAL VENT WITH SETTINGS ORDERED. MONITORS CONECTED TO PATIENT WITH ALARMS SET. VSS. HOB UP 30 DEGREES CALL LIGHT IN REACH
--- NOTE | 2019-04-08 19:20 | MORECARE ---
CASE MANAGEMENT DISCHARGE SUMMARY PATIENT: ELANA ARNOLD UNIT: [id number] ADM DATE: 03/18/19 AGE: 69 : [birth year] SEX: F ROOM/BED: D.2304 AUTHOR: ELKIN,DOC PHYSICIAN: REFERRING PHYSICIAN: REY RUSS MD DATE OF SERVICE: 04/08/19 Discharge Plan Patient Name: ELANA ARNOLD Facility: [facility]:[place] : 1950 Planned Disposition: Home with Home Health Anticipated Discharge Date: 04/06/19 Discharge Date: Expected LOS: 19 Initial Reviewer: [id number] Initial Review Date: 03/20/2019 Generated: 04/08/19 8:19 pm DCP- Discharge Planning Updated by [email or web address]: Derek Keith on 04/05/19 3:[address] Patient Name: ELANA ARNOLD Encounter No: [id number] : 1950 Primary Insurance: MEDICARE A & B Anticipated DC Date: 04-06-2019 Planned Disposition: Home with Home Health External Planned Provider: NO PROVIDER PREFERENCE DCP follow-up note: CM RECEIVED ORDER FOR INPATIENT REHAB PRESCREENING. CM MET WITH PT IN ROOM TO DISCUSS DISCHARGE PLANNING AND NEEDS. CM DISCUSSED REHAB OPTIONS, LOCATIONS AND PROVIDERS. PT REPORTS SHE IS NOT GOING TO REHAB ANYWHERE. PT REPORTS SHE IS GOING HOME WHERE HER WILL BE AVAILABLE TO ASSIST HER IF NEEDED. CM DISCUSSED THERAPY NOTES, PT INSISTS SHE IS STRONG ENOUGH TO DISCHARGE HOME AND IS READY TO GO HOME TODAY. PT STATES SHE WILL ACCEPT HOME HEALTH. CM PROVIDED PT HOME HEALTH PROVIDER LISTING, PT HAS NO CHOICE ON PROVIDER, CHOICE SIGNED FOR NO HOME HEALTH PROVIDER. IMPORTANT MESSAGE FROM MEDICARE PROVIDED AND EXPLAINED. CM CALLED AND NOTIFIED TYRELL OF [facility] INPATIENT REH[facility]. PT REFUSED REHAB PLACEMENT. WANTS HOME WITH SPOUSE AND HOME HEALTH. CM TO ARRANGE HOME HEALTH SERVICES WITH PHYSICIAN AGREEMENT AND ORDER. Derek Keith, REX MANGEMENT DCP- Discharge Planning Updated by [email or web address]: Annabella Rader on 04/03/19 1:[address] CM RECEIVED A TELEPHONE CALL FROM TATY MALAVE. [facility] LIAISON. CLAUDIA, THE SERVICE ENGINE REPAIRER, RECIEVED A CONSULT. REHAB IS FOLLOWING THIS PATIENT POST EXTUBATION. THEY WILL REVIEW HER PROGRESS AND ADVISE REGARDING ACUTE REHAB ADMISSION. DCP- Discharge Planning Updated by [email or web address]: Georgia Mccain on 03/31/19 4:[address] CM called nursing supervisor gear repair Carlyn that family is requesting lateral transfer to [facility] in . CM called [facility] in [phone] Access Center. KRISHNA spoke with Baldemar and gave the patients information and family request for transfer. Baldemar stated that she couldn't find any records where the patient had been to their facility. Baldemar stated that they didn't have any ICU beds currently available but she would needs to speak with her physician defense travel administrator and would call CM back. KRISHNA called [facility] while awaiting callback from [facility] on transportation cost. Citlalli with [facility] gave a nunez quote of approximately $1800.00 with $1200. 00 needing to be paid up front and the rest can be paid out in monthly installments. KRISHNA received call back from Baldemar @ [facility]. Baldemar stated that Dr. Zhang had denied transfer d/t it being a lateral transfer ( [facility] has the specialist needed for patient's care) and no ICU bed availability. Baldemar stated that the patient could possibly transfer to [facility] [phone] for vent support. KRISHNA contacted [facility] [phone] and patient has been at their facility this year 10/26/18 -12/17/18 patient was listed under [facility] at that time. KRISHNA will check with MD to see if patient is appropriate for LTACH placement if that is the case and if patient is accepted for LTACH then transportation that would be covered for transfer. CM will continue to follow and assist as needed with discharge planning / needs. Appended by Georgia Mccain on 03/31/2019 17:58 CDT: Dr. Contreras states that he plans on doing a bronch on and possible extubation. If unsuccessful in extubation then he will refer to LTACH. DCP- Discharge Planning Updated by [id number]: Georgia Mccain on 03/31/19 10:[address] CM received call from patient daughter Genoveva Arnold [phone] requesting for patient to be transferred to [facility] in . Genoveva stated that patient has was in [facility] with this same condition in the past and is wanting to transfer there. Daughter denied any dislike to facility. CM stated that she would check on this and get back in touch with her. CM will continue to follow and assist as needed with discharge planning / needs. Appended by Georgia Mccain on 03/31/2019 11:41 CDT: CM contacted [facility] Charge Nurse that CM is working on this matter if family should ask. DCP- Discharge Planning Updated by [email or web address]: Natalie Shepherd on 03/23/19 4:[address] Patient Name: ELANA ARNOLD Admission Status: ER Accout number: [id number] Admission Date: 03-18-2019 : 1950 Admission Diagnosis:SHORTNESS OF BREATH Attending: REY RUSS Current LOS: 5 Anticipated DC Date: Planned Disposition: Home Primary Insurance: MEDICARE A & B Discharge Planning Comments: MD IS PLANNING FOR PATIENT TO BE EXTUBATED TODAY. AFTER SHE IS EXTUBATED I WILL MEET WITH HER AND SEE IF SHE IS INTERESTED IN [facility] OR OTHER SERVICES. PLEASE ADD AN ORDER FOR PT TO ASSESS AFTER SHE IS EXTUBATED. PATIENT STILL ON THE VENT OF NOW . CM TO FOLLOW AND ASSIST. Experimental Rocketsled Mechanic: Natalie Shepherd DCP- Discharge Planning Updated by [id number]: Mana Padilla on 03/20/19 9:[address] Patient Name: ELANA ARNOLD Admission Status: ER Accout number: [id number] Admission Date: 03-18-2019 : 1950 Admission Diagnosis: Attending: REY RUSS Current LOS: 2 Anticipated DC Date: Planned Disposition: Home Primary Insurance: MEDICARE A & B Discharge Planning Comments: CM AFTER OBTAINING VERBAL CONSENT COMPLETED INITIAL ASSESSMENT. PT WAS EDUCATED ON CM ROLE AND ON ALL SERVICES AVAILABLE LIKE DME, HOME HEALTH AND REHAB SERVICES. PT DENIES ANY NEEDS AT THIS TIME. LIVES WITH SPOUSE AND STATES HOME IS A SAFE DC PLAN. CM WILL CONT TO FOLLOW THRU STAY Experimental Rocketsled Mechanic: Mana Padilla DCPIA - Discharge Planning Initial Assessment Updated by [id number]: Mana Padilla on 03/20/19 10:32 am * Is the patient Alert and Oriented? Yes * How many steps to enter\exit or inside your home? * PCP NONE * Pharmacy [facility] * Preadmission Environment Home with Family * ADLs Independent * Verbal permission to speak to the caregivers and representatives has been obtained from the patient. N/A * Additional services required to return to the preadmission environment? No * Can the patient safely return to the preadmission environment? Yes * Has this patient been hospitalized within the prior 30 days at any hospital? No Coverage Notice Reviewer: [id number] Demetris Keith Notice Issued Date-Time: 04/05/2019 12:25 Notice Type: Patient Choice Letter Notice Delivered To: Patient Relationship to Patient: Terminal Make Up Operator Name: Delivery Method: HAND - Hand Delivered Kyali Days: Prior Verbal Notification: Recipient Understood Notice: Yes Recipient Signature: Yes Med Rec Note Co-signed by Attending: Coverage Notice Comment: NO HOME HEALTH PROVIDER PREFERENCE Reviewer: [id number] Demetris Keith Notice Issued Date-Time: 04/05/2019 12:25 Notice Type: IM Discharge Notice Notice Delivered To: Patient Relationship to Patient: Terminal Make Up Operator Name: Delivery Method: HAND - Hand Delivered Kayli Days: Prior Verbal Notification: Recipient Understood Notice: Yes Recipient Signature: Yes Med Rec Note Co-signed by Attending: Coverage Notice Comment: Last DP export: 04/08/19 2:08 p Patient Name: ELANA ARNOLD Page [id number] at 1920 All edits/amendments must be made on the electronic document DICTATION DATE: 04/08/191918 INCIDENT RESPONSE LEAD: LISS 04/08/191918 RPT#: [id number] DC DATE: STATUS: ADM IN [facility] [address] [place] [address] END OF REPORT
--- NOTE | 2019-04-08 19:33 | MORECARE ---
CASE MANAGEMENT DISCHARGE SUMMARY PATIENT: ELANA ARNOLD UNIT: [id number] ADM DATE: 03/18/19 AGE: 69 : [birth year] SEX: F ROOM/BED: D.2304 AUTHOR: ELKIN,DOC PHYSICIAN: REFERRING PHYSICIAN: REY RUSS MD DATE OF SERVICE: 04/08/19 Discharge Plan Patient Name: ELANA ARNOLD Facility: [facility]:[place] : 1950 Planned Disposition: Home with Home Health Anticipated Discharge Date: 04/06/19 Discharge Date: Expected LOS: 19 Initial Reviewer: [id number] Initial Review Date: 03/20/2019 Generated: 04/08/19 8:33 pm Comments DCP- Discharge Planning Updated by [id number]: Georgia Mccain on 04/08/19 6:[address] Late Entry 04/07/19 CM received LTACH referral. CM will get with family to get SHAHBAZ signed for LTACH. 04/08/19 CM spoke with nursing and they stated that the family has requested Christina Savage for Ltach. CM called and faxed records to [facility] with Christina Savage. She stated that it will probably be Friday before they can accept d/t pulmonary coverage. CM explained that patient had trach placed today and possible PEG placement tomorrow. CM will continue to follow and assist as needed with discharge planning needs. DCP- Discharge Planning Updated by [id number]: Derek Keith on 04/05/19 3:[address] Patient Name: ELANA ARNOLD Encounter No: [id number] : 1950 Primary Insurance: MEDICARE A & B Anticipated DC Date: 04-06-2019 Planned Disposition: Home with Home Health External Planned Provider: NO PROVIDER PREFERENCE DCP follow-up note: CM RECEIVED ORDER FOR INPATIENT REHAB PRESCREENING. CM MET WITH PT IN ROOM TO DISCUSS DISCHARGE PLANNING AND NEEDS. CM DISCUSSED REHAB OPTIONS, LOCATIONS AND PROVIDERS. PT REPORTS SHE IS NOT GOING TO REHAB ANYWHERE. PT REPORTS SHE IS GOING HOME WHERE HER WILL BE AVAILABLE TO ASSIST HER IF NEEDED. CM DISCUSSED THERAPY NOTES, PT INSISTS SHE IS STRONG ENOUGH TO DISCHARGE HOME AND IS READY TO GO HOME TODAY. PT STATES SHE WILL ACCEPT HOME HEALTH. CM PROVIDED PT HOME HEALTH PROVIDER LISTING, PT HAS NO CHOICE ON PROVIDER, CHOICE SIGNED FOR NO HOME HEALTH PROVIDER. IMPORTANT MESSAGE FROM MEDICARE PROVIDED AND EXPLAINED. CM CALLED AND NOTIFIED TYRELL OF [facility] INPATIENT REHAB. PT REFUSED REHAB PLACEMENT. WANTS HOME WITH SPOUSE AND HOME HEALTH. CM TO ARRANGE HOME HEALTH SERVICES WITH PHYSICIAN AGREEMENT AND ORDER. Derek Keith, CASE MANGEMENT DCP- Discharge Planning Updated by [id number]: Annabella Rader on 04/03/19 1:[address] CM RECEIVED A TELEPHONE CALL FROM TATY MALAVE. [facility] LIAISON. CLAUDIA, THE COLOR TELEVISION CONSOLE MONITOR, RECIEVED A CONSULT. REHAB IS FOLLOWING THIS PATIENT POST EXTUBATION. THEY WILL REVIEW HER PROGRESS AND ADVISE REGARDING ACUTE REHAB ADMISSION. DCP- Discharge Planning Updated by [id number]: Georgia Adán on 03/31/19 4:[address] CM called nursing facilities supervisor Carlyn that family is requesting lateral transfer to [facility] in . CM called [facility] in [phone] [facility]. KRISHNA spoke with Baldemar and gave the patients information and family request for transfer. Baldemar stated that she couldn't find any records where the patient had been to their facility. Baldemar stated that they didn't have any ICU beds currently available but she would needs to speak with her physician commercial lease administrator and would call CM back. KRISHNA called [employer] while awaiting callback from [facility] on transportation cost. Citlalli with [employer] gave a nunez quote of approximately $1800.00 with $1200. 00 needing to be paid up front and the rest can be paid out in monthly installments. KRISHNA received call back from Baldemar @ [facility]. Baldemar stated that Dr. Zhang had denied transfer d/t it being a lateral transfer ( [facility] has the specialist needed for patient's care) and no ICU bed availability. Baldemar stated that the patient could possibly transfer to [facility] [phone] for vent support. KRISHNA contacted [facility] [phone] and patient has been at their facility this year 10/26/18 -12/17/18 patient was listed under Gloria Arnold at that time. KRISHNA will check with MD to see if patient is appropriate for LTACH placement if that is the case and if patient is accepted for LTACH then transportation that would be covered for transfer. CM will continue to follow and assist as needed with discharge planning / needs. Appended by Georgia Mccain on 03/31/2019 17:58 CDT: Dr. Contreras states that he plans on doing a bronch on and possible extubation. If unsuccessful in extubation then he will refer to LTACH. DCP- Discharge Planning Updated by [email or web address]: Georgia Mccain on 03/31/19 10:[address] CM received call from patient daughter Genoveva Arnold [phone] requesting for patient to be transferred to [facility] in [place]. Genoveva stated that patient has was in [facility] [place] with this same condition in the past and is wanting to transfer there. Daughter denied any dislike to facility. CM stated that she would check on this and get back in touch with her. CM will continue to follow and assist as needed with discharge planning / needs. Appended by Georgia Mccain on 03/31/2019 11:41 CDT: CM contacted Crystal Charge Nurse that CM is working on this matter if family should ask. DCP- Discharge Planning Updated by [id number]: Natalie Shepherd on 03/23/19 4:[address] Patient Name: ELANA ARNOLD Admission Status: ER Accout number: [id number] Admission Date: 03-18-2019 : 1950 Admission Diagnosis:SHORTNESS OF BREATH Attending: REY RUSS Current LOS: 5 Anticipated DC Date: Planned Disposition: Home Primary Insurance: MEDICARE A & B Discharge Planning Comments: MD IS PLANNING FOR PATIENT TO BE EXTUBATED TODAY. AFTER SHE IS EXTUBATED I WILL MEET WITH HER AND SEE IF SHE IS INTERESTED IN [facility] OR OTHER SERVICES. PLEASE ADD AN ORDER FOR PT TO ASSESS AFTER SHE IS EXTUBATED. PATIENT STILL ON THE VENT OF NOW . CM TO FOLLOW AND ASSIST. Patient Care Associate: Natalie Shepherd DCP- Discharge Planning Updated by [id number]: Mana Padilla on 03/20/19 9:[address] Patient Name: ELANA ARNOLD Admission Status: ER Accout number: [id number] Admission Date: 03-18-2019 : 1950 Admission Diagnosis: Attending: REY RUSS Current LOS: 2 Anticipated DC Date: Planned Disposition: Home Primary Insurance: MEDICARE A & B Discharge Planning Comments: CM AFTER OBTAINING VERBAL CONSENT COMPLETED INITIAL ASSESSMENT. PT WAS EDUCATED ON CM ROLE AND ON ALL SERVICES AVAILABLE LIKE DME, HOME HEALTH AND REHAB SERVICES. PT DENIES ANY NEEDS AT THIS TIME. LIVES WITH SPOUSE AND STATES HOME IS A SAFE DC PLAN. CM WILL CONT TO FOLLOW THRU STAY Patient Care Associate: Mana Padilla DCPIA - Discharge Planning Initial Assessment Updated by [id number]: Mana Padilla on 03/20/19 10:32 am * Is the patient Alert and Oriented? Yes * How many steps to enter\exit or inside your home? * PCP NONE * Pharmacy [facility] * Preadmission Environment Home with Family * ADLs Independent * Verbal permission to speak to the caregivers and representatives has been obtained from the patient. N/A * Additional services required to return to the preadmission environment? No * Can the patient safely return to the preadmission environment? Yes * Has this patient been hospitalized within the prior 30 days at any hospital? No Coverage Notice Reviewer: [id number] Demetris Keith Notice Issued Date-Time: 04/05/2019 12:25 Notice Type: Patient Choice Letter Notice Delivered To: Patient Relationship to Patient: Drapery Hanger Name: Delivery Method: HAND - Hand Delivered Kayli Days: Prior Verbal Notification: Recipient Understood Notice: Yes Recipient Signature: Yes Med Rec Note Co-signed by Attending: Coverage Notice Comment: NO HOME HEALTH PROVIDER PREFERENCE Reviewer: [id number] Demetris Keith Notice Issued Date-Time: 04/05/2019 12:25 Notice Type: IM Discharge Notice Notice Delivered To: Patient Relationship to Patient: Drapery Hanger Name: Delivery Method: HAND - Hand Delivered Kayli Days: Prior Verbal Notification: Recipient Understood Notice: Yes Recipient Signature: Yes Med Rec Note Co-signed by Attending: Coverage Notice Comment: Reviewer: [id number] Demetris Mccain Notice Issued Date-Time: 04/07/2019 16:30 Notice Type: Patient Choice Letter Notice Delivered To: Family Member Relationship to Patient: Spouse Drapery Hanger Name: Derek Arnold Delivery Method: - Kayli Days: Prior Verbal Notification: Recipient Understood Notice: Recipient Signature: Yes Med Rec Note Co-signed by Attending: Coverage Notice Comment: [facility] Last DP export: 04/08/19 6:20 p Patient Name: ELANA ARNOLD Page [id number] at 1933 All edits/amendments must be made on the electronic document DICTATION DATE: 04/08/191932 WEATHERIZATION COORDINATOR: LISS 04/08/191932 RPT#: [id number] DC DATE: STATUS: ADM IN [facility] [address] [place] [address] END OF REPORT
[2019-04-09] VITALS (24 sets, daily range): BP systolic 93–141; BP diastolic 56–89
--- NOTE | 2019-04-09 03:00 | NUR ---
16 FR FC INSERTED UNDER STERILE TECHNIQUE.STAT LOCK POSITIONED ON PATIENTS RT INNER THIGH. PATIENT MICHA WITHOUT DIFF
[2019-04-09 03:54] LABS: APPEARANCE CLEAR (CLEAR); BILIRUBIN NEGATIVE (NEGATIVE); COLOR YELLOW (YELLOW); GLUCOSE NEGATIVE (NEGATIVE); KETONE NEGATIVE (NEGATIVE); NITRITE NEGATIVE (NEGATIVE); PROTEIN NEGATIVE (NEGATIVE); UROBILINOGEN NORMAL (NORMAL)
[2019-04-09 05:16] LABS: BASOPHILS 0.4 % (0-2); EOSINOPHILS 0.1 % (0-7); HEMATOCRIT 27.4 % (36.0-48.0); HEMOGLOBIN 8.7 g/dL (12-16); IMMATURE GRANULOCYTES 0.3 % (0-5); LYMPHOCYTES 40.6 % (15-50); MCHC 31.8 g/dL (31.0-37.0); MCV 81.8 fL (80.0-100.0); MEAN PLATELET VOLUME 9.6 fL (7.4-10.4); MONOCYTES 2.8 % (2-11); NEUTROPHILS 55.8 % (40-80); PLATELET COUNT 204 10x3/uL (130-400); RBC 3.35 10x6/uL (4.00-5.40); RDW 17.9 % (11.5-14.5); WBC 9.3 10x3/uL (4.8-10.8)
[2019-04-09 05:30] LABS: ANION GAP 11.2 mmol/L (8-16); CARBON DIOXIDE 27.1 mmol/L (21.0-32.0); MAGNESIUM - SERUM 2.1 mg/dL (1.8-2.4); PHOSPHOROUS 3.2 mg/dL (2.5-4.9); POTASSIUM - SERUM 3.3 mmol/L (3.5-5.1)
--- NOTE | 2019-04-09 08:56 | NUR ---
Nutrition follow-up: Pt remains NPO for PEG tube placement today. Trach placed 04/08 Labs reviewed WT: 210# Recommend starting Jevity 1.5 pascual @ 15 ml/hr with increase to goal rate of 50 ml/hr with 100 ml H2O flush q [address]N following.
--- NOTE | 2019-04-09 08:56 | NUR ---
BEDSIDE REPORT AND SHIFT ASSESSMENT COMPLETE. R UPPER ARM PICC LINE DRESSING CDI. VSS, WILL CONTINUE TO MONITOR.
--- NOTE | 2019-04-09 09:00 | NUR ---
MEDS GIVEN PER MAR, PO MEDS HELD D/T NPO STATUS. VSS, CALL LIGHT IN REACH. WILL CONTINUE TO MONITOR.
--- NOTE | 2019-04-09 10:00 | NUR ---
DR HUNT AT BEDSIDE, UPDATE GIVEN. NO SIGNS OF DISTRESS, VSS.
--- NOTE | 2019-04-09 11:00 | NUR ---
REASSESSMENT COMPLETE, NO CHANGES NOTED. VSS, CALL LIGHT IN REACH.
--- NOTE | 2019-04-09 11:20 | NUR ---
DR RUIZ AT BEDSIDE TO PERFORM PROCEDURE, TIME OUT COMPLETE. NEW ORDERS RECEIVED, MEDS GIVEN PER NOV.
--- NOTE | 2019-04-09 13:00 | NUR ---
MEDS GIVEN PER MAR, VSS.
--- NOTE | 2019-04-09 15:00 | NUR ---
REASSESSMENT COMPLETE, MEDS GIVEN PER MAR AND 20 ML FLUSH THROUGH GTUBE. PT DENIES ANY NEEDS. WILL CONTINUE TO MONITOR.
--- NOTE | 2019-04-09 17:00 | NUR ---
CHG BATH AND LINEN CHANGE COMPLETE. MEDS GIVEN PER MAR, GTUBE FLUSHED 20 MLS. NO NEEDS AT THIS TIME.
--- NOTE | 2019-04-09 17:37 | MORECARE ---
CASE MANAGEMENT DISCHARGE SUMMARY PATIENT: ELANA ARNOLD UNIT: [id number] ADM DATE: 03/18/19 AGE: 69 : [birth year] SEX: F ROOM/BED: D.2304 AUTHOR: ELKIN,DOC PHYSICIAN: REFERRING PHYSICIAN: REY RUSS MD DATE OF SERVICE: 04/09/19 Discharge Plan Patient Name: ELANA ARNOLD Facility: [facility]:[place] : 1950 Planned Disposition: Home with Home Health Anticipated Discharge Date: 04/06/19 Discharge Date: Expected LOS: 19 Initial Reviewer: [email or web address] Initial Review Date: 03/20/2019 Generated: 04/09/19 6:37 pm Comments DCP- Discharge Planning Updated by [email or web address]: Georgia Mccain on 04/09/19 4:[address] trach placed yesterday and PEG placed today. Plan for transfer to LTACH on Friday DCP- Discharge Planning Updated by [id number]: Georgia Mccain on 04/08/19 6:[address] Late Entry 04/07/19 CM received LTACH referral. CM will get with family to get SHAHBAZ signed for LTACH. 04/08/19 CM spoke with nursing and they stated that the family has requested Christina Savage for Ltach. CM called and faxed records to [facility] with Christina Savage. She stated that it will probably be Friday before they can accept d/t pulmonary coverage. CM explained that patient had trach placed today and possible PEG placement tomorrow. CM will continue to follow and assist as needed with discharge planning needs. DCP- Discharge Planning Updated by [id number]: Derek Keith on 04/05/19 3:[address] Patient Name: ELANA ARNOLD Encounter No: [id number] : 1950 Primary Insurance: MEDICARE A & B Anticipated DC Date: 04-06-2019 Planned Disposition: Home with Home Health External Planned Provider: NO PROVIDER PREFERENCE DCP follow-up note: CM RECEIVED ORDER FOR INPATIENT REHAB PRESCREENING. CM MET WITH PT IN ROOM TO DISCUSS DISCHARGE PLANNING AND NEEDS. CM DISCUSSED REHAB OPTIONS, LOCATIONS AND PROVIDERS. PT REPORTS SHE IS NOT GOING TO REHAB ANYWHERE. PT REPORTS SHE IS GOING HOME WHERE HER WILL BE AVAILABLE TO ASSIST HER IF NEEDED. CM DISCUSSED THERAPY NOTES, PT INSISTS SHE IS STRONG ENOUGH TO DISCHARGE HOME AND IS READY TO GO HOME TODAY. PT STATES SHE WILL ACCEPT HOME HEALTH. CM PROVIDED PT HOME HEALTH PROVIDER LISTING, PT HAS NO CHOICE ON PROVIDER, CHOICE SIGNED FOR NO HOME HEALTH PROVIDER. IMPORTANT MESSAGE FROM MEDICARE PROVIDED AND EXPLAINED. CM CALLED AND NOTIFIED TYRELL OF [facility] INPATIENT REHAB. PT REFUSED REHAB PLACEMENT. WANTS HOME WITH SPOUSE AND HOME HEALTH. CM TO ARRANGE HOME HEALTH SERVICES WITH PHYSICIAN AGREEMENT AND ORDER. Derek Keith, CASE MANGEMENT DCP- Discharge Planning Updated by [id number]: Annabellaroxy Rader on 04/03/19 1:[address] CM RECEIVED A TELEPHONE CALL FROM TATY MALAVE. [facility] LIAISON. CLAUDIA, THE AEROSPACE QUALITY ENGINEER, RECIEVED A CONSULT. REHAB IS FOLLOWING THIS PATIENT POST EXTUBATION. THEY WILL REVIEW HER PROGRESS AND ADVISE REGARDING ACUTE REHAB ADMISSION. DCP- Discharge Planning Updated by [id number]: Georgia Mccain on 03/31/19 4:[address] CM called nursing candle making supervisor Carlyn that family is requesting lateral transfer to [facility] in . CM called [facility] in [phone] [facility]. KRISHNA spoke with Baldemar and gave the patients information and family request for transfer. Baldemar stated that she couldn't find any records where the patient had been to their facility. Baldemar stated that they didn't have any ICU beds currently available but she would needs to speak with her physician sas administrator and would call CM back. KRISHNA called [employer] [facility] while awaiting callback from [facility] on transportation cost. Citlalli with [employer] [facility] gave a nunez quote of approximately $1800.00 with $1200. 00 needing to be paid up front and the rest can be paid out in monthly installments. KRISHNA received call back from Baldemar @ [facility]. Baldemar stated that Dr. Zhang had denied transfer d/t it being a lateral transfer ( [facility] has the specialist needed for patient's care) and no ICU bed availability. Baldemar stated that the patient could possibly transfer to [facility] [phone] for vent support. KRISHNA contacted [place] [phone] and patient has been at their facility this year 10/26/18 -12/17/18 patient was listed under [facility] at that time. CM will check with MD to see if patient is appropriate for LTACH placement if that is the case and if patient is accepted for LTACH then transportation that would be covered for transfer. CM will continue to follow and assist as needed with discharge planning / needs. Appended by Georgia Mccain on 03/31/2019 17:58 CDT: Dr. Contreras states that he plans on doing a bronch on and possible extubation. If unsuccessful in extubation then he will refer to LTACH. DCP- Discharge Planning Updated by [id number]: Georgia Mccain on 03/31/19 10:[address] CM received call from patient daughter Genoveva Arnold [phone] requesting for patient to be transferred to [facility] in [place]. Genoveva stated that patient has was in [facility] [place] with this same condition in the past and is wanting to transfer there. Daughter denied any dislike to facility. CM stated that she would check on this and get back in touch with her. CM will continue to follow and assist as needed with discharge planning / needs. Appended by Georgia Mccain on 03/31/2019 11:41 CDT: CM contacted Crystal Charge Nurse that CM is working on this matter if family should ask. DCP- Discharge Planning Updated by [id number]: Natalie Shepherd on 03/23/19 4:[address] Patient Name: ELANA ARNOLD Admission Status: ER Accout number: [id number] Admission Date: 03-18-2019 : 1950 Admission Diagnosis:SHORTNESS OF BREATH Attending: REY RUSS Current LOS: 5 Anticipated DC Date: Planned Disposition: Home Primary Insurance: MEDICARE A & B Discharge Planning Comments: MD IS PLANNING FOR PATIENT TO BE EXTUBATED TODAY. AFTER SHE IS EXTUBATED I WILL MEET WITH HER AND SEE IF SHE IS INTERESTED IN [facility] OR OTHER SERVICES. PLEASE ADD AN ORDER FOR PT TO ASSESS AFTER SHE IS EXTUBATED. PATIENT STILL ON THE VENT OF NOW . CM TO FOLLOW AND ASSIST. Slitter And Rewinder: Natalie Shepherd DCP- Discharge Planning Updated by [id number]: Mana Padilla on 03/20/19 9:[address] Patient Name: ELANA ARNOLD Admission Status: ER Accout number: [id number] Admission Date: 03-18-2019 : 1950 Admission Diagnosis: Attending: REY RUSS Current LOS: 2 Anticipated DC Date: Planned Disposition: Home Primary Insurance: MEDICARE A & B Discharge Planning Comments: CM AFTER OBTAINING VERBAL CONSENT COMPLETED INITIAL ASSESSMENT. PT WAS EDUCATED ON CM ROLE AND ON ALL SERVICES AVAILABLE LIKE DME, HOME HEALTH AND REHAB SERVICES. PT DENIES ANY NEEDS AT THIS TIME. LIVES WITH SPOUSE AND STATES HOME IS A SAFE DC PLAN. CM WILL CONT TO FOLLOW THRU STAY Slitter And Rewinder: Mana Padilla DCPIA - Discharge Planning Initial Assessment Updated by [email or web address]: Mana Padilla on 03/20/19 10:32 am * Is the patient Alert and Oriented? Yes * How many steps to enter\exit or inside your home? * PCP NONE * Pharmacy [facility] * Preadmission Environment Home with Family * ADLs Independent * Verbal permission to speak to the caregivers and representatives has been obtained from the patient. N/A * Additional services required to return to the preadmission environment? No * Can the patient safely return to the preadmission environment? Yes * Has this patient been hospitalized within the prior 30 days at any hospital? No Coverage Notice Reviewer: [id number] Demetris Keith Notice Issued Date-Time: 04/05/2019 12:25 Notice Type: Patient Choice Letter Notice Delivered To: Patient Relationship to Patient: Transit Planning Director Name: Delivery Method: HAND - Hand Delivered Kayli Days: Prior Verbal Notification: Recipient Understood Notice: Yes Recipient Signature: Yes Med Rec Note Co-signed by Attending: Coverage Notice Comment: NO HOME HEALTH PROVIDER PREFERENCE Reviewer: [id number] Demetris Keith Notice Issued Date-Time: 04/05/2019 12:25 Notice Type: IM Discharge Notice Notice Delivered To: Patient Relationship to Patient: Transit Planning Director Name: Delivery Method: HAND - Hand Delivered Kayli Days: Prior Verbal Notification: Recipient Understood Notice: Yes Recipient Signature: Yes Med Rec Note Co-signed by Attending: Coverage Notice Comment: Reviewer: [id number] Demetris Mccain Notice Issued Date-Time: 04/07/2019 16:30 Notice Type: Patient Choice Letter Notice Delivered To: Family Member Relationship to Patient: Spouse Transit Planning Director Name: Derek Arnold Delivery Method: - Kayli Days: Prior Verbal Notification: Recipient Understood Notice: Recipient Signature: Yes Med Rec Note Co-signed by Attending: Coverage Notice Comment: LTACH SHAHBAZ Last DP export: 04/08/19 6:33 p Patient Name: ELANA ARNOLD Page [phone] at 1737 All edits/amendments must be made on the electronic document DICTATION DATE: 04/09/191736 FIXTURE DESIGNER: LISS 04/09/191736 RPT#: [id number] DC DATE: STATUS: ADM IN [facility] [address] [place] [address] END OF REPORT
--- NOTE | 2019-04-09 19:45 | NUR ---
RECEIVED CARE OF PT, ASSESSMENT PER FLOWSHEET. HR SR ON CM, VENT SETTING PER ASSESSMENT, IV DRIPS PER FLOWSHEET, PPP, ABLE TO NOD HEAD TO YES/NO QUESTIONS, STOVALL CATH PATENT. ABLE TO POSITION SELF WITH LITTLE TO NO ASSISTANCE, ORAL CARE PROVIDED.
--- NOTE | 2019-04-09 21:30 | NUR ---
NO VISITORS PRESENT AT THIS TIME, HR SR ON CM, PT DENIES ANY NEEDS.
--- NOTE | 2019-04-09 23:30 | NUR ---
REASSESSMENT PER FLOWSHEET, NO ACUTE CHANGES NOTED, CONT POC.
[2019-04-10] VITALS (24 sets, daily range): BP systolic 94–154; BP diastolic 57–103
--- NOTE | 2019-04-10 01:50 | NUR ---
PT AROUSES EASILY TO VOICE, DENIES ANY NEEDS AT THIS TIME, VSS, SR ON CM.
--- NOTE | 2019-04-10 03:15 | NUR ---
REASSESSMENT PER FLOWSHEET, NO ACUTE CHANGES NOTED, SR ON CM, CONT POC.
--- NOTE | 2019-04-10 05:11 | NUR ---
PT C/O HEADACHE, REQUESTING SOMETHING FOR PAIN. PRN TYLENOL 650 MG ADMINISTERED PER MD ORDER, WILL MONITOR FOR DESIRED EFFECT. VSS
[2019-04-10 05:36] LABS: BASOPHILS 0.1 % (0-2); EOSINOPHILS 0 % (0-7); HEMATOCRIT 29.3 % (36.0-48.0); HEMOGLOBIN 9.2 g/dL (12-16); IMMATURE GRANULOCYTES 0.2 % (0-5); LYMPHOCYTES 31.1 % (15-50); MCH 25.7 pg (26.0-34.0); MCHC 31.4 g/dL (31.0-37.0); MCV 81.8 fL (80.0-100.0); MEAN PLATELET VOLUME 9.8 fL (7.4-10.4); MONOCYTES 3.3 % (2-11); NEUTROPHILS 65.3 % (40-80); PLATELET COUNT 200 10x3/uL (130-400); RBC 3.58 10x6/uL (4.00-5.40); RDW 17.8 % (11.5-14.5)
[2019-04-10 05:39] LABS: WBC 13.6 10x3/uL (4.8-10.8)
[2019-04-10 06:00] LABS: ANION GAP 13.7 mmol/L (8-16); CALCIUM 7.8 mg/dL (8.5-10.1); CARBON DIOXIDE 23.9 mmol/L (21.0-32.0); MAGNESIUM - SERUM 2.1 mg/dL (1.8-2.4); POTASSIUM - SERUM 3.6 mmol/L (3.5-5.1)
[2019-04-10 06:03] LABS: PHOSPHOROUS 4.2 mg/dL (2.5-4.9)
--- NOTE | 2019-04-10 07:00 | NUR ---
REC'D SEDATED ON VENT. VSS.
--- NOTE | 2019-04-10 08:00 | NUR ---
ASSESSED. HOBBS APPROPRIATELY. DENIES ANY PAIN OR OTHER NEED AT THIS TIME.
--- NOTE | 2019-04-10 10:00 | NUR ---
DR LEHMAN ROUNDS- UPDATED, ORDERS REC'D.
--- NOTE | 2019-04-10 10:20 | NUR ---
AC DECREASED TO [address] LEHMAN.
--- NOTE | 2019-04-10 11:30 | NUR ---
REASSESSED W/O CHANGES. HAS BEEN TEARFUL.
--- NOTE | 2019-04-10 13:00 | NUR ---
TF VITAL HN 1.5 STARTED AT 15ML/HR.
--- NOTE | 2019-04-10 13:15 | NUR ---
JENNIFER GREENWOOD AT BEDSIDE AND UPDATED.
--- NOTE | 2019-04-10 14:02 | NUR ---
ZOFRAN FOR C/O NAUSEA.
--- NOTE | 2019-04-10 16:00 | NUR ---
REASSESSED. TEARFUL- WRITES SHE'SBEEN LIED TO WHEN INSTRUCTED ON PASSY-MOHSEN VALVE LIKELY TO BE EVALUATED ON FRIDAY- SHE WANTS IT DONE TODAY. VERBAL REASSURANCE AND ENCOURAGEMENT OFFERED.
--- NOTE | 2019-04-10 17:48 | NUR ---
IMITREX FOR MIGRAINE.
--- NOTE | 2019-04-10 18:25 | NUR ---
REMAINS UPSET, WANTS TO KEEP WRITING NOTES SAYING "TODAY" AND "BEEN MORE THAN PATIENT". EMOTIONAL SUPPORT OFFERED, BECOMES MORE FRUSTRATED AND THROWS PEN AND NOTEPAPER TO FOOT OF BED.
--- NOTE | 2019-04-10 19:00 | NUR ---
ASSESSMENT DONE SEE FLOW SHEET. VSS. PT RESPONDS TO QUSTIONS BY WRITING ANSWERS. PT WRITES SHE IS READY TO GO HOME TEACHING PROVIDED. RESIDUAL 50ML. WILL CONTINUE TO MONITOR.
--- NOTE | 2019-04-10 23:00 | NUR ---
2100 MEDS GIVEN PER G TUBE. VSS. 2300 REASSESSMENT DONE SEE FLOW SHEET VSS
[2019-04-11] VITALS (23 sets, daily range): BP systolic 94–181; BP diastolic 45–96
--- NOTE | 2019-04-11 01:00 | NUR ---
ROOM FREED OF CLUTTER. VSS WILL CONTINUE TO MONITOR.
--- NOTE | 2019-04-11 03:08 | NUR ---
REASSESSMENT DONE SEE FLOW SHEET VSS.
[2019-04-11 04:37] LABS: BASOPHILS 0.2 % (0-2); EOSINOPHILS 0.5 % (0-7); HEMATOCRIT 29.3 % (36.0-48.0); IMMATURE GRANULOCYTES 0.2 % (0-5); LYMPHOCYTES 34.6 % (15-50); MCH 25.6 pg (26.0-34.0); MCHC 30.7 g/dL (31.0-37.0); MCV 83.2 fL (80.0-100.0); MEAN PLATELET VOLUME 9.6 fL (7.4-10.4); MONOCYTES 3.9 % (2-11); NEUTROPHILS 60.6 % (40-80); PLATELET COUNT 173 10x3/uL (130-400); RBC 3.52 10x6/uL (4.00-5.40); RDW 18.2 % (11.5-14.5)
[2019-04-11 04:51] LABS: ANION GAP 10.7 mmol/L (8-16); CARBON DIOXIDE 27.5 mmol/L (21.0-32.0); MAGNESIUM - SERUM 2.1 mg/dL (1.8-2.4); POTASSIUM - SERUM 3.2 mmol/L (3.5-5.1)
--- NOTE | 2019-04-11 05:00 | NUR ---
IO COLLECTED DAILY WEIGHT COLLECTED CHG BATH VSS.
--- NOTE | 2019-04-11 07:00 | NUR ---
SHIFT ASSESSMENT COMPLETED. PT CARE ASSUMED. MONITORS ON AND WORKING, VITALS STABLE. VENT SETTINGS NOTED. TRACH AND PEG SITE CDI. CALL LIGHT WITHIN REACH. WILL CONTINUE TO OBSERVE.
--- NOTE | 2019-04-11 09:00 | NUR ---
PT TURNED AND REPOSITIONED FOR COMFORT. MONITORS ON AND WORKING, VITALS STABLE. TYLENOL GIVEN PER PTS REQUEST FOR PAIN. CALL LIGHT WITHIN REACH. WILL CONTINUE TO OBSERVE.
--- NOTE | 2019-04-11 11:00 | NUR ---
FAMILY AT BEDSIDE, UPDATE PROVIDED. MONITORS ON AND WORKING, VITALS STABLE. SEE FLOW SHEET FOR FURTHER DETAILS. WILL CONTINUE TO OBSERVE.
--- NOTE | 2019-04-11 13:00 | NUR ---
NO CHANGES, PT TURNED AND REPOSITIONED FOR COMFORT. MONITORS ON AND WORKING, VITALS STABLE. PT TOLERATING CPAP TRIALS WELL. CALL LIGHT WITHIN REACH, WILL CONTINUE TO OBSERVE.
--- NOTE | 2019-04-11 15:00 | NUR ---
PT TOLERATING CPAP TRIALS WELL. MONITORS ON AND WORKING, VITALS STABLE. CALL LIGHT WITHIN REACH, SEE FLOW SHEET FOR FURTHER DETAILS. WILL CONTINUE TO OBSERVE.
--- NOTE | 2019-04-11 17:00 | NUR ---
PT TURNED AND REPOSITIONED FOR COMFORT. PT AWAKE AND ALERT, MONITORS ON AND WORKING. VITALS STABLE. CALL LIGHT WITHIN REACH, WILL CONTINUE TO OBSERVE.
--- NOTE | 2019-04-11 19:00 | NUR ---
BEDSIDE REPORT AND SHIFT ASSESSMENT COMPLETE. 10 ML STOVALL FLUSH, UOP FEDERICO. R UPPER ARM PICC PATENT, DRESSING CDI. PT REPOSITIONS INDEPENDENTLY. VSS, WILL CONTINUE TO MONITOR.
--- NOTE | 2019-04-11 21:00 | NUR ---
PT AGITATED AND RESTLESS, MEDS GIVEN PER MAR. REPOSITIONS SELF INDEPENDENTLY. VSS, CALL LIGHT IN REACH.
--- NOTE | 2019-04-11 23:00 | NUR ---
REASSESSMENT COMPLETE, SEE FLOWSHEET. VSS.
[2019-04-12] VITALS (24 sets, daily range): BP systolic 87–137; BP diastolic 54–93
--- NOTE | 2019-04-12 01:00 | NUR ---
PT STATES THAT SHE IS AGITATED AND HAVING A HARD TIME RESTING, MEDS GIVEN PER MAR. WILL CONTINUE TO MONITOR.
--- NOTE | 2019-04-12 02:15 | NUR ---
PT C/O HEADACHE, MEDS GIVEN PER MAR. WILL CONTINUE TO MONITOR.
--- NOTE | 2019-04-12 03:00 | NUR ---
REASSESSMENT COMPLETE, SEE FLOWSHEET. MEDS GIVEN PER MAR. VSS, NO SIGNS OF DISTRESS NOTED. WILL CONTINUE TO MONITOR.
--- NOTE | 2019-04-12 05:00 | NUR ---
LABS DRAWN, PT LAYING IN BED SLEEPING. VSS, NO SIGNS OF ACUTE DISTRESS. WILL CONTINUE TO MONITOR.
[2019-04-12 06:12] LABS: BASOPHILS 0.2 % (0-2); EOSINOPHILS 0 % (0-7); HEMATOCRIT 29.6 % (36.0-48.0); IMMATURE GRANULOCYTES 0.2 % (0-5); LYMPHOCYTES 21.9 % (15-50); MCH 25.4 pg (26.0-34.0); MCHC 30.4 g/dL (31.0-37.0); MCV 83.6 fL (80.0-100.0); MEAN PLATELET VOLUME 10.2 fL (7.4-10.4); MONOCYTES 2.9 % (2-11); NEUTROPHILS 74.8 % (40-80); PLATELET COUNT 155 10x3/uL (130-400); RBC 3.54 10x6/uL (4.00-5.40); RDW 17.8 % (11.5-14.5); WBC 12.8 10x3/uL (4.8-10.8)
[2019-04-12 06:18] LABS: ALBUMIN 2.5 g/dL (3.4-5.0); ANION GAP 9.7 mmol/L (8-16); BILIRUBIN - TOTAL 0.32 mg/dL (0.2-1.3); CALCIUM 7.8 mg/dL (8.5-10.1); CARBON DIOXIDE 27.2 mmol/L (21.0-32.0); CREATININE - SERUM 0.9 mg/dL (0.6-1.3); POTASSIUM - SERUM 3.9 mmol/L (3.5-5.1); PROTEIN - SERUM 5.4 g/dL (6.4-8.2)
--- NOTE | 2019-04-12 07:00 | NUR ---
RECEIVED REPORT FROM NIGHT NURSE. PATIENT RESTING IN BED AWAKE AND ALERT ON VENTILATOR VIA TRACH. VSS. WILL CONTINUE TO MONITOR
--- NOTE | 2019-04-12 08:00 | NUR ---
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 MEDS GIVEN. VSS
--- NOTE | 2019-04-12 08:57 | NUR ---
LT[facility] MANAGER EDITORIAL CAME BY TO EVALUATE PATIENT. PLAN TO TRANSFER TODAY. PT STABLE. WILL CONTINUE TO MONITOR
--- NOTE | 2019-04-12 09:46 | NUR ---
CHANGED PEG TUBE DRESSING. SITE HAD DRIED BLOOD. CLEANED WITH DERMAL WOUND CLEANSER AND GUAZE. DRESSED WITH CLEAN NON-WOVEN DRAIN SPONGES.
--- NOTE | 2019-04-12 09:58 | NUR ---
Nutrition follow-up: Pt with new trach, PEG TF started 04/10/19: Jevity 1.5 pascual @ goal rate of 55 ml/hr Labs reviewed Wt: 206# RDN following.
--- NOTE | 2019-04-12 11:00 | NUR ---
PULLED PATIENT UP IN BED AND TURNED TO RIGHT SIDE. VSS. WILL CONTINUE TO MONITOR
--- NOTE | 2019-04-12 13:00 | NUR ---
PATIENT RESTING IN BED C VSS. AWAKE ALERT AND ORIENTED. WILL CONTINUE TO MONITOR
--- NOTE | 2019-04-12 14:43 | NUR ---
PATIENT ACCEPTED BY [facility] BUT NOT TO TRANSFER TILL TOMORROW MORNING. NOTIFIED PATIENT.
--- NOTE | 2019-04-12 15:30 | NUR ---
GAVE PATIENT FULL CHG BATH. JOEL
--- NOTE | 2019-04-12 16:44 | NUR ---
CHANGED OUT TUBING FOR PEG TUBE FEED.
--- NOTE | 2019-04-12 17:19 | NUR ---
ORAL CARE GIVEN
--- NOTE | 2019-04-12 17:57 | MORECARE ---
CASE MANAGEMENT DISCHARGE SUMMARY PATIENT: ELANA ARNOLD UNIT: [id number] ADM DATE: 03/18/19 AGE: 69 : [birth year] SEX: F ROOM/BED: D.2304 AUTHOR: ELKIN,DOC PHYSICIAN: REFERRING PHYSICIAN: REY RUSS MD DATE OF SERVICE: 04/12/19 Discharge Plan Patient Name: ELANA ARNOLD Facility: [facility]:[place] : 1950 Planned Disposition: Home with Home Health Anticipated Discharge Date: 04/06/19 Discharge Date: Expected LOS: 19 Initial Reviewer: [email or web address] Initial Review Date: 03/20/2019 Generated: 04/12/19 6:57 pm Comments DCP- Discharge Planning Updated by [id number]: Georgia Mccain on 04/12/19 4:[address] Kati with [facility] came to evaluate patient this am. She later called back after speaking with their medical advisor and have agreed to accept patient plan for discharge in am to [facility]. [employer] has been notified will pickup patient for transfer around 0830 04/13/19. Nursing to call report to [phone] and to send updated MAR and send CD with images with patient in am. D/C IMM signed 1525 CM will continue to follow and assist as needed with discharge planning / needs. DCP- Discharge Planning Updated by [id number]: Georgia Mccain on 04/09/19 4:[address] trach placed yesterday and PEG placed today. Plan for transfer to [facility]ACH on Friday DCP- Discharge Planning Updated by [id number]: Georgia Mccain on 04/08/19 6:[address] Late Entry 04/07/19 CM received LTACH referral. CM will get with family to get SHAHBAZ signed for LTACH. 04/08/19 CM spoke with nursing and they stated that the family has requested [facility]. CM called and faxed records to Kati with [facility]. She stated that it will probably be Friday before they can accept d/t pulmonary coverage. CM explained that patient had trach placed today and possible PEG placement tomorrow. CM will continue to follow and assist as needed with discharge planning needs. DCP- Discharge Planning Updated by [id number]: Derek Keith on 04/05/19 3:[address] Patient Name: ELANA ARNOLD Encounter No: [id number] : 1950 Primary Insurance: MEDICARE A & B Anticipated DC Date: 04-06-2019 Planned Disposition: Home with Home Health External Planned Provider: NO PROVIDER PREFERENCE DCP follow-up note: CM RECEIVED ORDER FOR INPATIENT REHAB PRESCREENING. CM MET WITH PT IN ROOM TO DISCUSS DISCHARGE PLANNING AND NEEDS. CM DISCUSSED REHAB OPTIONS, LOCATIONS AND PROVIDERS. PT REPORTS SHE IS NOT GOING TO REHAB ANYWHERE. PT REPORTS SHE IS GOING HOME WHERE HER WILL BE AVAILABLE TO ASSIST HER IF NEEDED. CM DISCUSSED THERAPY NOTES, PT INSISTS SHE IS STRONG ENOUGH TO DISCHARGE HOME AND IS READY TO GO HOME TODAY. PT STATES SHE WILL ACCEPT HOME HEALTH. CM PROVIDED PT HOME HEALTH PROVIDER LISTING, PT HAS NO CHOICE ON PROVIDER, CHOICE SIGNED FOR NO HOME HEALTH PROVIDER. IMPORTANT MESSAGE FROM MEDICARE PROVIDED AND EXPLAINED. CM CALLED AND NOTIFIED TYRELL OF [facility] INPATIENT REHAB. PT REFUSED REHAB PLACEMENT. WANTS HOME WITH SPOUSE AND HOME HEALTH. CM TO ARRANGE HOME HEALTH SERVICES WITH PHYSICIAN AGREEMENT AND ORDER. Derek Keith, CASE MANGEMENT DCP- Discharge Planning Updated by [email or web address]: Annabella Rader on 04/03/19 1:[address] CM RECEIVED A TELEPHONE CALL FROM TATY MALAVE. [facility] LIAISON. CLAUDIA, THE IGNITION EXPERT, RECIEVED A CONSULT. REHAB IS FOLLOWING THIS PATIENT POST EXTUBATION. THEY WILL REVIEW HER PROGRESS AND ADVISE REGARDING ACUTE REHAB ADMISSION. DCP- Discharge Planning Updated by [id number]: Georgia Mccain on 03/31/19 4:[address] CM called nursing coating supervisor Carlyn that family is requesting lateral transfer to [facility] in . CM called [facility] in [phone] [facility]. CM spoke with Baldemar and gave the patients information and family request for transfer. Baldemar stated that she couldn't find any records where the patient had been to their facility. Baldemar stated that they didn't have any ICU beds currently available but she would needs to speak with her physician firewall administrator and would call CM back. CM called [facility] while awaiting callback from [facility] on transportation cost. Citlalli with [employer] gave a nunez quote of approximately $1800.00 with $1200. 00 needing to be paid up front and the rest can be paid out in monthly installments. CM received call back from Baldemar @ [facility]. Baldemar stated that Dr. Zhang had denied transfer d/t it being a lateral transfer ( [facility] has the specialist needed for patient's care) and no ICU bed availability. Baldemar stated that the patient could possibly transfer to [facility] [phone] for vent support. CM contacted [facility] [phone] and patient has been at their facility this year 10/26/18 -12/17/18 patient was listed under [facility] at that time. CM will check with MD to see if patient is appropriate for LTACH placement if that is the case and if patient is accepted for LTACH then transportation that would be covered for transfer. CM will continue to follow and assist as needed with discharge planning / needs. Appended by Georgai Mccain on 03/31/2019 17:58 CDT: Dr. Contreras states that he plans on doing a bronch on and possible extubation. If unsuccessful in extubation then he will refer to LTACH. DCP- Discharge Planning Updated by [email or web address]: Georgia Mccain on 03/31/19 10:[address] CM received call from patient daughter Genoveva Arnold [phone] requesting for patient to be transferred to [facility] [place]. Genoveva stated that patient has was in [facility] [place] with this same condition in the past and is wanting to transfer there. Daughter denied any dislike to facility. CM stated that she would check on this and get back in touch with her. CM will continue to follow and assist as needed with discharge planning / needs. Appended by Georgia Mccain on 03/31/2019 11:41 CDT: KRISHNA contacted [facility] Charge Nurse that CM is working on this matter if family should ask. DCP- Discharge Planning Updated by [id number]: Natalie Shepherd on 03/23/19 4:[address] Patient Name: ELANA ARNOLD Admission Status: ER Accout number: [id number] Admission Date: 03-18-2019 : 1950 Admission Diagnosis:SHORTNESS OF BREATH Attending: REY RUSS Current LOS: 5 Anticipated DC Date: Planned Disposition: Home Primary Insurance: MEDICARE A & B Discharge Planning Comments: MD IS PLANNING FOR PATIENT TO BE EXTUBATED TODAY. AFTER SHE IS EXTUBATED I WILL MEET WITH HER AND SEE IF SHE IS INTERESTED IN [facility] OR OTHER SERVICES. PLEASE ADD AN ORDER FOR PT TO ASSESS AFTER SHE IS EXTUBATED. PATIENT STILL ON THE VENT OF NOW . CM TO FOLLOW AND ASSIST. Roll Forming Supervisor: Natalie Shepherd DCP- Discharge Planning Updated by [id number]: Mana Padilla on 03/20/19 9:[address] Patient Name: ELANA ARNOLD Admission Status: ER Accout number: [id number] Admission Date: 03-18-2019 : 1950 Admission Diagnosis: Attending: REY RUSS Current LOS: 2 Anticipated DC Date: Planned Disposition: Home Primary Insurance: MEDICARE A & B Discharge Planning Comments: CM AFTER OBTAINING VERBAL CONSENT COMPLETED INITIAL ASSESSMENT. PT WAS EDUCATED ON CM ROLE AND ON ALL SERVICES AVAILABLE LIKE DME, HOME HEALTH AND REHAB SERVICES. PT DENIES ANY NEEDS AT THIS TIME. LIVES WITH SPOUSE AND STATES HOME IS A SAFE DC PLAN. CM WILL CONT TO FOLLOW THRU STAY Roll Forming Supervisor: Mana Padilla DCPIA - Discharge Planning Initial Assessment Updated by [email or web address]: Mana Padilla on 03/20/19 10:32 am * Is the patient Alert and Oriented? Yes * How many steps to enter\exit or inside your home? * PCP NONE * Pharmacy [facility] * Preadmission Environment Home with Family * ADLs Independent * Verbal permission to speak to the caregivers and representatives has been obtained from the patient. N/A * Additional services required to return to the preadmission environment? No * Can the patient safely return to the preadmission environment? Yes * Has this patient been hospitalized within the prior 30 days at any hospital? No Coverage Notice Reviewer: [email or web address] Demetris Keith Notice Issued Date-Time: 04/05/2019 12:25 Notice Type: Patient Choice Letter Notice Delivered To: Patient Relationship to Patient: Pulp And Paper Tester Name: Delivery Method: HAND - Hand Delivered Kayli Days: Prior Verbal Notification: Recipient Understood Notice: Yes Recipient Signature: Yes Med Rec Note Co-signed by Attending: Coverage Notice Comment: NO HOME HEALTH PROVIDER PREFERENCE Reviewer: [id number] Demetris Keith Notice Issued Date-Time: 04/05/2019 12:25 Notice Type: IM Discharge Notice Notice Delivered To: Patient Relationship to Patient: Pulp And Paper Tester Name: Delivery Method: HAND - Hand Delivered Kayli Days: Prior Verbal Notification: Recipient Understood Notice: Yes Recipient Signature: Yes Med Rec Note Co-signed by Attending: Coverage Notice Comment: Reviewer: [id number] Demetris Mccain Notice Issued Date-Time: 04/07/2019 16:30 Notice Type: Patient Choice Letter Notice Delivered To: Family Member Relationship to Patient: Spouse Pulp And Paper Tester Name: Derek Arnold Delivery Method: - Kayli Days: Prior Verbal Notification: Recipient Understood Notice: Recipient Signature: Yes Med Rec Note Co-signed by Attending: Coverage Notice Comment: [facility] Last DP export: 04/09/19 4:37 p Patient Name: ELANA ARNOLD Page [id number] at 1757 All edits/amendments must be made on the electronic document DICTATION DATE: 04/12/191756 MASSAGE THERAPY INSTRUCTOR: LISS 04/12/191756 RPT#: [id number] DC DATE: STATUS: ADM IN [facility] [address] [place] [address] END OF REPORT
[2019-04-13] VITALS (9 sets, daily range): BP systolic 93–124; BP diastolic 49–71
--- NOTE | 2019-04-13 00:01 | NUR ---
1900 REPORT RECEIVED CARE ASSUMED ASSESSMENT DONE SEE FLOW SHEET VSS. 2100 MEDS GIVEN PER NOV. VSS 2300 REASSESSMENT DONE SEE FLOW SHEET.
--- NOTE | 2019-04-13 01:00 | NUR ---
PT IN BED RESTING NO SIGNS OF ACUTE DISTRESS NOTED.
--- NOTE | 2019-04-13 03:00 | NUR ---
REASSESSMENT DONE SEE FLOW SHEET. VSS.
[2019-04-13 05:27] LABS: BASOPHILS 0.2 % (0-2); EOSINOPHILS 0.7 % (0-7); HEMATOCRIT 30.4 % (36.0-48.0); HEMOGLOBIN 9.5 g/dL (12-16); IMMATURE GRANULOCYTES 0.2 % (0-5); LYMPHOCYTES 27.5 % (15-50); MCHC 31.3 g/dL (31.0-37.0); MCV 83.3 fL (80.0-100.0); MEAN PLATELET VOLUME 10.5 fL (7.4-10.4); MONOCYTES 5.4 % (2-11); PLATELET COUNT 169 10x3/uL (130-400); RBC 3.65 10x6/uL (4.00-5.40); RDW 17.6 % (11.5-14.5); WBC 11.4 10x3/uL (4.8-10.8)
[2019-04-13 05:42] LABS: ALBUMIN 2.5 g/dL (3.4-5.0); CALC OSMOLALITY 286 mosm/kg (275-300); CALCIUM 8.2 mg/dL (8.5-10.1); CARBON DIOXIDE 28.5 mmol/L (21.0-32.0); CHLORIDE - SERUM 106 mmol/L (98-107); CREATININE - SERUM 0.8 mg/dL (0.6-1.3); POTASSIUM - SERUM 3.5 mmol/L (3.5-5.1); SODIUM 141 mmol/L (136-145); UREA NITROGEN 21 mg/dL (7-18); eGFR NON AFRICAN AMERICAN 75 mL/min (90-120)
[2019-04-13 06:10] LABS: GLUCOSE 150 mg/dL (74-106)
[2019-04-13 06:23] LABS: ALKALINE PHOSPHATASE 70 U/L (46-116); ALT (SGPT) 15 U/L (10-68); BILIRUBIN - TOTAL 0.29 mg/dL (0.2-1.3); PROTEIN - SERUM 5.5 g/dL (6.4-8.2)
--- NOTE | 2019-04-13 07:00 | NUR ---
RECEIVED REPORT FROM NIGHT NURSE. PATIENT RESTING IN BED C CALL MANNING IN REACH. AWAKE AND ALERT ON VENTILATOR VIA TRACH. NO COMPLAINTS. VSS. WILL CONTINUE TO MONITOR.
--- NOTE | 2019-04-13 07:54 | NUR ---
AIRBORNE OPERATIONS MANAGER FROM [facility] CALLED TO INFORM THEY DO NOT HAVE A BED FOR PATIENT YET BUT WILL CALL SOON ONE IS AVAILABLE. NOTIFIED PATIENT.
--- NOTE | 2019-04-13 08:30 | NUR ---
CALLED REPORT TO BLANCA AT [facility]
--- NOTE | 2019-04-13 09:21 | NUR ---
PATIENT PICKED UP PICKED UP BY [facility] AT THIS TIME. ALL BELONGINGS SENT WITH PATIENT.
--- NOTE | 2019-04-13 13:10 | MORECARE ---
CASE MANAGEMENT DISCHARGE SUMMARY PATIENT: ELANA ARNOLD UNIT: [id number] ADM DATE: 03/18/19 AGE: 69 : [birth year] SEX: F ROOM/BED: D.2304 AUTHOR: ELKIN,DOC PHYSICIAN: REFERRING PHYSICIAN: REY RUSS MD DATE OF SERVICE: 04/13/19 Discharge Plan Patient Name: ELANA ARNOLD Facility: [facility]:[place] : 1950 Planned Disposition: Home with Home Health Anticipated Discharge Date: 04/06/19 Discharge Date: 04/13/2019 Expected LOS: 19 Initial Reviewer: [email or web address] Initial Review Date: 03/20/2019 Generated: 04/13/19 2:10 pm Comments DCP- Discharge Planning Updated by [id number]: Georgia Mccain on 04/12/19 4:[address] Kati with [facility] came to evaluate patient this am. She later called back after speaking with their medical appointment clerk and have agreed to accept patient plan for discharge in am to [facility]. [facility] has been notified will pickup patient for transfer around 0830 04/13/19. Nursing to call report to [phone] and to send updated MAR and send CD with images with patient in am. D/C IMM signed 1525 CM will continue to follow and assist as needed with discharge planning / needs. DCP- Discharge Planning Updated by [id number]: Georgia Mccain on 04/09/19 4:[address] trach placed yesterday and PEG placed today. Plan for transfer to LTACH on Friday DCP- Discharge Planning Updated by [id number]: Georgia Mccain on 04/08/19 6:[address] Late Entry 04/07/19 CM received LTACH referral. CM will get with family to get SHAHBAZ signed for LTACH. 04/08/19 CM spoke with nursing and they stated that the family has requested [facility] for [facility]. CM called and faxed records to Kati with [facility]. She stated that it will probably be Friday before they can accept d/t pulmonary coverage. CM explained that patient had trach placed today and possible PEG placement tomorrow. CM will continue to follow and assist as needed with discharge planning needs. DCP- Discharge Planning Updated by [id number]: Derek Keith on 04/05/19 3:[address] Patient Name: ELANA ARNOLD Encounter No: [id number] : 1950 Primary Insurance: MEDICARE A & B Anticipated DC Date: 04-06-2019 Planned Disposition: Home with Home Health External Planned Provider: NO PROVIDER PREFERENCE DCP follow-up note: CM RECEIVED ORDER FOR INPATIENT REHAB PRESCREENING. CM MET WITH PT IN ROOM TO DISCUSS DISCHARGE PLANNING AND NEEDS. CM DISCUSSED REHAB OPTIONS, LOCATIONS AND PROVIDERS. PT REPORTS SHE IS NOT GOING TO REHAB ANYWHERE. PT REPORTS SHE IS GOING HOME WHERE HER WILL BE AVAILABLE TO ASSIST HER IF NEEDED. CM DISCUSSED THERAPY NOTES, PT INSISTS SHE IS STRONG ENOUGH TO DISCHARGE HOME AND IS READY TO GO HOME TODAY. PT STATES SHE WILL ACCEPT HOME HEALTH. CM PROVIDED PT HOME HEALTH PROVIDER LISTING, PT HAS NO CHOICE ON PROVIDER, CHOICE SIGNED FOR NO HOME HEALTH PROVIDER. IMPORTANT MESSAGE FROM MEDICARE PROVIDED AND EXPLAINED. CM CALLED AND NOTIFIED TYRELL OF [facility] INPATIENT REHAB. PT REFUSED REHAB PLACEMENT. WANTS HOME WITH SPOUSE AND HOME HEALTH. CM TO ARRANGE HOME HEALTH SERVICES WITH PHYSICIAN AGREEMENT AND ORDER. Derek Keith, CASE MANGEMENT DCP- Discharge Planning Updated by [id number]: Annabella Rader on 04/03/19 1:[address] CM RECEIVED A TELEPHONE CALL FROM TATY MALAVE. [facility] LIAISON. CLAUDIA, THE PERINATAL BREASTFEEDING ASSISTANT, RECIEVED A CONSULT. REHAB IS FOLLOWING THIS PATIENT POST EXTUBATION. THEY WILL REVIEW HER PROGRESS AND ADVISE REGARDING ACUTE REHAB ADMISSION. DCP- Discharge Planning Updated by [id number]: Georgia Mccain on 03/31/19 4:[address] CM called nursing telesales supervisor Carlyn that family is requesting lateral transfer to [facility] in [place]. CM called [facility] in [phone] Access Center. KRISHNA spoke with Baldemar and gave the patients information and family request for transfer. Baldemar stated that she couldn't find any records where the patient had been to their facility. Baldemar stated that they didn't have any ICU beds currently available but she would needs to speak with her physician grant administrator and would call CM back. CM called [facility] while awaiting callback from [facility] on transportation cost. Citlalli with [facility] gave a nunez quote of approximately $1800.00 with $1200. 00 needing to be paid up front and the rest can be paid out in monthly installments. CM received call back from Baldemar @ [facility]. Baldemar stated that Dr. Zhang had denied transfer d/t it being a lateral transfer ( [facility] has the specialist needed for patient's care) and no ICU bed availability. Baldemar stated that the patient could possibly transfer to [facility] [phone] for vent support. CM contacted [facility] [phone] and patient has been at their facility this year 10/26/18 -12/17/18 patient was listed under [facility] at that time. CM will check with MD to see if patient is appropriate for LTACH placement if that is the case and if patient is accepted for LTACH then transportation that would be covered for transfer. CM will continue to follow and assist as needed with discharge planning / needs. Appended by Georgia Mccain on 03/31/2019 17:58 CDT: Dr. Contreras states that he plans on doing a bronch on and possible extubation. If unsuccessful in extubation then he will refer to LTACH. DCP- Discharge Planning Updated by [id number]: Georgia Mccain on 03/31/19 10:[address] CM received call from patient daughter Genoveva Arnold [phone] requesting for patient to be transferred to [facility] in [place]. Genoveva stated that patient has was in [facility] [place] with this same condition in the past and is wanting to transfer there. Daughter denied any dislike to facility. CM stated that she would check on this and get back in touch with her. CM will continue to follow and assist as needed with discharge planning / needs. Appended by Georgia Mccain on 03/31/2019 11:41 CDT: KRISHNA contacted [facility] Charge Nurse that CM is working on this matter if family should ask. DCP- Discharge Planning Updated by [id number]: Natalie Shepherd on 03/23/19 4:[address] Patient Name: ELANA ARNOLD Admission Status: ER Accout number: [id number] Admission Date: 03-18-2019 : 1950 Admission Diagnosis:SHORTNESS OF BREATH Attending: REY RUSS Current LOS: 5 Anticipated DC Date: Planned Disposition: Home Primary Insurance: MEDICARE A & B Discharge Planning Comments: MD IS PLANNING FOR PATIENT TO BE EXTUBATED TODAY. AFTER SHE IS EXTUBATED I WILL MEET WITH HER AND SEE IF SHE IS INTERESTED IN [facility] OR OTHER SERVICES. PLEASE ADD AN ORDER FOR PT TO ASSESS AFTER SHE IS EXTUBATED. PATIENT STILL ON THE VENT OF NOW . CM TO FOLLOW AND ASSIST. Gymnastics Coach Or Instructor: Natalie Shepherd DCP- Discharge Planning Updated by [id number]: Mana Padilla on 03/20/19 9:[address] Patient Name: ELANA ARNOLD Admission Status: ER Accout number: [id number] Admission Date: 03-18-2019 : 1950 Admission Diagnosis: Attending: REY RUSS Current LOS: 2 Anticipated DC Date: Planned Disposition: Home Primary Insurance: MEDICARE A & B Discharge Planning Comments: CM AFTER OBTAINING VERBAL CONSENT COMPLETED INITIAL ASSESSMENT. PT WAS EDUCATED ON CM ROLE AND ON ALL SERVICES AVAILABLE LIKE DME, HOME HEALTH AND REHAB SERVICES. PT DENIES ANY NEEDS AT THIS TIME. LIVES WITH SPOUSE AND STATES HOME IS A SAFE DC PLAN. CM WILL CONT TO FOLLOW THRU STAY Gymnastics Coach Or Instructor: Mana Padilla DCPIA - Discharge Planning Initial Assessment Updated by [email or web address]: Mana Padilla on 03/20/19 10:32 am * Is the patient Alert and Oriented? Yes * How many steps to enter\exit or inside your home? * PCP NONE * Pharmacy [facility] * Preadmission Environment Home with Family * ADLs Independent * Verbal permission to speak to the caregivers and representatives has been obtained from the patient. N/A * Additional services required to return to the preadmission environment? No * Can the patient safely return to the preadmission environment? Yes * Has this patient been hospitalized within the prior 30 days at any hospital? No Coverage Notice Reviewer: [id number] Keith Notice Issued Date-Time: 04/05/2019 12:25 Notice Type: Patient Choice Letter Notice Delivered To: Patient Relationship to Patient: Loss Prevention Specialist Name: Delivery Method: HAND - Hand Delivered Kayli Days: Prior Verbal Notification: Recipient Understood Notice: Yes Recipient Signature: Yes Med Rec Note Co-signed by Attending: Coverage Notice Comment: NO HOME HEALTH PROVIDER PREFERENCE Reviewer: [id number] Keith Notice Issued Date-Time: 04/05/2019 12:25 Notice Type: IM Discharge Notice Notice Delivered To: Patient Relationship to Patient: Loss Prevention Specialist Name: Delivery Method: HAND - Hand Delivered Kayli Days: Prior Verbal Notification: Recipient Understood Notice: Yes Recipient Signature: Yes Med Rec Note Co-signed by Attending: Coverage Notice Comment: Reviewer: [id number] Demetris Mccain Notice Issued Date-Time: 04/07/2019 16:30 Notice Type: Patient Choice Letter Notice Delivered To: Family Member Relationship to Patient: Spouse Loss Prevention Specialist Name: Derek Arnold Delivery Method: - Kayli Days: Prior Verbal Notification: Recipient Understood Notice: Recipient Signature: Yes Med Rec Note Co-signed by Attending: Coverage Notice Comment: MAGDIEL HARTMANN Reviewer: [id number] Demetris Mccain Notice Issued Date-Time: 04/12/2019 15:25 Notice Type: IM Discharge Notice Notice Delivered To: Family Member Relationship to Patient: Spouse Loss Prevention Specialist Name: Derek Arnold Delivery Method: - Kayli Days: Prior Verbal Notification: Recipient Understood Notice: Yes Recipient Signature: Yes Med Rec Note Co-signed by Attending: Coverage Notice Comment: Last DP export: 04/12/19 4:57 p Patient Name: ELANA ARNOLD Page [id number] at 1310 All edits/amendments must be made on the electronic document DICTATION DATE: 04/13/19 1310 STOCK RAISER: LISS 04/13/19 1310 RPT#: [id number] DC DATE:04/13/19 STATUS: DIS IN [facility] [address] [place] [address] END OF REPORT
== END 2019-04-13 10:15 | disposition short-term general hospital (02) | DRG 4 ==
LOC: D.ER 13:58 → D.ICU 18:23 → D.M2 18:23 → D.ICU 03-22 06:47 → D.M2 04-02 14:30 → D.ICU 04-06 12:25
PROVIDERS: Emergency Medicine; Family Medicine; Family Medicine Adult Medicine; Internal Medicine Pulmonary Disease; ADMIT Internal Medicine Nephrology; ATTEND Internal Medicine Nephrology
PROC: 5A1935Z Respiratory Ventilation, Less than 24 Consecutive Hours (ICD-10-PCS; 2019-03-22)
PROC: 0BH17EZ Insertion of Endotracheal Airway into Trachea, Via Natural or Artificial Opening (ICD-10-PCS; 2019-03-22)
PROC: 0BH17EZ Insertion of Endotracheal Airway into Trachea, Via Natural or Artificial Opening (ICD-10-PCS; principal; 2019-03-23)
PROC: 5A1955Z Respiratory Ventilation, Greater than 96 Consecutive Hours (ICD-10-PCS; 2019-03-23)
PROC: 0B9B8ZZ Drainage of Left Lower Lobe Bronchus, Via Natural or Artificial Opening Endoscopic (ICD-10-PCS; 2019-04-01)
PROC: 0B968ZZ Drainage of Right Lower Lobe Bronchus, Via Natural or Artificial Opening Endoscopic (ICD-10-PCS; 2019-04-01)
PROC: 0BH17EZ Insertion of Endotracheal Airway into Trachea, Via Natural or Artificial Opening (ICD-10-PCS; 2019-04-06)
PROC: 5A1955Z Respiratory Ventilation, Greater than 96 Consecutive Hours (ICD-10-PCS; 2019-04-06)
PROC: 05HY33Z Insertion of Infusion Device into Upper Vein, Percutaneous Approach (ICD-10-PCS; 2019-04-07)
PROC: 0B113F4 Bypass Trachea to Cutaneous with Tracheostomy Device, Percutaneous Approach (ICD-10-PCS; 2019-04-08)
PROC: 0BJ08ZZ Inspection of Tracheobronchial Tree, Via Natural or Artificial Opening Endoscopic (ICD-10-PCS; 2019-04-08)
PROC: 0DH63UZ Insertion of Feeding Device into Stomach, Percutaneous Approach (ICD-10-PCS; 2019-04-09)
DX: J15.211 Pneumonia due to Methicillin susceptible Staphylococcus aureus (principal); I50.31 Acute diastolic (congestive) heart failure; J96.21 Acute and chronic respiratory failure with hypoxia; G93.41 Metabolic encephalopathy; N17.0 Acute kidney failure with tubular necrosis; J96.22 Acute and chronic respiratory failure with hypercapnia; I13.0 Hypertensive heart and chronic kidney disease with heart failure and stage 1 through stage 4 chronic kidney disease, or unspecified chronic kidney disease; E11.65 Type 2 diabetes mellitus with hyperglycemia; G47.33 Obstructive sleep apnea (adult) (pediatric); M32.9 Systemic lupus erythematosus, unspecified; M35.00 Sjogren syndrome, unspecified; N18.3 Chronic kidney disease, stage 3 (moderate); E11.22 Type 2 diabetes mellitus with diabetic chronic kidney disease; D50.9 Iron deficiency anemia, unspecified; E66.01 Morbid (severe) obesity due to excess calories; Z68.37 Body mass index [BMI] 37.0-37.9, adult; M41.9 Scoliosis, unspecified; E11.21 Type 2 diabetes mellitus with diabetic nephropathy; E03.9 Hypothyroidism, unspecified

== ENCOUNTER → 2019-08-30 17:00 | Outpatient (CLI) | payer MEDICARE, OTHER ==
[2019-03-27 14:08] VITALS: BMI 37.4
[2019-08-30 18:38] LABS: APPEARANCE CLEAR (CLEAR); BILIRUBIN NEGATIVE (NEGATIVE); COLOR YELLOW (YELLOW); GLUCOSE NEGATIVE (NEGATIVE); KETONE NEGATIVE (NEGATIVE); NITRITE NEGATIVE (NEGATIVE); PROTEIN NEGATIVE (NEGATIVE); UROBILINOGEN NORMAL (NORMAL)
== END | disposition home or self-care (01) ==
LOC: D.LABREF 17:00
PROVIDERS: ATTEND Specialist
DX: J96.21 Acute and chronic respiratory failure with hypoxia (principal)